=== PATIENT | female | born 1940 | race Caucasian/White ===

== ENCOUNTER → 2021-02-03 10:30 | Outpatient (CLI) | payer MEDICARE, SELFPAY ==
[2021-02-03 12:41] LABS: Bilirubin Urine UA NEGATIVE (NEGATIVE); Color Urine UA YELLOW; Glucose Urine UA NEGATIVE (Negative); Ketones Urine UA NEGATIVE (NEGATIVE); Leukocyte Esterase Urine UA TRACE (NEGATIVE); Nitrite Urine UA POSITIVE (Negative); Occult Blood Urine UA 2+ (Negative); Protein Urine UA NEGATIVE (Negative); Urobilinogen Urine UA 0.2 E.U./dL (0.2)
[2021-02-03 13:00] LABS: Appearance Urine UA Slightly Cloudy
[2021-02-03 13:04] LABS: Bacteria Urine Many (>30); Culture Indicated Urine Specimen Cultured; RBC Urine 1-5/HPF (0-5/HPF); WBC Urine 1-5/HPF (0-5/HPF)
== END ==
PROVIDERS: Referring Provider Student in an Organized Health Care Education/Training Program; Visit Provider Student in an Organized Health Care Education/Training Program
DX: R41.0 Disorientation, unspecified (principal)
CPT/HCPCS: 81001; 87077; 87086; 87186

== ENCOUNTER → 2021-02-25 13:52 | Outpatient (ROUT) | payer MEDICARE, SELFPAY ==
[2021-02-25 13:59] LABS: Appearance Urine UA CLEAR; Bilirubin Urine UA NEGATIVE (NEGATIVE); Color Urine UA YELLOW; Glucose Urine UA NEGATIVE (Negative); Ketones Urine UA TRACE (NEGATIVE); Leukocyte Esterase Urine UA NEGATIVE (NEGATIVE); Nitrite Urine UA NEGATIVE (Negative); Occult Blood Urine UA TRACE-INTACT (Negative); Protein Urine UA TRACE (Negative); Specific Gravity Urine UA 1.025 (1.000-1.035); Urobilinogen Urine UA 0.2 E.U./dL (0.2)
[2021-02-25 14:03] LABS: pH Urine UA 5.5 (4.5-8.0)
[2021-02-25 14:04] LABS: RBC Urine 5-10/HPF (0-5/HPF); WBC Urine 0-1/HPF (0-5/HPF)
[2021-02-25 14:05] LABS: Bacteria Urine None Seen
== END ==
PROVIDERS: Visit Provider Student in an Organized Health Care Education/Training Program
DX: N39.0 Urinary tract infection, site not specified (principal)
CPT/HCPCS: 81001; 87086

== ENCOUNTER → 2021-03-31 15:13 | Outpatient (CLI) | payer MEDICARE, SELFPAY ==
[2021-03-31 16:55] LABS: Appearance Urine UA CLEAR; Bilirubin Urine UA NEGATIVE (NEGATIVE); Color Urine UA YELLOW; Glucose Urine UA NEGATIVE (Negative); Ketones Urine UA TRACE (NEGATIVE); Leukocyte Esterase Urine UA NEGATIVE (NEGATIVE); Nitrite Urine UA NEGATIVE (Negative); Occult Blood Urine UA TRACE-LYSED (Negative); Protein Urine UA TRACE (Negative); Specific Gravity Urine UA 1.025 (1.000-1.035); Urobilinogen Urine UA 0.2 E.U./dL (0.2)
[2021-03-31 17:03] LABS: RBC Urine 1-5/HPF (0-5/HPF)
[2021-03-31 17:04] LABS: Amorphous Sediment Urine 1+; Bacteria Urine Occasional (0-1); Culture Indicated Urine Specimen Cultured; Mucus Urine 1+ (Negative); Squamous Epithelial Cell Urine 1-5 /HPF (0-5/HPF); WBC Urine 1-5/HPF (0-5/HPF)
== END ==
PROVIDERS: PCP Student in an Organized Health Care Education/Training Program; Referring Provider Student in an Organized Health Care Education/Training Program; Visit Provider Student in an Organized Health Care Education/Training Program
DX: Z00.01 Encounter for general adult medical examination with abnormal findings (principal); M81.0 Age-related osteoporosis without current pathological fracture; G20 Parkinson's disease; R26.89 Other abnormalities of gait and mobility; E53.8 Deficiency of other specified B group vitamins; D50.9 Iron deficiency anemia, unspecified
CPT/HCPCS: 81001; 87086

== ENCOUNTER → 2021-04-13 11:27 | Outpatient (ROUT) | payer MEDICARE, SELFPAY ==
[2021-04-13 11:44] LABS: Appearance Urine UA CLEAR; Bilirubin Urine UA NEGATIVE (NEGATIVE); Color Urine UA YELLOW; Glucose Urine UA NEGATIVE (Negative); Ketones Urine UA NEGATIVE (NEGATIVE); Leukocyte Esterase Urine UA NEGATIVE (NEGATIVE); Nitrite Urine UA NEGATIVE (Negative); Occult Blood Urine UA 1+ (Negative); Protein Urine UA NEGATIVE (Negative); Urobilinogen Urine UA 0.2 E.U./dL (0.2)
[2021-04-13 11:45] LABS: pH Urine UA 6.5 (4.5-8.0)
[2021-04-13 11:47] LABS: RBC Urine 1-5/HPF (0-5/HPF)
[2021-04-13 11:48] LABS: Bacteria Urine None Seen; Culture Indicated Urine Cult Not Indicated; WBC Urine None Seen (0-5/HPF)
== END ==
PROVIDERS: PCP Student in an Organized Health Care Education/Training Program; Visit Provider Student in an Organized Health Care Education/Training Program
DX: F05 Delirium due to known physiological condition (principal)
CPT/HCPCS: 81001

== ENCOUNTER → 2021-06-03 09:45 | Outpatient (CLI) | payer MEDICARE, SELFPAY ==
[2021-06-03 10:01] LABS: Appearance Urine UA CLEAR; Bilirubin Urine UA NEGATIVE (NEGATIVE); Color Urine UA YELLOW; Glucose Urine UA TRACE g/dL (Negative); Ketones Urine UA NEGATIVE (NEGATIVE); Leukocyte Esterase Urine UA NEGATIVE (NEGATIVE); Nitrite Urine UA NEGATIVE (Negative); Occult Blood Urine UA 1+ (Negative); Protein Urine UA NEGATIVE (Negative); Urobilinogen Urine UA 0.2 E.U./dL (0.2)
[2021-06-03 10:13] LABS: Bacteria Urine Moderate (10-30); Culture Indicated Urine Cult Not Indicated; RBC Urine 1-5/HPF (0-5/HPF); Squamous Epithelial Cell Urine 1-5 /HPF (0-5/HPF); WBC Urine 1-5/HPF (0-5/HPF)
== END ==
PROVIDERS: PCP Student in an Organized Health Care Education/Training Program; Referring Provider Student in an Organized Health Care Education/Training Program; Visit Provider Student in an Organized Health Care Education/Training Program
DX: F03.90 Unspecified dementia, unspecified severity, without behavioral disturbance, psychotic disturbance, mood disturbance, and anxiety (principal)
CPT/HCPCS: 81001

== ENCOUNTER → 2021-08-13 14:18 | Outpatient (CLI) | payer MEDICARE, SELFPAY ==
[2021-08-13 15:45] LABS: Appearance Urine UA CLEAR; Bilirubin Urine UA NEGATIVE (NEGATIVE); Color Urine UA YELLOW; Glucose Urine UA NEGATIVE (Negative); Ketones Urine UA NEGATIVE (NEGATIVE); Leukocyte Esterase Urine UA NEGATIVE (NEGATIVE); Nitrite Urine UA NEGATIVE (Negative); Occult Blood Urine UA 1+ (Negative); Protein Urine UA NEGATIVE (Negative); Urobilinogen Urine UA 0.2 E.U./dL (0.2)
[2021-08-13 16:06] LABS: pH Urine UA 5.5 (4.5-8.0)
[2021-08-13 16:07] LABS: Bacteria Urine Occasional (0-1); Culture Indicated Urine Cult Not Indicated; RBC Urine 5-10/HPF (0-5/HPF); Squamous Epithelial Cell Urine 0-1 /HPF (0-5/HPF); WBC Urine 0-1/HPF (0-5/HPF)
== END ==
PROVIDERS: PCP Student in an Organized Health Care Education/Training Program; Referring Provider Student in an Organized Health Care Education/Training Program; Visit Provider Student in an Organized Health Care Education/Training Program
DX: R39.15 Urgency of urination (principal)
CPT/HCPCS: 81001

== ENCOUNTER 2021-08-30 11:50 | Emergency (ER) | payer MEDICARE, SELFPAY ==
[2021-08-30 12:02] VITALS: BP 144/78; PULSE 75; RESP 16; TEMP 36.2; O2SAT 99; BMI 21.0
--- NOTE | 2021-08-30 13:18 | PC.NURSE ---
Call from she was sent for UTI symptoms. Call Lanie: [phone]
--- NOTE | 2021-08-30 13:55 | ED.FEMALEGU ---
HPI - Female Genitourinary <Kwabena Dave PA-C - Last Filed: 08/30/21 14:51> General Chief complaint: Urogenital-Female Stated complaint: possible uti Time Seen by Provider: 08/30/21 12:06 Source: EMS Mode of arrival: EMS History of Present Illness HPI Narrative: 80-year-old female with no reported past medical history sent to the ED by [facility] where she resides for dark colored urine and a potential blood clot in the urine. Patient states that she did not note any blurred in her urine, she even suspects that they might have mistaken somebody else's urine for hers. Patient states that over the last week she has had increased urgency, has not noted increased frequency. Denies dysuria. Patient denies fever, chills, nausea, vomiting, chest pain, shortness of breath, lightheadedness, dizziness, syncope. Related Data Previous Rx's Medication Instructions Recorded cefpodoxime 200 mg tablet 400 mg PO Q12H 10 days #40 tabs 08/30/21 Allergies Allergy/AdvReac Type Severity Reaction Status Date / Time Sulfa (Sulfonamide Allergy Hives Verified 08/30/21 12:04 Antibiotics) Review of Systems <Kwabena Dave PA-C - Last Filed: 08/30/21 14:51> Review of Systems ROS Unobtainable: All systems reviewed & are unremarkable except as noted in HPI and below Constitutional Constitutional: Denies chills, Denies fatigue, Denies fever(s), Denies frequent falls, Denies lethargy and Denies weakness Eyes Eyes: Denies change in vision, Denies eye discharge, Denies irritation and Denies loss of vision ENT Ears, Nose, Mouth, and Throat: Denies change in voice, Denies dizziness, Denies neck pain, Denies sore throat and Denies throat swelling Cardiovascular Cardiovascular: Denies chest pain, Denies irregular heart rhythm, Denies lightheadedness, Denies palpitations, Denies dyspnea, Denies dyspnea on exertion and Denies orthopnea Respiratory Respiratory: Denies cough, Denies dyspnea, Denies dyspnea on exertion and Denies wheezing Gastrointestinal Gastrointestinal: Denies abdominal pain, Denies change in bowel habits, Denies diarrhea, Denies nausea and Denies vomiting Genitourinary Genitourinary: Reports hematuria, Denies dysuria, Denies flank pain, Denies urinary incontinence and Reports urinary urgency Comments: No urinary frequency Musculoskeletal Musculoskeletal: Denies back pain, Denies muscle weakness, Denies neck pain, Denies numbness and Denies tingling Integumentary/Breasts Skin/Breast: Denies pruritus, Denies erythema, Denies rash and Denies wounds Neurologic Neurologic: Denies behavioral changes, Denies confusion, Denies dizziness, Denies frequent falls, Denies loss of vision, Denies numbness, Denies tingling and Denies weakness Psychiatric Psychiatric: Denies anxiety, Denies behavioral changes, Denies confusion, Denies depression, Denies homicidal ideation and Denies suicidal ideation Endocrine Endocrine: Denies fatigue, Denies flushing and Denies palpitations Hematologic/Lymphatic Hematologic/Lymphatic: Denies easy bruising Allergic/Immunologic Allergic/Immunologic: Denies urticaria, Denies throat swelling and Denies wheezing Patient History <Kwabena Dave PA-C - Last Filed: 08/30/21 14:51> alcohol intake frequency: a few times a week Alcohol type: wine Substance Use Type: does not use Exam <MOIRA Alexandre Last Filed: 08/30/21 14:51> Initial Vital Signs Initial Vital Signs: Vital Signs Temperature 97.2 F L 08/30/21 12:02 Pulse Rate 75 08/30/21 12:02 Respiratory Rate 16 08/30/21 12:02 Blood Pressure 144/78 H 08/30/21 12:02 Pulse Oximetry 99 08/30/21 12:02 Oxygen Delivery Method 08/30/21 12:02 Const General: cooperative HENPR Head: normocephalic and atraumatic Ears: external ears normal and TM's normal bilaterally Nose: external nose normal and No nasal discharge Face and sinus: sinuses nontender, face symmetric, no sinus tenderness and No dry mucous membranes Mouth: oral mucosae normal and moist mucous membranes Teeth and gingiva: dentition normal Throat: tonsils normal and uvula midline Eyes General: Yes appearance normal, both eyes and all related structures Eyelids: eyelids normal Conjunctivae: conjunctivae normal Sclera: sclerae normal Pupils: PERRL EOM: EOM intact bilaterally Neck Neck: normal visual inspection, trachea midline, No lymphadenopathy, No midline deformity and No JVD Lymphatic: No lymphedema Chest Chest: normal inspection of the chest Resp Effort & Inspection: normal respiratory effort, able to speak in complete sentences, no respiratory distress and no use of accessory muscles Auscultation: clear to auscultation bilaterally, no rales, no rhonchi and no wheezes Cardio Rate: regular rate Rhythm: regular rhythm Heart Sounds: no click, no gallops, no murmurs and no rubs Pulses: normal peripheral pulses GI Inspection: non-distended Palpation: soft, no hepatosplenomegaly, No guarding, No pulsatile mass and No tender Auscultation: normal bowel sounds Other: Abdomen is soft, nondistended, nontender to palpation. General: No CVA tenderness Back/Spine/Pelvis Back: No CVA tenderness Cervical Spine: cervical ROM normal and No pain with cervical ROM Thoracic/Lumbar Spine: thoracic and lumbar spine normal to inspection Skin General: no rashes or lesions noted, No jaundice and No petechiae Neuro General: patient alert, patient oriented x3, gait normal and no focal motor deficits Speech: speech normal Extrem General: full ROM, no clubbing, cyanosis or edema, no pedal edema and no calf tenderness Psych Appearance: well kempt Mental Status: mental status grossly normal Attitude: cooperative Thought Content: normal and suicidality Judgment: judgment good <DO Francisco Huerta Last Filed: 08/31/21 20:41> Initial Vital Signs Initial Vital Signs: Vital Signs Temperature 97.2 F L 08/30/21 12:02 Pulse Rate 75 08/30/21 12:02 Respiratory Rate 16 08/30/21 12:02 Blood Pressure 144/78 H 08/30/21 12:02 Pulse Oximetry 99 08/30/21 12:02 Oxygen Delivery Method 08/30/21 12:02 Course <Kwabena Dave PA-C - Last Filed: 08/30/21 14:51> Orders Ordered: ED Orders 08/30/21 13:37 Urinalysis and Microscopic Stat Urine Culture Stat Vital Signs Vital signs: Vital Signs - 8 hr 08/30/21 12:02 Temperature 97.2 F L Pulse Rate 75 Respiratory Rate 16 Blood Pressure 144/78 H Pulse Oximetry 99 Oxygen Delivery Method Room Air <Nicolle Torres DO - Last Filed: 08/31/21 20:41> Orders Ordered: ED Orders 08/30/21 13:37 Urinalysis and Microscopic Stat Urine Culture Stat Vital Signs Vital signs: Vital Signs - 8 hr 08/30/21 12:02 Temperature 97.2 F L Pulse Rate 75 Respiratory Rate 16 Blood Pressure 144/78 H Pulse Oximetry 99 Oxygen Delivery Method Room Air MDM - Female Genitourinary <Kwabena Dave PA-C - Last Filed: 08/30/21 14:51> Lab Data Lab results narrative: UA positive for UTI. Will send for urine culture. Labs: Lab Results 08/30/21 Range/Units 13:37 Urine Color Yellow Urine Appearance Cloudy Urine pH 8.0 (4.5-8.0) Ur Specific [place] 1.015 (1.000-1.035) Urine Protein 2+ H (Negative) Urine Glucose (UA) Negative (Negative) g/dL Urine Ketones Negative (NEGATIVE) Urine Occult Blood 3+ H (Negative) Urine Nitrate Positive H (Negative) Urine Bilirubin Negative (NEGATIVE) Urine Urobilinogen 0.2 (0.2) E.U./dL Ur Leukocyte Esterase 3+ H (NEGATIVE) Urine RBC 5-10/hpf H (0-5/HPF) Urine WBC >100/hpf H (0-5/HPF) Triple Phos Crystals Few Urine Bacteria Many (>30) H (None) Ur Culture Indicated? Specimen cultured MDM Narrative Medical decision making narrative: 80-year-old female with no reported past medical history sent to the ED by [facility] where she resides for dark colored urine and a potential blood clot in the urine. Concern for UTI. Will check UA, reassess. UA positive for UTI. Will send sample for urine culture. Prescribed cefpodoxime. ED return precautions discussed with patient. Patient verbalized understanding. <Nicolle Torres DO - Last Filed: 08/31/21 20:41> Lab Data Labs: Lab Results 08/30/21 Range/Units 13:37 Urine Color Yellow Urine Appearance Cloudy Urine pH 8.0 (4.5-8.0) Ur Specific [place] 1.015 (1.000-1.035) Urine Protein 2+ H (Negative) Urine Glucose (UA) Negative (Negative) g/dL Urine Ketones Negative (NEGATIVE) Urine Occult Blood 3+ H (Negative) Urine Nitrate Positive H (Negative) Urine Bilirubin Negative (NEGATIVE) Urine Urobilinogen 0.2 (0.2) E.U./dL Ur Leukocyte Esterase 3+ H (NEGATIVE) Urine RBC 5-10/hpf H (0-5/HPF) Urine WBC >100/hpf H (0-5/HPF) Triple Phos Crystals Few Urine Bacteria Many (>30) H (None) Ur Culture Indicated? Specimen cultured Discharge Plan Departure Patient Disposition: Home Clinical Impression: Urinary tract infection Instructions: DI for Urinary Tract Infection (UTI) Activity Restrictions/Additional Instructions: You were evaluated in the ED today for dark urine, urinary urgency. Your urine shows a urinary tract infection, for which you are being started on antibiotics. Please complete the full course of antibiotics. Return to the ED if you have worsening symptoms, nausea, vomiting, fever, chills, painful urination, chest pain, shortness of breath. Prescriptions: New cefpodoxime 200 mg tablet 400 mg PO Q12H 10 Days Qty: 40 0RF Rx Instructions: must administer with a meal/food Referrals: Nadia Casanova MD [Primary Care Provider] - Visit Report Forms: Patient Portal/API <Nicolle Torres DO - Last Filed: 08/31/21 20:41> Cosign ED Attending Cosnavjotature Attestation: I was immediately available in the department for consultation. Documentation has been reviewed. I agree with assessment and plan.
[2021-08-30 14:13] LABS: Appearance Urine UA CLOUDY; Bilirubin Urine UA NEGATIVE (NEGATIVE); Color Urine UA YELLOW; Glucose Urine UA NEGATIVE (Negative); Ketones Urine UA NEGATIVE (NEGATIVE); Leukocyte Esterase Urine UA 3+ (NEGATIVE); Nitrite Urine UA POSITIVE (Negative); Occult Blood Urine UA 3+ (Negative); Protein Urine UA 2+ (Negative); Specific Gravity Urine UA 1.015 (1.000-1.035); Urobilinogen Urine UA 0.2 E.U./dL (0.2)
[2021-08-30 14:36] LABS: Bacteria Urine Many (>30); Culture Indicated Urine Specimen Cultured; RBC Urine 5-10/HPF (0-5/HPF); Triple Phosphate Crystal Urine Few; WBC Urine >100/HPF (0-5/HPF)
[2021-08-30 16:28] VITALS: BP 145/79; PULSE 76; RESP 16; O2SAT 99
== END 2021-08-30 16:15 | disposition home or self-care (01) ==
PROVIDERS: Emergency Provider Student in an Organized Health Care Education/Training Program; PCP Student in an Organized Health Care Education/Training Program
DX: N39.0 Urinary tract infection, site not specified (principal)
CPT/HCPCS: 81001; 87077; 87086; 87186; 99281; 99282

== ENCOUNTER 2021-09-29 12:08 | Emergency (ER) | payer MEDICARE, SELFPAY ==
[2021-09-29 12:12] VITALS: PULSE 77; O2SAT 96
[2021-09-29 12:15] VITALS: BP 135/63; PULSE 71; RESP 18; TEMP 36.6; O2SAT 97; BMI 18.3
[2021-09-29 12:26] VITALS: BP 135/63; PULSE 72; RESP 23; O2SAT 97
[2021-09-29 12:38] LABS: Add Manual Diff / Slide Review NO; Basophils Absolute Auto 100 /uL (0-100); Basophils Percent Auto 0.9 % (0-2); Eosinophils Absolute Auto 100 /uL (0-450); Eosinophils Percent Auto 1.1 % (2-4); Hematocrit 34.2 % (36-46); Hemoglobin 11.8 g/dL (12.0-16.0); Lymphocytes Absolute Auto 1700 /uL (1100-4500); Lymphocytes Percent Auto 26.2 % (25-40); Mean Corpuscular HGB Conc 34.3 % (30-36); Mean Corpuscular Hemoglobin 32.5 PG (26-34); Mean Corpuscular Volume 94.7 fL (80-100); Monocytes Absolute Auto 600 /uL (0-900); Monocytes Percent Auto 9.4 % (3-14); Neutrophils Absolute Auto 4000 /uL (1500-7000); Neutrophils Percent Auto 62.4 % (50-75); Platelet Count 503 X10^3/uL (150-400); Red Blood Cell Count 3.62 X10^6/uL (4.0-5.2); Red Cell Distribution Width 14.6 % (11.6-14.8); White Blood Cell Count 6.5 X10^3/uL (4.5-11.0)
--- NOTE | 2021-09-29 12:43 | ED_ITS ---
HPI - Female Genitourinary General Chief complaint: Urogenital-Female Stated complaint: UTI,hx dementia Time Seen by Provider: 09/29/21 12:17 Source: patient and EMS Mode of arrival: EMS History of Present Illness HPI Narrative: Patient is a 81-year-old female history of dementia lives in a [facility] presenting today with painful frequent urination. She says it started 2 days ago. She also complains of labia swelling which actually decreases with meditation and music. She denies fevers chills. No nausea or vomiting. No flank pain. She is actually able to answer questions and provide significant history. We have no prior records to compare. But she overall appears well. Related Data Previous Rx's Medication Instructions Recorded ciprofloxacin HCl 500 mg tablet 500 mg PO BID #14 tabs 09/29/21 (Cipro) Allergies Allergy/AdvReac Type Severity Reaction Status Date / Time Sulfa (Sulfonamide Allergy Hives Verified 08/30/21 12:04 Antibiotics) Review of Systems Review of Systems Narrative: GENERAL: Denies chills,fever HEENT: Denies throat pain RESPIRATORY: Denies dyspnea, cough, wheezing CARDIOVASCULAR: Denies chest pain, palpitations : See HPI GASTROINTESTINAL: Denies nausea, vomiting MUSCULOSKELETAL: Denies extremity pain, injury SKIN: No rash, no laceration, no pruritus NEUROLOGIC: Denies weakness, dizziness, headache, numbness 8 point review of systems is negative except for those stated above and HPI Patient History alcohol intake frequency: 0-2 drinks per day Alcohol type: wine Substance Use Type: does not use Exam Initial Vital Signs Initial Vital Signs: Vital Signs Pulse Rate 77 09/29/21 12:12 Pulse Oximetry 96 09/29/21 12:12 GENERAL: Alert pleasant 81-year-old female HEENT: Head atraumatic,EOMI, pupils reactive, face symmetric, moist mucous membranes CARDIOVASCULAR: Regular rate and rhythm without murmurs, rubs or gallops. RESPIRATORY: Breath sounds equal bilaterally, no wheezes rales or rhonchi. ABDOMEN: Soft, nontender. Normoactive bowel sounds all 4 quadrants. No guarding or rebound. : No CVA tenderness PELVIC: Vagina is sewn together no significant swelling of either sleepy. Minimal rash erythema blanchable EXTREMITIES: Normal range of motion, no clubbing or edema. Neurovascularly intact NEUROLOGICAL: Alert and oriented x2. SKIN: Warm, dry, no laceration, no petechiae, no rashes or lesions. Course Orders Ordered: ED Orders 09/29/21 12:22 CBC Auto Diff [Complete Blood Count AUTO DIFF] Stat CMP [Comprehensive Metabolic Panel] Stat 09/29/21 12:40 UA Complete [Urinalysis and Microscopic] Stat Urine Culture Stat Vital Signs Vital signs: Vital Signs - 8 hr 09/29/21 12:15 09/29/21 12:12 09/29/21 12:26 Temperature 97.9 F Pulse Rate 71 77 72 Respiratory Rate 18 23 Blood Pressure 135/63 Pulse Oximetry 97 96 97 Oxygen Delivery Method Room Air 09/29/21 12:26 Temperature Pulse Rate Respiratory Rate Blood Pressure 135/63 Pulse Oximetry Oxygen Delivery Method MDM - Female Genitourinary Lab Data Result diagrams: 09/29/21 12:22 09/29/21 12:22 Labs: Lab Results 09/29/21 09/29/21 09/29/21 Range/Units 12:22 12:22 12:40 WBC 6.5 (4.5-11.0) X10^3/uL RBC 3.62 L (4.0-5.2) X10^6/uL Hgb 11.8 L (12.0-16.0) g/dL Hct 34.2 L (36-46) % MCV 94.7 (80-100) fL MCH 32.5 (26-34) PG MCHC 34.3 (30-36) % RDW 14.6 (11.6-14.8) % Plt Count 503 H (150-400) X10^3/uL Neut % (Auto) 62.4 (50-75) % Lymph % (Auto) 26.2 (25-40) % [place] % (Auto) 9.4 (3-14) % Eos % (Auto) 1.1 L (2-4) % Baso % (Auto) 0.9 (0-2) % Neut # (Auto) 4000 (3233-9582) /uL Lymph # (Auto) 1700 (4371-9413) /uL [place] # (Auto) 600 (0-900) /uL Eos # (Auto) 100 (0-450) /uL Baso # (Auto) 100 (0-100) /uL Sodium 136 L (137-145) mmol/L Potassium 4.3 (3.4-5.1) mmol/L Chloride 104 (98-107) mmol/L Carbon Dioxide 22 (22-32) mmol/L BUN 19 H (7-17) mg/dL Creatinine 0.59 (0.52-1.04) mg/dL Estimated GFR > 60 (>60) mL/min BUN/Creatinine Ratio 32.2 H (6-22) Glucose 90 (80-110) mg/dL Calcium 8.7 (8.4-10.2) mg/dL Total Bilirubin 0.3 (0.2-1.3) mg/dL AST 31 (14-36) IU/L ALT 9 (<35) IU/L Alkaline Phosphatase 71 (38-126) U/L Total Protein 7.7 (6.3-8.2) g/dL Albumin 4.2 (3.5-5.0) g/dL Globulin 3.5 (1.7-4.1) g/dL Albumin/Globulin Ratio 1.2 (1.0-2.8) Urine Color Yellow Urine Appearance Sl cloudy Urine pH 5.5 (4.5-8.0) Ur Specific [place] 1.015 (1.000-1.035) Urine Protein Trace H (Negative) Urine Glucose (UA) Negative (Negative) g/dL Urine Ketones Negative (NEGATIVE) Urine Occult Blood 1+ H (Negative) Urine Nitrate Positive H (Negative) Urine Bilirubin Negative (NEGATIVE) Urine Urobilinogen 0.2 (0.2) E.U./dL Ur Leukocyte Esterase 2+ H (NEGATIVE) Urine RBC 1-5/hpf (0-5/HPF) Urine WBC 30-100/hpf H (0-5/HPF) Ur Squamous Epith Cells 0-1 /hpf (0-5/HPF) Urine Bacteria Many (>30) H (None) Ur Culture Indicated? Specimen cultured Urine Dip Bedside Urine Glucose Negative Bedside Urine Bilirubin - Negative Bedside Urine Ketone - Negative Urine Specific [place] 1.015 Bedside Urine Occult Blood +/- Bedside Urine pH 6.0 Bedside Urine Protein +/- 15 Bedside Urine Urobilinogen - Negative Bedside Urine Nitrite + Positive Bedside Urine Leukocytes ++ 125 Esterase MDM Narrative Medical decision making narrative: Patient overall appears well. She is not septic blood work is reassuring she obviously does have UTI. Previous culture showed that she had some resistance to flow cefazolin Macrobid it is sensitive to other medications. He seems to be set sensitive to fluoroquinolones. Will start her on Cipro. Urine Culture Final 09/01/21647 Organism 1 Proteus mirabilis [place] Count >100,000 CFU/ml Action to follow No Further Workup 1. Proteus mirabilis M.I.C. RX --------- --- * Amoxicillin/Clavulanate 8 S * Ampicillin <=2 S * Ampicillin/Sulbactam <=2 S * Cefazolin 8 R * Cefepime <=1 S * Ceftazidime <=1 S * Ceftriaxone <=1 S * Ciprofloxacin <=0.25 S * Ertapenem <=0.5 S * Gentamicin <=1 S * Imipenem 2 I * Levofloxacin <=0.12 S * Nitrofurantoin 128 R * Tobramycin <=1 S * Trimethoprim/Sulfamethoxazole <=20 S * Piperacillin/Tazobactam <=4 S Discharge Plan Departure Patient Disposition: Home Clinical Impression: Urinary tract infection Instructions: DI for Urinary Tract Infection (UTI) Activity Restrictions/Additional Instructions: *You have been diagnosed with UTI *What to do: At this time please follow-up with your new PCP. *Continue to take medications as directed Cipro 500 mg twice a day for 7 days --> SENT TO [facility] *Follow up with your primary care provider in 2-3 days or call [phone] *Return to ER if you should have increasing confusion, fever, persistent vomiting or any new, worsening or concerning symptoms Prescriptions: New ciprofloxacin HCl [Cipro] 500 mg tablet 500 mg PO BID Qty: 14 0RF Referrals: Nadia Casanova MD [Primary Care Provider] - Visit Report Forms: Patient Portal/API
[2021-09-29 12:46] LABS: Alanine Aminotransferase 9 IU/L (<35); Albumin 4.2 g/dL (3.5-5.0); Albumin Globulin Ratio 1.2 (1.0-2.8); Alkaline Phosphatase 71 U/L (38-126); Aspartate Aminotransferase 31 IU/L (14-36); BUN Creatinine Ratio 32.2 (6-22); Bilirubin Total 0.3 mg/dL (0.2-1.3); Blood Urea Nitrogen 19 mg/dL (7-17); Calcium 8.7 mg/dL (8.4-10.2); Carbon Dioxide 22 mmol/L (22-32); Chloride 104 mmol/L (98-107); Estimated Glomerular Filt Rate > 60 mL/min (>60); Globulin 3.5 g/dL (1.7-4.1); Glucose 90 mg/dL (80-110); HEMOLYSIS 25 (0-50); Potassium 4.3 mmol/L (3.4-5.1); Sodium 136 mmol/L (137-145); Total Protein 7.7 g/dL (6.3-8.2)
[2021-09-29 12:56] LABS: Appearance Urine UA SL CLOUDY; Bilirubin Urine UA NEGATIVE (NEGATIVE); Color Urine UA YELLOW; Glucose Urine UA NEGATIVE (Negative); Ketones Urine UA NEGATIVE (NEGATIVE); Leukocyte Esterase Urine UA 2+ (NEGATIVE); Nitrite Urine UA POSITIVE (Negative); Occult Blood Urine UA 1+ (Negative); Protein Urine UA TRACE (Negative); Specific Gravity Urine UA 1.015 (1.000-1.035); Urobilinogen Urine UA 0.2 E.U./dL (0.2); pH Urine UA 5.5 (4.5-8.0)
[2021-09-29 13:04] LABS: Bacteria Urine Many (>30); Culture Indicated Urine Specimen Cultured; RBC Urine 1-5/HPF (0-5/HPF); Squamous Epithelial Cell Urine 0-1 /HPF (0-5/HPF); WBC Urine 30-100/HPF (0-5/HPF)
== END 2021-09-29 14:55 | disposition home or self-care (01) ==
PROVIDERS: Emergency Provider Emergency Medicine; PCP Student in an Organized Health Care Education/Training Program
DX: N39.0 Urinary tract infection, site not specified (principal)
CPT/HCPCS: 36415; 80053; 81001; 81003; 85025; 87077; 87086; 87186; 99283

== ENCOUNTER 2021-11-08 15:22 | Emergency (ER) | payer MEDICARE, SELFPAY ==
[2021-11-08 15:10] VITALS: BP 159/76; PULSE 70; RESP 16; TEMP 37.1; O2SAT 98; BMI 21.0
--- NOTE | 2021-11-08 15:18 | DI.RAD.S_ITS ---
PROCEDURE: XR CHEST 1V INDICATIONS: chest pain TECHNIQUE: One view of the chest was acquired. COMPARISON: [facility], CT, CT CERVICAL SPINE WO CON, 11/08/2021, 15:28. [facility], CT, CT HEAD/BRAIN WO CON, 11/08/2021, 15:28. FINDINGS: Surgical changes and devices: None. Lungs and pleura: On this semiupright portable chest examination, no large pneumothorax or large pleural effusions are seen. No focal infiltrates are seen. Mediastinum: The cardiac contours are within normal limits. The aorta demonstrates calcification and tortuosity. Bones and chest wall: No suspicious bony lesions. Overlying soft tissues appear unremarkable. IMPRESSION: Limited portable chest examination, without a significant cardiopulmonary abnormality identified. Dictated by: Eh Najera M.D. on 11/08/2021 at 14:41 Approved by: Eh Najera M.D. on 11/08/2021 at 14:42
--- NOTE | 2021-11-08 15:20 | DI.CT.S_ITS ---
PROCEDURE: CT HEAD/BRAIN WO CON INDICATIONS: fall, hit head TECHNIQUE: Noncontrast 4.5 mm thick angled axial sections acquired from the foramen magnum to the vertex, with coronal and sagittal reformats. For radiation dose reduction, the following was used: automated exposure control, adjustment of mA and/or kV according to patient size. COMPARISON: [facility], CT, CT CERVICAL SPINE WO CON, 11/08/2021, 15:28. [facility], CR, XR CHEST 1V, 11/08/2021, 15:26. FINDINGS: Image quality: Excellent. CSF spaces: Basal cisterns are patent. No extra-axial fluid collections. The ventricles are symmetric in size and shape. Brain: No intracranial bleeds or masses. There is cerebral volume loss for age, with resultant ventricular and sulcal prominence. There are periventricular and deep white matter chronic small vessel ischemic changes. There is intracranial internal carotid artery atherosclerosis. Skull and face: Calvarium and visualized facial bones appear intact, without suspicious lesions. Sinuses: Visualized sinuses and mastoids are clear. IMPRESSION: No acute intracranial hemorrhage is seen. No acute intracranial process is seen. Dictated by: Eh Najera M.D. on 11/08/2021 at 14:43 Approved by: Eh Najera M.D. on 11/08/2021 at 14:43
--- NOTE | 2021-11-08 15:21 | DI.CT.S_ITS ---
PROCEDURE: CT CERVICAL SPINE WO CON INDICATIONS: fall, LOC TECHNIQUE: Noncontrast 3 mm thick sections acquired from the skull base to the T4 level. Sagittal and coronal reformats were then constructed. For radiation dose reduction, the following was used: automated exposure control, adjustment of mA and/or kV according to patient size. COMPARISON: [facility], CT, CT HEAD/BRAIN WO CON, 11/08/2021, 15:28. [facility], CR, XR CHEST 1V, 11/08/2021, 15:26. FINDINGS: Image quality: Excellent. Bones: No fractures or dislocations. Visualized superior ribs are intact. There is mild disc space narrowing at C5-C6, with moderate disc space narrowing at C6-C7. Endplate irregularity and sclerosis are seen, which are worst at C6-C7. Soft tissues: Prevertebral soft tissues are normal in thickness. No paravertebral hematomas. No apical pneumothoraces. Atherosclerotic calcification is noted. IMPRESSION: Negative for fracture. Cervical spine degenerative changes are seen, which are worst at C6-C7. Dictated by: Eh Najera M.D. on 11/08/2021 at 14:44 Approved by: Eh Najera M.D. on 11/08/2021 at 14:49
[2021-11-08 15:32] LABS: Add Manual Diff / Slide Review NO; Basophils Absolute Auto 100 /uL (0-100); Basophils Percent Auto 0.9 % (0-2); Eosinophils Absolute Auto 100 /uL (0-450); Eosinophils Percent Auto 0.8 % (2-4); Hematocrit 32.2 % (36-46); Lymphocytes Absolute Auto 1700 /uL (1100-4500); Lymphocytes Percent Auto 26.6 % (25-40); Mean Corpuscular HGB Conc 34.1 % (30-36); Mean Corpuscular Volume 96.7 fL (80-100); Monocytes Absolute Auto 600 /uL (0-900); Monocytes Percent Auto 9.7 % (3-14); Neutrophils Absolute Auto 4000 /uL (1500-7000); Platelet Count 475 X10^3/uL (150-400); Red Blood Cell Count 3.33 X10^6/uL (4.0-5.2); Red Cell Distribution Width 14.5 % (11.6-14.8); White Blood Cell Count 6.5 X10^3/uL (4.5-11.0)
[2021-11-08 15:43] LABS: Alanine Aminotransferase 19 IU/L (<35); Albumin Globulin Ratio 1.3 (1.0-2.8); Alkaline Phosphatase 63 U/L (38-126); Aspartate Aminotransferase 26 IU/L (14-36); BUN Creatinine Ratio 31.7 (6-22); Bilirubin Total 0.3 mg/dL (0.2-1.3); Blood Urea Nitrogen 19 mg/dL (7-17); Calcium 8.4 mg/dL (8.4-10.2); Carbon Dioxide 25 mmol/L (22-32); Chloride 104 mmol/L (98-107); Creatine Kinase 54 U/L (30-135); Estimated Glomerular Filt Rate > 60 mL/min (>60); Globulin 3.1 g/dL (1.7-4.1); Glucose 107 mg/dL (80-110); HEMOLYSIS < 15 (0-50); Lipase 144 U/L (23-300); Magnesium 2.1 mg/dL (1.6-2.3); Potassium 4.2 mmol/L (3.4-5.1); Sodium 137 mmol/L (137-145); Total Protein 7.1 g/dL (6.3-8.2)
[2021-11-08 15:54] LABS: Troponin I < 0.012 ng/mL (0.01-0.034)
--- NOTE | 2021-11-08 16:33 | PC.NURSE ---
Patient lives at [facility] home, was found on the floor. Unwitnessed fall. Patient has no recollection of events leading up to fall. Patient reports just waking up on the floor. Patient presents with a laceration above the left eyebrow. Patient denies pain to palpation of C-spine, denies chest pain or SOB. Reports headache and slight dizziness. Alert and oriented x3
--- NOTE | 2021-11-08 16:39 | PC.NURSE ---
per patient request Johnny Hackett called, no answer and left voicemail.
[2021-11-08 16:57] VITALS: BP 180/78; PULSE 75; RESP 12; O2SAT 96
--- NOTE | 2021-11-08 17:03 | ED.FALL ---
HPI - Fall General Chief Complaint: Fall Stated Complaint: Unwitnessed fall, laceration Time Seen by Provider: 11/08/21 15:28 Source: EMS Mode of arrival: EMS History of Present Illness HPI Narrative: 81-year-old woman who lives at [facility], a [facility] facility was found on the ground today with loss of consciousness a laceration above her left eye complaining of a headache and unaware how she ended up on the ground. She has a history of dementia. Related Data Previous Rx's Medication Instructions Recorded ciprofloxacin HCl 500 mg tablet 500 mg PO BID #14 tabs 09/29/21 (Cipro) Allergies Allergy/AdvReac Type Severity Reaction Status Date / Time Sulfa (Sulfonamide Allergy Hives Verified 08/30/21 12:04 Antibiotics) Review of Systems Review of Systems ROS Unobtainable: Unobtainable due to medical condition Patient History Medical History Dementia Social History Smoking Status: Never smoker Smoking Status: Never smoker alcohol intake frequency: 0-2 drinks per day Alcohol type: wine Substance Use Type: does not use Exam Initial Vital Signs Initial Vital Signs: Vital Signs Temperature 98.8 F 11/08/21 15:10 Pulse Rate 70 11/08/21 15:10 Respiratory Rate 16 11/08/21 15:10 Blood Pressure 159/76 H 11/08/21 15:10 Pulse Oximetry 98 11/08/21 15:10 Oxygen Delivery Method 11/08/21 15:10 General: Frail appearing woman in no acute distress. Not oriented to events but pleasant to chat with. HEENT: Moist mucous membranes, normal sclera with reactive pupils, 1.5 cm laceration above the left eyebrow. Bleeding has been controlled. Neck: No JVD, supple, no midline cervical spine tenderness Respiratory: Lungs are clear to auscultation, no wheezing no rales no rhonchi. Full and symmetrical air movement Chest: No tenderness with palpation of ribs or thoracic spine Cardiac: Regular rate and rhythm no murmurs no bruits Abdomen: Soft, nontender, good bowel tones, no flank pain, no tenderness with lumbar sacral spine. No pain with pelvic ring manipulation. Skin: Warm and dry, no rashes Neurologic: Grossly neurologically intact with no obvious asymmetries or abnormalities Extremities: No trauma, well perfused, no pain with hip manipulation. Psych: Cooperative, fluent speech but pleasantly demented Procedures Laceration Repair Left brow laceration: Time of procedure: 17:25 Site: face Side (If applicable): left Size (cm): 1.5 Description: linear Depth: simple, single layer Pre-repair: wound explored and deep structures intact Skin layer closed with: dermabond (and Steri-Strips) Course Orders Ordered: ED Orders 11/08/21 15:18 XR chest 1V Stat EKG-12 Lead Stat 11/08/21 15:20 CT head/brain wo con Stat 11/08/21 15:21 CT cervical spine wo con Stat 11/08/21 15:24 Complete Blood Count AUTO DIFF Stat Comprehensive Metabolic Panel Stat Lipase Stat Magnesium Stat Troponin & CK Cardiac Panel Stat Vital Signs Vital signs: Vital Signs - 8 hr 11/08/21 15:10 11/08/21 16:57 Temperature 98.8 F Pulse Rate 70 75 Respiratory Rate 16 12 Blood Pressure 159/76 H 180/78 H Pulse Oximetry 98 96 Oxygen Delivery Method Room Air Room Air MDM - Fall Lab Data Result diagrams: 11/08/21 15:24 11/08/21 15:24 Labs: Lab Results 11/08/21 11/08/21 Range/Units 15:24 15:24 WBC 6.5 (4.5-11.0) X10^3/uL RBC 3.33 L (4.0-5.2) X10^6/uL Hgb 11.0 L (12.0-16.0) g/dL Hct 32.2 L (36-46) % MCV 96.7 (80-100) fL MCH 33.0 (26-34) PG MCHC 34.1 (30-36) % RDW 14.5 (11.6-14.8) % Plt Count 475 H (150-400) X10^3/uL Neut % (Auto) 62.0 (50-75) % Lymph % (Auto) 26.6 (25-40) % [place] % (Auto) 9.7 (3-14) % Eos % (Auto) 0.8 L (2-4) % Baso % (Auto) 0.9 (0-2) % Neut # (Auto) 4000 (4601-7932) /uL Lymph # (Auto) 1700 (4093-2499) /uL [place] # (Auto) 600 (0-900) /uL Eos # (Auto) 100 (0-450) /uL Baso # (Auto) 100 (0-100) /uL Sodium 137 (137-145) mmol/L Potassium 4.2 (3.4-5.1) mmol/L Chloride 104 (98-107) mmol/L Carbon Dioxide 25 (22-32) mmol/L BUN 19 H (7-17) mg/dL Creatinine 0.60 (0.52-1.04) mg/dL Estimated GFR > 60 (>60) mL/min BUN/Creatinine Ratio 31.7 H (6-22) Glucose 107 (80-110) mg/dL Calcium 8.4 (8.4-10.2) mg/dL Magnesium 2.1 (1.6-2.3) mg/dL Total Bilirubin 0.3 (0.2-1.3) mg/dL AST 26 (14-36) IU/L ALT 19 (<35) IU/L Alkaline Phosphatase 63 (38-126) U/L Total Creatine Kinase 54 (30-135) U/L CK-MB (CK-2) TNP CK-MB (CK-2) Rel Index TNP Troponin I < 0.012 (0.01-0.034) ng/mL Total Protein 7.1 (6.3-8.2) g/dL Albumin 4.0 (3.5-5.0) g/dL Globulin 3.1 (1.7-4.1) g/dL Albumin/Globulin Ratio 1.3 (1.0-2.8) Lipase 144 (23-300) U/L Imaging Data Chest x-ray: Radiologist's Impression: FINDINGS:? ? Surgical changes and devices:? None.? ? Lungs and pleura:? On this semiupright portable chest examination, no large pneumothorax or large pleural effusions are seen.? No focal infiltrates are seen.? ? Mediastinum:? The cardiac contours are within normal limits. The aorta demonstrates calcification and tortuosity. ? Bones and chest wall:? No suspicious bony lesions.? Overlying soft tissues appear unremarkable.? ? IMPRESSION:? ? Limited portable chest examination, without a significant cardiopulmonary abnormality identified.? ? ? Dictated by: Eh Najera M.D. on 11/08/2021 at 14:41 ? ? CT scan - head: Radiologist's Impression: FINDINGS:? Image quality:? Excellent.? ? CSF spaces:? Basal cisterns are patent.? No extra-axial fluid collections.? The ventricles are symmetric in size and shape.? ? Brain:? No intracranial bleeds or masses.? There is cerebral volume loss for age, with resultant ventricular and sulcal prominence.? There are periventricular and deep white matter chronic small vessel ischemic changes.? There is intracranial internal carotid artery atherosclerosis.? ? Skull and face:? Calvarium and visualized facial bones appear intact, without suspicious lesions.? ? Sinuses:? Visualized sinuses and mastoids are clear.? ? ? IMPRESSION:? No acute intracranial hemorrhage is seen.? ? No acute intracranial process is seen.? ? ? Dictated by: Eh Najera M.D. on 11/08/2021 at 14:43 ? ? CT - cervical spine: Radiologist's Impression: FINDINGS:? Image quality:? Excellent.? ? Bones:? No fractures or dislocations.? Visualized superior ribs are intact.? ? There is mild disc space narrowing at C5-C6, with moderate disc space narrowing at C6-C7. ?Endplate irregularity and sclerosis are seen, which are worst at C6-C7. ? Soft tissues:? Prevertebral soft tissues are normal in thickness.? No paravertebral hematomas.? No apical pneumothoraces.? Atherosclerotic calcification is noted.? ? ? IMPRESSION:? Negative for fracture. ? Cervical spine degenerative changes are seen, which are worst at C6-C7. ? ? ? Dictated by: Eh Najera M.D. on 11/08/2021 at 14:44 ? ? MDM Narrative Medical decision making narrative: 81-year-old woman who was found on the floor with a small laceration number of her brow. She does not remember how she fell or how she ended up on the floor. She currently has absolutely no complaints and continues to repeat that she is fine. She is not lightheaded when she sits up. Lab work does not suggest acute abnormalities, renal failure, infection, lack to light abnormalities. CT scan of the head and cervical spine reassuring. The 1.5 cm laceration above her brow was closed with skin glue and Steri-Strips. Her group facility will be contacted and she will be safe for discharge home. Discharge Plan Departure Patient Disposition: Home Clinical Impression: Laceration of brow without complication Qualifiers: Encounter type: initial encounter Qualified Code(s): S01.81XA - Laceration without foreign body of other part of head, initial encounter Fall Qualifiers: Encounter type: initial encounter Qualified Code(s): W19.XXXA - Unspecified fall, initial encounter Instructions: DI for Laceration Repair-Skin Glue Activity Restrictions/Additional Instructions: Thank you for coming in today There is no bleeding inside her brain, you did not break your neck, there are no other bony injuries and I am not finding any evidence of infection or other blood work abnormalities. The laceration number of your left eyebrow was repaired with skin glue and Steri-Strips. Please try to leave the Steri-Strips on for at least a week if you are able to. You can wash her face tomorrow simply use water and pat the wound dry without rubbing off the Steri-Strips for the skin glue. If you find that you are getting worse or develop any new symptoms, please feel free to return to the emergency department for further evaluation. Prescriptions: No Action ciprofloxacin HCl [Cipro] 500 mg tablet 500 mg PO BID Qty: 14 0RF Referrals: Nadia Casanova MD [Primary Care Provider] -
[2021-11-08 17:12] VITALS: PULSE 82; RESP 24
[2021-11-08 17:15] VITALS: BP 158/68; PULSE 81; RESP 25
[2021-11-08 17:30] VITALS: BP 162/73; PULSE 75; RESP 15
--- NOTE | 2021-11-08 17:43 | PC.NURSE ---
[facility] requesting for patient to come home via taxi. They will meet patient at home and pay for taxi.
== END 2021-11-08 17:53 | disposition home or self-care (01) ==
PROVIDERS: Emergency Provider Emergency Medicine; PCP Student in an Organized Health Care Education/Training Program
DX: S01.112A Laceration without foreign body of left eyelid and periocular area, initial encounter (principal); R55 Syncope and collapse; W18.30XA Fall on same level, unspecified, initial encounter; F03.90 Unspecified dementia, unspecified severity, without behavioral disturbance, psychotic disturbance, mood disturbance, and anxiety
CPT/HCPCS: 12011; 36415; 70450; 71045; 72125; 80053; 82550; 83690; 83735; 84484; 85025; 99284

== ENCOUNTER 2021-11-11 11:13 | Emergency (ER) | payer MEDICARE, SELFPAY ==
[2021-11-11 11:16] VITALS: BP 187/77; PULSE 73; RESP 16; TEMP 36.6; O2SAT 99; BMI 18.1
[2021-11-11 11:21] VITALS: PULSE 70; O2SAT 99
[2021-11-11 11:30] VITALS: BP 160/71; PULSE 72; O2SAT 99
[2021-11-11 12:00] VITALS: BP 168/98; PULSE 71; O2SAT 99
--- NOTE | 2021-11-11 12:02 | ED_ITS ---
HPI - Fall <John Perez PA-C - Last Filed: 11/11/21 12:31> General Chief Complaint: Fall Stated Complaint: Fall, reopened LAC on eyebrow Time Seen by Provider: 11/11/21 11:55 History of Present Illness HPI Narrative: This is an 81-year-old female presenting to the emergency department due to a left eyebrow laceration opening back up after having irrigated at her living facility. Patient was here 3 days ago due to a fall where she received a CT scan of her head and neck which showed no acute abnormalities as well as the laceration which was closed using Steri-Strips and Dermabond. Patient does not describe having any symptoms including nausea, vomiting, lightheadedness, fevers, or any other concerning signs or symptoms. Sole complaint is the reopening of the left eyebrow laceration. Related Data Previous Rx's Medication Instructions Recorded ciprofloxacin HCl 500 mg tablet 500 mg PO BID #14 tabs 09/29/21 (Cipro) Allergies Allergy/AdvReac Type Severity Reaction Status Date / Time Sulfa (Sulfonamide Allergy Hives Verified 08/30/21 12:04 Antibiotics) Review of Systems <John Perez PA-C - Last Filed: 11/11/21 12:31> Review of Systems Narrative: GENERAL: Denies chills, fatigue, malaise, fever, sweats. HEENT: Denies sinus pain, ear pain, sore throat, difficulty swallowing, dizziness. RESPIRATORY: Denies dyspnea, cough, wheezing, hemoptysis, sputum. CARDIOVASCULAR: Denies chest pain, palpitations, orthopnea, edema, GASTROINTESTINAL: Denies nausea, vomiting, abdominal pain, diarrhea, constipation, melena. : Denies dysuria, frequency, incontinence, hematuria, urinary retention. MUSCULOSKELETAL: denies weakness, joint pain, or bony pain SKIN: Left eyebrow laceration NEUROLOGIC: Denies weakness, headache, numbness, change in speech, confusion, seizures, incoordination. PSYCHIATRIC: No concerning psychosocial issues. 12 point review of systems is negative except for those stated above Patient History <John Perez PA-C - Last Filed: 11/11/21 12:31> Medical History Dementia Social History Smoking Status: Never smoker Smoking Status: Never smoker alcohol intake frequency: 0-2 drinks per day Alcohol type: wine Substance Use Type: does not use Exam <John Perez PA-C - Last Filed: 11/11/21 12:31> Narrative Exam Narrative: GENERAL: Well-developed patient, in mild distress. HEAD: Atraumatic. Normocephalic. EYES: Pupils equal round and reactive. Extraocular motions intact. No scleral icterus. No injection or drainage. ENT: Nose without bleeding, purulent drainage. Throat without erythema, tonsillar hypertrophy or exudate. Airway patent. NECK: Trachea midline. Non tender CARDIOVASCULAR: Regular rate and rhythm without murmurs, gallops, or rubs. RESPIRATORY: Clear to auscultation. Breath sounds equal bilaterally. No wheezes, rales, or rhonchi. GASTROINTESTINAL: Abdomen soft, non-tender, nondistended. EXTREMITIES: No edema or joint tenderness. BACK: Nontender without deformity or crepitance. No flank tenderness. NEURO: AOx3. SKIN: Approximately 3.5 cm laceration to the left eyebrow with minimal oozing blood. No surrounding erythema or purulent discharge. Initial Vital Signs Initial Vital Signs: Vital Signs Temperature 97.8 F 11/11/21 11:16 Pulse Rate 73 11/11/21 11:16 Respiratory Rate 16 11/11/21 11:16 Blood Pressure 187/77 H 11/11/21 11:16 Pulse Oximetry 99 11/11/21 11:16 Oxygen Delivery Method 11/11/21 11:16 <Michael Posada MD - Last Filed: 11/24/21 22:22> Initial Vital Signs Initial Vital Signs: Vital Signs Temperature 97.8 F 11/11/21 11:16 Pulse Rate 73 11/11/21 11:16 Respiratory Rate 16 11/11/21 11:16 Blood Pressure 187/77 H 11/11/21 11:16 Pulse Oximetry 99 11/11/21 11:16 Oxygen Delivery Method 11/11/21 11:16 Procedures <John Perez PA-C - Last Filed: 11/11/21 12:31> Laceration Repair Laceration 1: Time of procedure: 12:12 Site: face Side (If applicable): left Size (cm): 3.5 Description: linear Depth: simple, single layer Local Anesthetic: lidocaine 2% Amount of anesthesia used (mL): 3 Pre-repair: irrigated extensively Skin layer closed with: nylon Skin layer suture size: 5-0 Number of sutures: 6 Technique: simple, interrupted Course <John Perez PA-C - Last Filed: 11/11/21 12:31> Vital Signs Vital signs: Vital Signs - 8 hr 11/11/21 11:16 11/11/21 11:21 11/11/21 11:30 Temperature 97.8 F Pulse Rate 73 70 Respiratory Rate 16 Blood Pressure 187/77 H 160/71 H Pulse Oximetry 99 99 Oxygen Delivery Method Room Air 11/11/21 11:30 11/11/21 12:00 11/11/21 12:00 Temperature Pulse Rate 72 71 Respiratory Rate Blood Pressure 168/98 H Pulse Oximetry 99 99 Oxygen Delivery Method Room Air Room Air <Michael Posada MD - Last Filed: 11/24/21 22:22> Vital Signs Vital signs: Vital Signs - 8 hr 11/11/21 11:16 11/11/21 11:21 11/11/21 11:30 Temperature 97.8 F Pulse Rate 73 70 Respiratory Rate 16 Blood Pressure 187/77 H 160/71 H Pulse Oximetry 99 99 Oxygen Delivery Method Room Air 11/11/21 11:30 11/11/21 12:00 11/11/21 12:00 Temperature Pulse Rate 72 71 Respiratory Rate Blood Pressure 168/98 H Pulse Oximetry 99 99 Oxygen Delivery Method Room Air Room Air MDM - Fall <John Perez PA-C - Last Filed: 11/11/21 12:31> MDM Narrative Medical decision making narrative: This is an 81-year-old female presents to the emergency department due to a opening of a laceration. She was originally seen 3 days ago where the laceration was closed using Dermabond and Steri-Strips but the wound has reportedly been repeatedly been opening up while being clean. Laceration was closed using 6 5-0 nylon without any complications. Patient did not describe any other symptoms such as lightheadedness, fevers, and states that she is not had any recent falls either that would necessitate any further imaging or lab work. Patient discharged with instructions to follow-up with her primary care provider for suture removal. Discharge Plan Departure Patient Disposition: Home Clinical Impression: Laceration of brow without complication Activity Restrictions/Additional Instructions: Thank you for coming to the [facility] Emergency Department today. I am glad that we are able to close the wound today. Please follow-up with your primary care provider in 7-10 days for suture removal. Please monitor for any signs of spreading redness, purulent discharge or drainage, or fevers. Please return to the emergency department where speak with your primary care provider for further evaluation of these symptoms develop. I hope you feel better soon. Prescriptions: No Action ciprofloxacin HCl [Cipro] 500 mg tablet 500 mg PO BID Qty: 14 0RF Referrals: Nadia Casanova MD [Primary Care Provider] - Visit Report Forms: Patient Portal/API <Michael Posada MD - Last Filed: 11/24/21 22:22> Cosign ED Attending Cosnavjotature Attestation: I was immediately available in the department for consultation. ?This documentation has been reviewed and I agree with assessment and plan. Supervised by Michael Posada MD
[2021-11-11] MEDS: LIDOCAINE 2% INJ SDV 5 ML (12:08)
--- NOTE | 2021-11-11 12:26 | PC.NURSE ---
Pt repeatedly asking where her son is, states he was following the ambulance. Called her son Lew, he states she gets confused about this often and he is not in route to the hospital, updated him on plan of care.
[2021-11-11 12:30] VITALS: BP 160/78; PULSE 75; O2SAT 98
--- NOTE | 2021-11-11 13:03 | PC.NURSE ---
Per son Lew, [facility] facilitates pt transfer home in the past. Spoke to [facility] and they state pt took taxi home last time and they wait outside to assist pt inside as pt does not have her walker present. Earliest [facility] could pick her up with their own transport is 1500, [facility] encouraged taxi and they are updated on pt ETA.
== END 2021-11-11 13:34 | disposition home or self-care (01) ==
PROVIDERS: Emergency Provider Physician Assistant Medical; PCP Student in an Organized Health Care Education/Training Program
DX: S01.112D Laceration without foreign body of left eyelid and periocular area, subsequent encounter (principal)
CPT/HCPCS: 12013; 99281; 99283

== ENCOUNTER 2021-12-11 00:06 | Emergency (ER) | payer MEDICARE, SELFPAY ==
[2021-12-11 00:09] VITALS: BP 173/69; PULSE 60; RESP 16; TEMP 36.1; O2SAT 99; BMI 15.5
[2021-12-11 01:00] VITALS: BP 123/60; PULSE 62; RESP 16; O2SAT 96
[2021-12-11 02:00] VITALS: BP 145/64; PULSE 59; RESP 16; O2SAT 95
--- NOTE | 2021-12-11 03:03 | DI.CT.S_ITS ---
PROCEDURE: CT CERVICAL SPINE WO CON INDICATIONS: fall TECHNIQUE: Noncontrast 3 mm thick sections acquired from the skull base to the T4 level. Sagittal and coronal reformats were then constructed. For radiation dose reduction, the following was used: automated exposure control, adjustment of mA and/or kV according to patient size. COMPARISON: [facility], CT, CT CERVICAL SPINE WO CON, 11/08/2021, 15:28. FINDINGS: Image quality: Excellent. Bones: No fractures or dislocations. Visualized superior ribs are intact. Disc space narrowing and facet hypertrophy noted in the mid cervical spine. Mild central stenosis. Soft tissues: Prevertebral soft tissues are normal in thickness. No paravertebral hematomas. No apical pneumothoraces. IMPRESSION: Mild degenerative disc disease and arthropathy without fracture or traumatic malalignment Approved by: Stephen Healy M.D. on 12/11/2021 at 7:50
--- NOTE | 2021-12-11 03:03 | DI.CT.S_ITS ---
PROCEDURE: CT HEAD/BRAIN WO CON INDICATIONS: fall TECHNIQUE: Noncontrast 4.5 mm thick angled axial sections acquired from the foramen magnum to the vertex, with coronal and sagittal reformats. For radiation dose reduction, the following was used: automated exposure control, adjustment of mA and/or kV according to patient size. COMPARISON: [facility], CT, CT HEAD/BRAIN WO CON, 11/08/2021, 15:28. FINDINGS: Image quality: Excellent. CSF spaces: Basal cisterns are patent. No extra-axial fluid collections. Ventricles are normal in size and shape. Brain: No midline shift. No intracranial masses or hemorrhage. Mijares-white matter interface is normal. Moderate cerebral and cerebellar volume loss with multifocal white matter chronic ischemic change noted. Atherosclerotic calcification noted associated with cavernous segments of both internal carotid arteries. Skull and face: Calvarium and visualized facial bones are intact, without suspicious lesions. Bilateral intraocular lens replacements noted. Sinuses: Mucosal thickening noted in the sphenoid sinus increased from the prior IMPRESSION: Atrophy and chronic ischemic change without acute hemorrhage or mass effect. Sphenoid mucosal sinus disease. Note: Final report is concordant with preliminary interpretation by [facility] Approved by: Stephen Healy M.D. on 12/11/2021 at 7:54
--- NOTE | 2021-12-11 03:33 | ED.FALL ---
HPI - Fall General Chief Complaint: Fall Stated Complaint: GLF, Unwitnessed No thinners. Lac Time Seen by Provider: 12/11/21 03:03 Source: EMS Mode of arrival: EMS Limitations: no limitations History of Present Illness HPI Narrative: This is a 81-year-old female with history of dementia with unwitnessed ground level fall, no blood thinners. Patient states she felt sort of dizzy. She does not recall exactly what happened. She is a small laceration in the back of her head. Patient has had frequent falls. She is alert, she can tell me her name. She does not have any other complaints she denies any pain elsewhere, no neck or back pain, no chest pain or shortness of breath, she is able to move all her extremities for me without issue and denies any numbness, tingling or weakness. Related Data Previous Rx's Medication Instructions Recorded ciprofloxacin HCl 500 mg tablet 500 mg PO BID #14 tabs 09/29/21 (Cipro) Allergies Allergy/AdvReac Type Severity Reaction Status Date / Time Sulfa (Sulfonamide Allergy Hives Verified 08/30/21 12:04 Antibiotics) Review of Systems Review of Systems ROS Unobtainable: All systems reviewed & are unremarkable except as noted in HPI and below Patient History Medical History Dementia Social History Smoking Status: Never smoker Smoking Status: Never smoker alcohol intake frequency: 0-2 drinks per day Alcohol type: wine Substance Use Type: does not use Exam Narrative Exam Narrative: GEN: Patient appears in [id number] distress. HEAD: Patient has a 1.5 cm laceration on the left parietal scalp gape slightly no active bleeding, no raccoon/Santillan sign. NECK: Nontender, painless range of motion, trachea midline Positive for Nexus criteria, midline line tenderness, distracting injury, altered mental status although at baseline per report, neuro deficit, recent EtOH. EYES: PERRLA, EOMI ENT: External inspection normal, trachea is midline, TM's are normal no hemotypanum, Nares are clear, no septal hematoma, no dental or oral injury, airway is normal and with normal occlusion, No bony tenderness RESP: Chest is nontender and has symmetric movement, no ecchymosis, breath sounds are normal no crackles, wheezes or rales CVS: Heart sounds are normal, no murmur noted, No JVD. ABG/GI: Nontender, soft, normal bowel sounds, no distention, no organomegaly, pelvic rock is negative NEURO: Oriented AOx3, neuro is grossly intact, sensation and motor is normal all 4 extremities moving, cranial nerves II through XII are intact, GCS is 14 PSYCH: Normal mood and affect SKIN: Intact, warm and dry, no crepitus and without decubitus BACK: No CVA tenderness, no vertebral tenderness, no step-off's, no crepitus EXT: Atraumatic, hips are nontender, no pedal edema, normal color and temperature, normal range of motion of extremities with normal tendon exam, 2+ pulses in all four extremities Initial Vital Signs Initial Vital Signs: Vital Signs Temperature 96.9 F L 12/11/21 00:09 Pulse Rate 60 12/11/21 00:09 Respiratory Rate 16 12/11/21 00:09 Blood Pressure 173/69 H 12/11/21 00:09 Pulse Oximetry 99 12/11/21 00:09 Oxygen Delivery Method 12/11/21 00:09 Procedures Laceration Repair Laceration 1: Site: scalp Side (If applicable): left (Parietal) Size (cm): 2 Description: linear Depth: simple, single layer Local Anesthetic: other anesthetic (Prilocaine) Pre-repair: wound explored, irrigated extensively and deep structures intact Skin layer closed with: jenifer Number of sutures: 4 Course Orders Ordered: ED Orders 12/11/21 03:03 CT cervical spine wo con Stat CT head/brain wo con Stat Discontinued Medications Lidocaine/Prilocaine (Lidocaine/Prilocaine 5 Gm) 5 gm TOP NOW ONE Stop: 12/11/21 03:47 Last Admin: 12/11/21 03:49 Dose: 5 gm Documented By: RAD Vital Signs Vital signs: Vital Signs - 8 hr 12/11/21 00:09 12/11/21 01:00 12/11/21 02:00 Temperature 96.9 F L Pulse Rate 60 62 59 L Respiratory Rate 16 16 16 Blood Pressure 173/69 H 123/60 145/64 H Pulse Oximetry 99 96 95 Oxygen Delivery Method Room Air 12/11/21 04:00 12/11/21 05:30 Temperature Pulse Rate 64 71 Respiratory Rate 16 16 Blood Pressure 129/65 145/62 H Pulse Oximetry 97 97 Oxygen Delivery Method MDM - Fall Imaging Data CT scan - head: Radiologist's Impression: no acute process CT - cervical spine: Radiologist's Impression: no acute process MDM Narrative Medical decision making narrative: This is an 81-year-old female with unwitnessed ground level fall. She is a small laceration on her posterior scalp requiring repair. Head CT and C-spine were obtained as patient is not anticoagulated but based on age and her baseline dementia felt appropriate for imaging. Head CT and C-spine showed no acute changes. Laceration was closed. Patient's mentation been at baseline with no other obvious injuries on examination. Discharge Plan Departure Patient Disposition: Home Clinical Impression: Laceration of scalp, Fall from ground level Instructions: DI for Laceration Repair -- [place] Activity Restrictions/Additional Instructions: Please follow-up with your physician. Crowheart should removed in 7-10 days. There are 4 jenifer total. Wound Care: Keep wound(s) clean and dry. Wash daily with soap and water only. Do not use over the counter products (alcohol or peroxide)on the wounds unless instructed by a physician. If wound condition worsens (increased/expanding redness, developing fluid blisters, or worsening pain), either contact your doctor for an urgent re-assessment , or return to the Emergency Department. Return to the Emergency Department for any new or worsening symptoms. Return if fever greater than 100.4 Fahrenheit, increased swelling, increasing pain or worsening symptoms such as increased discharge or spreading redness. Sudden changes to mentation, severe headaches, new neck or back pain, persistent vomiting, inability to move extremities appropriately or other new or concerning changes. Prescriptions: No Action ciprofloxacin HCl [Cipro] 500 mg tablet 500 mg PO BID Qty: 14 0RF Referrals: Nadia Casanova MD [Primary Care Provider] - Visit Report Forms: Patient Portal/API
[2021-12-11] MEDS: LIDOCAINE/PRILOCAINE 5 GM TOP (03:49)
[2021-12-11 04:00] VITALS: BP 129/65; PULSE 64; RESP 16; O2SAT 97
[2021-12-11 05:30] VITALS: BP 145/62; PULSE 71; RESP 16; O2SAT 97
== END 2021-12-11 06:12 | disposition home or self-care (01) ==
PROVIDERS: Emergency Provider Emergency Medicine; PCP Student in an Organized Health Care Education/Training Program
DX: S01.01XA Laceration without foreign body of scalp, initial encounter (principal); W18.30XA Fall on same level, unspecified, initial encounter; F03.90 Unspecified dementia, unspecified severity, without behavioral disturbance, psychotic disturbance, mood disturbance, and anxiety
CPT/HCPCS: 12002; 70450; 72125; 99282; 99284

== ENCOUNTER 2021-12-22 17:14 | Emergency (ER) | payer MEDICARE, SELFPAY ==
[2021-12-22 17:24] VITALS: BP 184/80; PULSE 74; RESP 18; TEMP 36.6; O2SAT 97
--- NOTE | 2021-12-22 17:24 | ED.FALL ---
HPI - Fall <ARELY Escudero - Last Filed: 12/22/21 18:47> General Chief Complaint: Fall Stated Complaint: GLF Time Seen by Provider: 12/22/21 17:17 History of Present Illness HPI Narrative: This is an 81-year-old female who presents from an assisted living facility with a mechanical fall onto her left side for unknown reason, she states that she tripped. Patient has a history of dementia, she is not on anticoagulants, she was brought in by EMS and her son is on the way to pick her up and take her home. She denies pain to any other part of her body, did not hit her head, did not have nausea vomiting or neck pain. She endorses having some elbow pain when it is touched but has full flexion and extension intact without deficit. She has a skin tear verses laceration approximately 2 cm, this was bandage up with gauze and Coban from the EMS department. Patient states that she would like some Tylenol for her pain, states that her tetanus she thinks is within the last 10 years. She denies urinary symptoms although we will check her urine prior to her discharge home as she has a history of UTIs. She states that she is allergic to sulfa. Most recent urine culture was from 09/29/2021 which grew out E coli and E coli 2. With lopes sensitivity to all antibiotics except levofloxacin. Patient denies nausea, vomiting or recent illness. Related Data Previous Rx's Medication Instructions Recorded ciprofloxacin HCl 500 mg tablet 500 mg PO BID #14 tabs 09/29/21 (Cipro) Allergies Allergy/AdvReac Type Severity Reaction Status Date / Time Sulfa (Sulfonamide Allergy Hives Verified 08/30/21 12:04 Antibiotics) Review of Systems <ARELY Escudero - Last Filed: 12/22/21 18:47> Review of Systems Narrative: Review of systems is negative for acute abnormalities unless otherwise noted in HPI Patient History <ARELY Escudero - Last Filed: 12/22/21 18:47> Medical History Dementia Social History Smoking Status: Never smoker Smoking Status: Never smoker alcohol intake frequency: 0-2 drinks per day Alcohol type: wine Substance Use Type: does not use Exam <ARELY Escudero - Last Filed: 12/22/21 18:47> Narrative Exam Narrative: Reviewed vitals signs and nursing notes. General: cooperative, comfortable, in no acute distress, well groomed HEENT: symmetrical facial expressions, moist mucous membranes Cardiovascular: regular rate and rhythm, no peripheral edema, warm extremities Respiratory: normal effort, able to speak in complete sentences, without wheezing, stridor, or abnormal breath sounds. No retractions or tachypnea. MSK: moves all extremities, neurovascularly intact, no weakness, normal tone, patient able to fully extend and flex her left elbow without deficit, complains of pain with palpation, no crepitus, without shoulder or wrist pain. Laceration has gauze and a pressure dressing on and no current bleeding. Skin: brisk capillary refill, without pallor or erythema, laceration versus skin tear to the left elbow, fully through dermal layer, will irrigate and complete wound closure with sutures. Neuro: normal speech and cognition, A&O x3, ambulatory, clear speech Psych: mental status is grossly normal, congruent mood, normal affect, pleasant and cooperative Initial Vital Signs Initial Vital Signs: Vital Signs Temperature 97.9 F 12/22/21 17:24 Pulse Rate 74 12/22/21 17:24 Respiratory Rate 18 12/22/21 17:24 Blood Pressure 184/80 H 12/22/21 17:24 Pulse Oximetry 97 12/22/21 17:24 Oxygen Delivery Method 12/22/21 17:24 <Masoud Christianson DO - Last Filed: 12/26/21 07:20> Initial Vital Signs Initial Vital Signs: Vital Signs Temperature 97.9 F 12/22/21 17:24 Pulse Rate 74 12/22/21 17:24 Respiratory Rate 18 12/22/21 17:24 Blood Pressure 184/80 H 12/22/21 17:24 Pulse Oximetry 97 12/22/21 17:24 Oxygen Delivery Method 12/22/21 17:24 Procedures <ARELY Escudero - Last Filed: 12/22/21 18:47> Laceration Repair Laceration 1: Site: upper extremity (left elbow) Side (If applicable): left Size (cm): 2 Description: linear and flap Depth: simple, single layer Local Anesthetic: lidocaine 1% Pre-repair: wound explored and irrigated extensively Skin layer closed with: nylon Skin layer suture size: 5-0 Number of sutures: 6 Technique: simple, interrupted and horizontal mattress Course <ARELY Escudero - Last Filed: 12/22/21 18:47> Orders Ordered: Discontinued Medications Acetaminophen (Acetaminophen 325 Mg Tablet) 650 mg PO NOW ONE Stop: 12/22/21 17:22 Last Admin: 12/22/21 17:57 Dose: 650 mg Documented By: NR Bacitracin (Bacitracin Oint 0.9 Gm Pckt) 1 applic TOP NOW ONE Stop: 12/22/21 17:24 Last Admin: 12/22/21 17:57 Dose: 1 applic Documented By: NR Lidocaine HCl (Lidocaine 2% Inj Mdv 20ml) 20 ml INJ INTRA-OP ONE Stop: 12/22/21 17:22 Lidocaine/Prilocaine (Lidocaine/Prilocaine 30 Gm) 1 applic TOP NOW ONE Stop: 12/22/21 17:22 Last Admin: 12/22/21 17:57 Dose: 1 applic Documented By: NR Vital Signs Vital signs: Vital Signs - 8 hr 12/22/21 17:24 Temperature 97.9 F Pulse Rate 74 Respiratory Rate 18 Blood Pressure 184/80 H Pulse Oximetry 97 Oxygen Delivery Method Room Air <Masoud Christianson DO - Last Filed: 12/26/21 07:20> Orders Ordered: Discontinued Medications Acetaminophen (Acetaminophen 325 Mg Tablet) 650 mg PO NOW ONE Stop: 12/22/21 17:22 Last Admin: 12/22/21 17:57 Dose: 650 mg Documented By: NR Bacitracin (Bacitracin Oint 0.9 Gm Pckt) 1 applic TOP NOW ONE Stop: 12/22/21 17:24 Last Admin: 12/22/21 17:57 Dose: 1 applic Documented By: NR Lidocaine HCl (Lidocaine 2% Inj Mdv 20ml) 20 ml INJ INTRA-OP ONE Stop: 12/22/21 17:22 Lidocaine/Prilocaine (Lidocaine/Prilocaine 30 Gm) 1 applic TOP NOW ONE Stop: 12/22/21 17:22 Last Admin: 12/22/21 17:57 Dose: 1 applic Documented By: NR Vital Signs Vital signs: Vital Signs - 8 hr 12/22/21 17:24 Temperature 97.9 F Pulse Rate 74 Respiratory Rate 18 Blood Pressure 184/80 H Pulse Oximetry 97 Oxygen Delivery Method Room Air MDM - Fall <Lashawn IglesiasARELY - Last Filed: 12/22/21 18:47> Lab Data Labs: Lab Results 12/22/21 12/22/21 Range/Units 17:45 17:45 Ur Bilirubin Confirm Negative (Negative) Urine RBC 1-5/hpf (0-5/HPF) Urine WBC 1-5/hpf (0-5/HPF) Ur Squamous Epith Cells 1-5 /hpf (0-5/HPF) Urine Bacteria None seen (None) Urine Mucus 1+ H (Negative) Ur Culture Indicated? Cult not indicated Urine Dip Bedside Urine Glucose Negative Bedside Urine Bilirubin + 1 Bedside Urine Ketone - Negative Urine Specific [place] 1.030 Bedside Urine Occult Blood +/- Bedside Urine pH 6.0 Bedside Urine Protein + 30 Bedside Urine Urobilinogen - Negative Bedside Urine Nitrite - Negative Bedside Urine Leukocytes - Negative Esterase Imaging Data Extremity x-ray #1: Radiologist's Impression: PROCEDURE:? XR ELBOW LT 2V ? INDICATIONS:? fall to left elbow ? TECHNIQUE:? 2 views of the elbow were acquired.? ? COMPARISON:? None. ? FINDINGS:? ? Bones:? No definite fracture.? Alignment appears anatomic.? Degenerative changes of the elbow joint noted. ? Soft tissues:? No definite elbow joint effusion.? Moderate soft tissue swelling surrounding the left elbow but most pronounced posteriorly.? No radiopaque soft tissue foreign bodies.? No suspicious soft tissue calcifications.? ? ? IMPRESSION:? Left elbow without definite acute fracture or dislocation. Moderate soft tissue swelling of the left elbow.? Study slightly limited due to patient positioning.? Consider immobilization and repeat imaging in 10-14 days.? ? Dictated by: Alex Bermudez M.D. on 12/22/2021 at 18:41 ? ? Approved by: Alex Bermudez M.D. on 12/22/2021 at 18:43 ? [facility] Narrative Medical decision making narrative: This is an 79-year-old female presents to the emergency department after mechanical fall secondary to balance issues at her assisted-living home. She states that she did not hit her head, complains only of left elbow pain, she has a avulsion/laceration to the posterior of her left elbow, this was bandaged by EMS. She is able to fully extend and fully flex her left arm without deficit, she has a history of dementia but is quite intact and interactive and is a good historian. Her urine was checked for infection, it was negative for WBCs, bacteria, RBCs and leukocyte esterase. Suture repair was completed to her left elbow, she received 6 sutures, wound was thoroughly irrigated with normal saline without evidence of deep injury, tendon injury, or other complication. Patient's son was called to come and pick her up in the emergency department, x-rays negative for acute fracture and dislocation. <Masoud Christianson, DO - Last Filed: 12/26/21 07:20> Lab Data Labs: Lab Results 12/22/21 12/22/21 Range/Units 17:45 17:45 Ur Bilirubin Confirm Negative (Negative) Urine RBC 1-5/hpf (0-5/HPF) Urine WBC 1-5/hpf (0-5/HPF) Ur Squamous Epith Cells 1-5 /hpf (0-5/HPF) Urine Bacteria None seen (None) Urine Mucus 1+ H (Negative) Ur Culture Indicated? Cult not indicated Urine Dip Bedside Urine Glucose Negative Bedside Urine Bilirubin + 1 Bedside Urine Ketone - Negative Urine Specific [place] 1.030 Bedside Urine Occult Blood +/- Bedside Urine pH 6.0 Bedside Urine Protein + 30 Bedside Urine Urobilinogen - Negative Bedside Urine Nitrite - Negative Bedside Urine Leukocytes - Negative Esterase Discharge Plan Departure Patient Disposition: Home Clinical Impression: Fall Qualifiers: Encounter type: initial encounter Qualified Code(s): W19.XXXA - Unspecified fall, initial encounter Laceration of elbow Qualifiers: Encounter type: initial encounter Laterality: left Qualified Code(s): S51.012A - Laceration without foreign body of left elbow, initial encounter Contusion Qualifiers: Encounter type: initial encounter Contusion area: forearm Laterality: left Qualified Code(s): S50.12XA - Contusion of left forearm, initial encounter Instructions: Contusion, Laceration Repair, How to Prevent Falls Activity Restrictions/Additional Instructions: *You have been diagnosed with a fall, left elbow injury without fracture and a laceration approximately 2 cm with [address] Please have these removed in 7 days, at your care facility, please have your wound dressing changed 2 times per day, gently cleanse with water or normal feeling, and covered with bacitracin with a bandage. Please ask them to please help you with your bandage since you can not see this area. If you are unable to have wound care there, please have the wound care staff call and we will place a referral. You can have your sutures removed in 7 days, please ice this for 20 minutes on 3 times a day for as long as it is sore. You can take Tylenol 650 mg every 6 hours as needed for pain. I hope you feel better soon, thank you for coming in, it was a pleasure to meet you today. *What to do: *Please continue to take your regular medications as directed. [ ] New medication prescriptions sent to your pharmacy: [ ] [ ] New medication written as a paper prescription [ x] No new medications given *Please follow up with your primary care provider in 2-3 days, call for an appointment. Let them know you were seen in the Emergency Department and that we asked that you be seen for follow-up. We will electronically transmit a record of today's note if your PCP is in our system *If you do not have a primary care provider please contact [phone] to establish care with one of [facility] primary care providers. *Return to Emergency Department if you should have any new, worsening, or concerning symptoms, such as [fever greater than 101F, chills, worsening pain, persistent vomiting or other bothersome symptoms]. Prescriptions: No Action ciprofloxacin HCl [Cipro] 500 mg tablet 500 mg PO BID Qty: 14 0RF Referrals: Nadia Casanova MD [Primary Care Provider] - Visit Report Forms: Patient Portal/API <Masoud Christianson DO - Last Filed: 12/26/21 07:20> [facility] ED Attending Lexisature Attestation: I was immediately available in the department for consultation. This documentation has been reviewed and I agree with assessment and plan. Supervised by Masoud Christianson DO
--- NOTE | 2021-12-22 17:27 | DI.RAD.S_ITS ---
PROCEDURE: XR ELBOW LT 2V INDICATIONS: fall to left elbow TECHNIQUE: 2 views of the elbow were acquired. COMPARISON: None. FINDINGS: Bones: No definite fracture. Alignment appears anatomic. Degenerative changes of the elbow joint noted. Soft tissues: No definite elbow joint effusion. Moderate soft tissue swelling surrounding the left elbow but most pronounced posteriorly. No radiopaque soft tissue foreign bodies. No suspicious soft tissue calcifications. IMPRESSION: Left elbow without definite acute fracture or dislocation. Moderate soft tissue swelling of the left elbow. Study slightly limited due to patient positioning. Consider immobilization and repeat imaging in 10-14 days. Dictated by: Alex Bermudez M.D. on 12/22/2021 at 18:41 Approved by: Alex Bermudez M.D. on 12/22/2021 at 18:43
[2021-12-22] MEDS: LIDOCAINE/PRILOCAINE 30 GM 1 APPLIC TOP (17:57)
[2021-12-22] MEDS: ACETAMINOPHEN 325 MG TABLET 650 MG PO (17:57)
[2021-12-22] MEDS: BACITRACIN OINT 0.9 GM PCKT 1 APPLIC TOP (17:57)
[2021-12-22 18:04] VITALS: PULSE 69; O2SAT 98
[2021-12-22 18:12] LABS: Ictotest Urine Negative (Negative)
[2021-12-22 18:19] LABS: Bacteria Urine None Seen; Culture Indicated Urine Cult Not Indicated; Mucus Urine 1+ (Negative); RBC Urine 1-5/HPF (0-5/HPF); Squamous Epithelial Cell Urine 1-5 /HPF (0-5/HPF); WBC Urine 1-5/HPF (0-5/HPF)
[2021-12-22 18:30] VITALS: PULSE 70; O2SAT 97
[2021-12-22 19:00] VITALS: PULSE 80; O2SAT 96
[2021-12-22 19:05] VITALS: BP 178/75; PULSE 77; O2SAT 96
== END 2021-12-22 19:15 | disposition home or self-care (01) ==
PROVIDERS: Emergency Provider Nurse Practitioner Critical Care Medicine; PCP Student in an Organized Health Care Education/Training Program
DX: S51.012A Laceration without foreign body of left elbow, initial encounter (principal); S50.12XA Contusion of left forearm, initial encounter; W19.XXXA Unspecified fall, initial encounter
CPT/HCPCS: 12001; 73070; 81003; 81015; 99283

== ENCOUNTER 2022-03-26 09:34 | Emergency (ER) | payer MEDICARE, SELFPAY ==
[2022-03-26 09:37] VITALS: BP 169/70; PULSE 71; O2SAT 97
[2022-03-26 09:38] VITALS: BP 169/79; PULSE 67; RESP 15; TEMP 36.5; O2SAT 99
--- NOTE | 2022-03-26 09:42 | ED.SKABFB ---
HPI - Skin/Abscess/Foreign Bdy General Chief complaint: Skin/Abscess/Foreign Body Stated complaint: Fall, Face LAC Time Seen by Provider: 03/26/22 09:37 Source: patient and EMS Mode of arrival: EMS Limitations: no limitations History of Present Illness HPI narrative: Patient 81-year-old female lives carrying an adult long term facility, history of dementia and supranuclear palsy, presents today after a fall. She was sitting on the toilet when she fell to the left side when she tried to stand up. She did not lose consciousness staff heard her and came in immediately. No nausea vomiting or weakness. She says she was feeling fine prior to her fall. She does have a history of dementia. According to chart review she was seen here in November for fall to the left side again in December for the same twice. She is not on any antiplatelet or anticoagulation medication. She does have a laceration left eyebrow. Related Data Home Medications Medication Instructions Recorded Confirmed acetaminophen 500 mg tablet 500 mg PO Q6HR PRN pain/ fever 03/26/22 03/26/22 alendronate 70 mg tablet 70 mg PO WEEKLY 03/26/22 03/26/22 ascorbic acid (vitamin C) 250 mg 250 mg PO QAM 03/26/22 03/26/22 tablet aspirin 81 mg tablet,delayed 81 mg PO QAM 03/26/22 03/26/22 release calcium carbonate 600 mg-vitamin 1 tab PO QAM 03/26/22 03/26/22 D3 10 mcg (400 unit) tablet carbidopa 25 mg-levodopa 100 mg 2 tab PO TID 03/26/22 03/26/22 tablet cyanocobalamin (vitamin B-12) 1,000 mcg PO QAM 03/26/22 03/26/22 1,000 mcg tablet ferrous gluconate 324 mg (38 mg 324 mg PO DAILY 03/26/22 03/26/22 iron) tablet metoprolol succinate 25 mg 25 mg PO QAM 03/26/22 03/26/22 tablet,extended release 24 hr multivitamin 1 tab PO QAM 03/26/22 03/26/22 sertraline 50 mg tablet 100 mg PO QAM 03/26/22 03/26/22 trazodone 100 mg tablet 100 mg PO BEDTIME 03/26/22 03/26/22 zolpidem 6.25 mg tablet,extended 6.25 mg PO BEDTIME PRN Insomnia 03/26/22 03/26/22 release,multiphase Allergies Allergy/AdvReac Type Severity Reaction Status Date / Time Sulfa (Sulfonamide Allergy Hives Verified 03/26/22 09:40 Antibiotics) Review of Systems Review of Systems ROS Unobtainable: All systems reviewed & are unremarkable except as noted in HPI and below Patient History Medical History Dementia Hypertension Iron deficiency Osteoporosis Parkinsons Progressive supranuclear palsy Social History Smoking Status: Never smoker Smoking Status: Never smoker alcohol intake frequency: 0-2 drinks per day Alcohol type: wine Substance Use Type: does not use Exam Initial Vital Signs Initial Vital Signs: Vital Signs Pulse Rate 71 03/26/22 09:37 Blood Pressure 169/70 H 03/26/22 09:37 Pulse Oximetry 97 03/26/22 09:37 GENERAL: Alert pleasantly confused 81-year-old female HEENT: Head atraumatic, laceration 2 cm left eyebrow good skin approximation, EMERY CARDIOVASCULAR: Regular rate and rhythm without murmurs, rubs or gallops. RESPIRATORY: Breath sounds equal bilaterally, no wheezes rales or rhonchi. ABDOMEN: Soft, nontender. Normoactive bowel sounds all 4 quadrants. No guarding or rebound. RECTAL: Hemoccult-positive, no hemorrhoids, nontender : No CVA tenderness EXTREMITIES: Normal range of motion, no clubbing or edema. 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 Procedures Laceration Repair Laceration 1: Site: face (eyebrow) Side (If applicable): left Size (cm): 2 Description: linear Depth: simple, single layer Local Anesthetic: lidocaine 1% Amount of anesthesia used (mL): 2 Pre-repair: wound explored Skin layer closed with: nylon Skin layer suture size: 5-0 Number of sutures: 2 Technique: simple, interrupted Course Orders Ordered: ED Orders 03/26/22 09:47 CT head/brain wo con Stat 03/26/22 10:39 CT cervical spine wo con Stat Vital Signs Vital signs: Vital Signs - 8 hr 03/26/22 09:38 03/26/22 09:37 03/26/22 09:37 Temperature 97.7 F Pulse Rate 67 71 Respiratory Rate 15 Blood Pressure 169/79 H 169/70 H Pulse Oximetry 99 97 Oxygen Delivery Method Room Air 03/26/22 10:00 03/26/22 11:15 Temperature Pulse Rate 66 66 Respiratory Rate 18 Blood Pressure 150/72 H Pulse Oximetry 99 97 Oxygen Delivery Method Room Air MDM - Skin/Abscess/Foreign Bdy Lab Data Labs: Urine Dip Bedside Urine Glucose Negative Bedside Urine Bilirubin - Negative Bedside Urine Ketone - Negative Urine Specific [place] 1.015 Bedside Urine Occult Blood - Negative Bedside Urine pH 6.5 Bedside Urine Protein - Negative Bedside Urine Urobilinogen - Negative Bedside Urine Nitrite - Negative Bedside Urine Leukocytes - Negative Esterase Imaging Data CT scan - head: Radiologist's Impression: [place] [id number] CT Scan Report Signed Patient: Philomena Stone MR#: [id number] : 1940 Acct:[id number] Age/Sex: 81 / F Date of Service: 03/26/22 Loc: ED Accession Number: [id number] ?? Procedure: CT head/brain wo con Ordering Provider: Nicolle Torres D.O. PROCEDURE:? CT HEAD/BRAIN WO CON ? INDICATIONS:? fall ? TECHNIQUE:? Noncontrast 4.5 mm thick angled axial sections acquired from the foramen magnum to the vertex, with coronal and sagittal reformats.? For radiation dose reduction, the following was used:? automated exposure control, adjustment of mA and/or kV according to patient size.? ? COMPARISON:? [facility], CT, CT CERVICAL SPINE WO CON, 03/26/2022, 10:18.? [facility], CT, CT HEAD/BRAIN WO CON, 11/08/2021, 15:28.? [facility], CT, CT HEAD/BRAIN WO CON, 12/11/2021, 3:08. ? FINDINGS:? Image quality:? Excellent.? ? CSF spaces:? Basal cisterns are patent.? No extra-axial fluid collections.? The ventricles are symmetric in size and shape.? ? Brain:? No intracranial bleeds or masses.? There is cerebral volume loss for age, with resultant ventricular and sulcal prominence.? There are periventricular and deep white matter chronic small vessel ischemic changes.? There is intracranial internal carotid artery atherosclerosis.? ? Skull and face:? Left lateral forehead/temporal region laceration can be seen, with hematoma and soft tissue gas.? No underlying calvarial fracture is seen.? Calvarium and visualized facial bones appear intact, without suspicious lesions.? ? Sinuses:? Visualized sinuses and mastoids are clear.? ? IMPRESSION:? Left lateral forehead/temporal region scalp hematoma and laceration, without an associated fracture. ? No acute intracranial hemorrhage is seen.? ? No acute intracranial process is seen.? ? ? Dictated by: Eh Najrea M.D. on 03/26/2022 at 9:55 ? ? Approved by: Eh Najera M.D. on 03/26/2022 at 9:57 ? [facility] Narrative Medical decision making narrative: Patient 81-year-old female history of dementia progressive supranuclear palsy frequent falls presents today after fall. She is a hard time with depth perception and visual changes. It sounds that was mechanical whenever she stood up and felt so left side. She frequently falls to the left side and cuts either her face or scalp. She is previously had a UTI today her urinalysis is negative. Head CT and CT cervical spine show any abnormality. Patient's laceration eyebrow was easily sutured. Previous ED records have been reviewed Discharge Plan Departure Patient Disposition: Home Clinical Impression: Fall, Laceration Activity Restrictions/Additional Instructions: *You have been diagnosed with fall with laceration *What to do: Have sutures removed in about 5-7 days. Put antibiotic ointment on it 1-2 times daily. May shower and bathe has scheduled. Urinalysis is negative today *Continue to take medications as directed Tylenol 650 mg every 4-6 hours if needed for pain *Follow up with your primary care provider in 2-3 days or call [phone] *Return to ER if you should have increasing confusion recurrent fall, redness swelling drainage or any new, worsening or concerning symptoms Prescriptions: No Action metoprolol succinate 25 mg tablet extended release 24 hr 25 mg PO QAM multivitamin Tablet 1 tab PO QAM alendronate 70 mg tablet 70 mg PO WEEKLY cyanocobalamin (vitamin B-12) 1,000 mcg tablet 1,000 mcg PO QAM aspirin 81 mg tablet,delayed release (DR/EC) 81 mg PO QAM acetaminophen 500 mg tablet 500 mg PO Q6HR PRN (Reason: pain/ fever) trazodone 100 mg tablet 100 mg PO BEDTIME ascorbic acid (vitamin C) 250 mg tablet 250 mg PO QAM carbidopa-levodopa 25-100 mg tablet 2 tab PO TID sertraline 50 mg tablet 100 mg PO QAM zolpidem 6.25 mg tablet,ext release multiphase 6.25 mg PO BEDTIME PRN (Reason: Insomnia) ferrous gluconate 324 mg (38 mg iron) tablet 324 mg PO DAILY calcium carbonate-vitamin D3 600 mg-10 mcg (400 unit) tablet 1 tab PO QAM Referrals: Nadia Casanova MD [Primary Care Provider] - Stand Alone Forms: Patient Portal/API
--- NOTE | 2022-03-26 09:47 | DI.CT.S_ITS ---
PROCEDURE: CT HEAD/BRAIN WO CON INDICATIONS: fall TECHNIQUE: Noncontrast 4.5 mm thick angled axial sections acquired from the foramen magnum to the vertex, with coronal and sagittal reformats. For radiation dose reduction, the following was used: automated exposure control, adjustment of mA and/or kV according to patient size. COMPARISON: [facility], CT, CT CERVICAL SPINE WO CON, 03/26/2022, 10:18. [facility], CT, CT HEAD/BRAIN WO CON, 11/08/2021, 15:28. [facility], CT, CT HEAD/BRAIN WO CON, 12/11/2021, 3:08. FINDINGS: Image quality: Excellent. CSF spaces: Basal cisterns are patent. No extra-axial fluid collections. The ventricles are symmetric in size and shape. Brain: No intracranial bleeds or masses. There is cerebral volume loss for age, with resultant ventricular and sulcal prominence. There are periventricular and deep white matter chronic small vessel ischemic changes. There is intracranial internal carotid artery atherosclerosis. Skull and face: Left lateral forehead/temporal region laceration can be seen, with hematoma and soft tissue gas. No underlying calvarial fracture is seen. Calvarium and visualized facial bones appear intact, without suspicious lesions. Sinuses: Visualized sinuses and mastoids are clear. IMPRESSION: Left lateral forehead/temporal region scalp hematoma and laceration, without an associated fracture. No acute intracranial hemorrhage is seen. No acute intracranial process is seen. Dictated by: Eh Najera M.D. on 03/26/2022 at 9:55 Approved by: Eh Najera M.D. on 03/26/2022 at 9:57
[2022-03-26 10:00] VITALS: PULSE 66; O2SAT 99
--- NOTE | 2022-03-26 10:39 | DI.CT.S_ITS ---
PROCEDURE: CT CERVICAL SPINE WO CON INDICATIONS: fall TECHNIQUE: Noncontrast 3 mm thick sections acquired from the skull base to the T4 level. Sagittal and coronal reformats were then constructed. For radiation dose reduction, the following was used: automated exposure control, adjustment of mA and/or kV according to patient size. COMPARISON: [facility], CT, CT HEAD/BRAIN WO CON, 11/08/2021, 15:28. [facility], CT, CT HEAD/BRAIN WO CON, 03/26/2022, 10:18. [facility], CT, CT CERVICAL SPINE WO CON, 11/08/2021, 15:28. [facility], CT, CT CERVICAL SPINE WO CON, 12/11/2021, 3:08. FINDINGS: Image quality: Excellent. Bones: No fractures or dislocations. Visualized superior ribs are intact. Mild disc space narrowing can be seen at C5-C6. At C6-C7, there is moderate to severe disc space narrowing, with associated endplate irregularity and sclerosis. Posteriorly projected endplate osteophytes are seen. Milder degenerative changes are seen elsewhere. Soft tissues: Prevertebral soft tissues are normal in thickness. No paravertebral hematomas. No apical pneumothoraces. Atherosclerotic calcification is noted. Dense soft tissue calcification can be seen posterior to the inferior spinous processes, as before. IMPRESSION: Negative for acute fracture. Cervical spine degenerative changes are seen, which are worst at C6-C7. Dictated by: Eh Najera M.D. on 03/26/2022 at 9:57 Approved by: Eh Najera M.D. on 03/26/2022 at 9:59
[2022-03-26 11:15] VITALS: BP 150/72; PULSE 66; RESP 18; O2SAT 97
== END 2022-03-26 11:49 | disposition home or self-care (01) ==
PROVIDERS: Emergency Provider Emergency Medicine; PCP Student in an Organized Health Care Education/Training Program
DX: S01.112A Laceration without foreign body of left eyelid and periocular area, initial encounter (principal); W18.12XA Fall from or off toilet with subsequent striking against object, initial encounter
CPT/HCPCS: 12011; 70450; 72125; 81003; 99283; 99284

== ENCOUNTER 2022-04-09 14:38 | Observation (INO) | payer MEDICARE, SELFPAY ==
[2022-04-09] VITALS (14 sets, daily range): BP systolic 151–179; BP diastolic 58–83; PULSE 72–81; RESP 16–18; TEMP 37.1–37.7; O2SAT 96–98; BMI 15.9
--- NOTE | 2022-04-09 14:43 | DI.RAD.S_ITS ---
PROCEDURE: XR HAND LT MIN 3V INDICATIONS: dislocation TECHNIQUE: 3 views of the hand(s) acquired. COMPARISON: None. FINDINGS: Bones: There is significant medial dislocation at the 5th PIP joint. Although osseous fracture overlap is present, there is suspected to be a distal metacarpal fracture. Nondisplaced irregularity is noted at the distal 4th metacarpal head seen only on one view. Severe 1st CMC arthritic narrowing is present. Soft tissues: No suspicious soft tissue calcifications. IMPRESSION: Medial dislocation at the 5th PIP joint with suspected distal 5th metacarpal fracture. Suspected nondisplaced 4th distal metacarpal fracture. Dictated by: Jenn Hinton M.D. on 04/09/2022 at 15:21 Approved by: Jenn Hinton M.D. on 04/09/2022 at 15:23
--- NOTE | 2022-04-09 14:43 | DI.CT.S_ITS ---
PROCEDURE: CT HEAD/BRAIN WO CON INDICATIONS: fall TECHNIQUE: Noncontrast 4.5 mm thick angled axial sections acquired from the foramen magnum to the vertex, with coronal and sagittal reformats. For radiation dose reduction, the following was used: automated exposure control, adjustment of mA and/or kV according to patient size. COMPARISON: [facility], CT, CT HEAD/BRAIN WO CON, 03/26/2022, 10:18. FINDINGS: Image quality: Excellent. CSF spaces: Basal cisterns are patent. No extra-axial fluid collections. Ventricles are normal in size and shape. Brain: No midline shift. No intracranial masses or hemorrhage. [place]-white matter interface is normal. Subcortical and periventricular white matter hypodensities are consistent with microvascular ischemic disease. Cerebral volume loss with resultant ventricular and sulcal prominence . Skull and face: Calvarium and visualized facial bones are intact, without suspicious lesions. Sinuses: Visualized sinuses and mastoids are clear. IMPRESSION: 1. No acute intracranial abnormality. 2. Cerebral volume loss and small vessel ischemic changes. Dictated by: Terence Howard M.D. on 04/09/2022 at 14:03 Approved by: Terence Howard M.D. on 04/09/2022 at 14:08
--- NOTE | 2022-04-09 14:43 | DI.RAD.S_ITS ---
PROCEDURE: XR CHEST 1V INDICATIONS: fall TECHNIQUE: One view of the chest was acquired. COMPARISON: [facility], CR, XR CHEST 1V, 11/08/2021, 15:26. FINDINGS: Surgical changes and devices: None. Lungs and pleura: Lungs are clear. No pleural effusions or pneumothorax. Mediastinum: Mediastinal contours appear normal. Heart size is normal. Bones and chest wall: Minimally displaced left lateral 4th and 5th rib fractures. IMPRESSION: Minimally displaced left lateral 4th and 5th rib fractures. Dictated by: Jenn Hinton M.D. on 04/09/2022 at 15:15 Approved by: Jenn Hinton M.D. on 04/09/2022 at 15:16
[2022-04-09 15:00] LABS: Add Manual Diff / Slide Review NO; Basophils Absolute Auto 200 /uL (0-100); Basophils Percent Auto 2.4 % (0-2); Eosinophils Absolute Auto 0 /uL (0-450); Eosinophils Percent Auto 0.6 % (2-4); Hematocrit 33.5 % (36-46); Hemoglobin 11.6 g/dL (12.0-16.0); Lymphocytes Absolute Auto 1200 /uL (1100-4500); Lymphocytes Percent Auto 15.4 % (25-40); Mean Corpuscular HGB Conc 34.5 % (30-36); Mean Corpuscular Volume 95.6 fL (80-100); Monocytes Absolute Auto 400 /uL (0-900); Monocytes Percent Auto 5.3 % (3-14); Neutrophils Absolute Auto 5800 /uL (1500-7000); Neutrophils Percent Auto 76.3 % (50-75); Platelet Count 438 X10^3/uL (150-400); Red Blood Cell Count 3.51 X10^6/uL (4.0-5.2); Red Cell Distribution Width 14.6 % (11.6-14.8); White Blood Cell Count 7.6 X10^3/uL (4.5-11.0)
[2022-04-09 15:09] LABS: Alanine Aminotransferase 13 IU/L (<35); Albumin Globulin Ratio 1.3 (1.0-2.8); Alkaline Phosphatase 77 U/L (38-126); Aspartate Aminotransferase 30 IU/L (14-36); BUN Creatinine Ratio 35.8 (6-22); Bilirubin Total 0.4 mg/dL (0.2-1.3); Blood Urea Nitrogen 19 mg/dL (7-17); Calcium 8.4 mg/dL (8.4-10.2); Carbon Dioxide 26 mmol/L (22-32); Chloride 105 mmol/L (98-107); Creatine Kinase 155 U/L (30-135); Estimated Glomerular Filt Rate > 60 mL/min (>60); Globulin 3.2 g/dL (1.7-4.1); Glucose 105 mg/dL (80-110); HEMOLYSIS < 15 (0-50); Potassium 3.9 mmol/L (3.4-5.1); Sodium 141 mmol/L (137-145); Total Protein 7.2 g/dL (6.3-8.2)
[2022-04-09 15:21] LABS: Troponin I < 0.012 ng/mL (0.01-0.034)
[2022-04-09 15:25] LABS: Creatine Kinase MB 3.09 ng/mL (<2.37)
[2022-04-09 15:26] LABS: Procalcitonin 0.05 ng/mL (<0.5)
--- NOTE | 2022-04-09 15:27 | ED_ITS ---
HPI - Fall General Chief Complaint: Fall Stated Complaint: fall? finger fx/dislocation? Time Seen by Provider: 04/09/22 14:43 Source: patient and EMS Mode of arrival: EMS History of Present Illness HPI Narrative: Patient is a 81-year-old female who has history of dementia resides at adult home facility history of dementia and supranuclear palsy with frequent falls presenting today after a fall. She somehow fell on a dresser she has an obvious left 5th pinky deformity and laceration. She does not complain of pain elsewhere. She has frequent falls. Not on anticoagulation. I last saw her for fall on March 26. She is actually been seeing a handful of times for falls always to the left probably secondary to her supranuclear palsy. Related Data Home Medications Medication Instructions Recorded Confirmed acetaminophen 500 mg tablet 500 mg PO Q6HR PRN pain/ fever 03/26/22 04/10/22 alendronate 70 mg tablet 70 mg PO WEEKLY 03/26/22 04/10/22 ascorbic acid (vitamin C) 250 mg 250 mg PO QAM 03/26/22 04/10/22 tablet aspirin 81 mg tablet,delayed 81 mg PO QAM 03/26/22 04/10/22 release calcium carbonate 600 mg-vitamin 1 tab PO QAM 03/26/22 04/10/22 D3 10 mcg (400 unit) tablet carbidopa 25 mg-levodopa 100 mg 2 tab PO TID 03/26/22 04/10/22 tablet cyanocobalamin (vitamin B-12) 1,000 mcg PO QAM 03/26/22 04/10/22 1,000 mcg tablet ferrous gluconate 324 mg (38 mg 324 mg PO DAILY 03/26/22 04/10/22 iron) tablet metoprolol succinate 25 mg 25 mg PO QAM 03/26/22 04/10/22 tablet,extended release 24 hr multivitamin 1 tab PO QAM 03/26/22 04/10/22 sertraline 50 mg tablet 100 mg PO QAM 03/26/22 04/10/22 trazodone 100 mg tablet 100 mg PO BEDTIME 03/26/22 04/10/22 zolpidem 6.25 mg tablet,extended 6.25 mg PO BEDTIME PRN Insomnia 03/26/22 04/10/22 release,multiphase Allergies Allergy/AdvReac Type Severity Reaction Status Date / Time Sulfa (Sulfonamide Allergy Hives Verified 03/26/22 09:40 Antibiotics) Review of Systems Review of Systems ROS Unobtainable: All systems reviewed & are unremarkable except as noted in HPI and below Patient History Medical History (Updated 04/10/22 @ 00:00 by ) Dementia Hypertension Iron deficiency Mild protein-calorie malnutrition (weight for age 75-89% of standard) Osteoporosis Parkinsons Progressive supranuclear palsy Social History household members: caregiver Smoking Status: Never smoker Smoking Status: Never smoker alcohol intake frequency: 0-2 drinks per day Alcohol type: wine Substance Use Type: does not use Exam Initial Vital Signs Initial Vital Signs: Vital Signs Blood Pressure 179/83 H 04/09/22 14:42 GENERAL: Alert week 81-year-old female HEENT: Head atraumatic,EOMI, pupils reactive, face symmetric, [moist] mucous membranes CARDIOVASCULAR: Regular rate and rhythm without murmurs, rubs or gallops. RESPIRATORY: Breath sounds equal bilaterally, no wheezes rales or rhonchi. No rib contusion no paradoxical movement ABDOMEN: Soft, nontender. Normoactive bowel sounds all 4 quadrants. No guarding or rebound. EXTREMITIES: Normal range of motion, no clubbing or edema. Neurovascularly int act Dislocated left 5th finger at MCP NEUROLOGICAL: Alert and oriented x2.Normal gait and speech. Moving all extremities SKIN: Laceration 2 cm before between 4th and 5th finger no bony exposure Procedures Laceration Repair Laceration 1: Size (cm): 2 Description: linear Depth: simple, single layer Local Anesthetic: lidocaine 1% Amount of anesthesia used (mL): 2 Pre-repair: wound explored, irrigated extensively and deep structures intact Skin layer closed with: nylon Skin layer suture size: 4-0 Number of sutures: 2 Technique: simple, interrupted Orthopedic Joint Reduction Joint #1: Side: left Joint Reduction Location: finger Analgesia: nerve block Local Anesthesia: lidocaine 1% Amount of anesthesic used (mL): 2 Technique used: traction/counter-traction and direct manipulation Post-reduction neuro exam: intact and no change Orthopedic Splinting/Casting Injury #1: Side: left Upper Extremity Injury Location: hand and finger Upper Extremity Immobilizer: ulnar gutter Course Orders Ordered: Acetaminophen (Acetaminophen 325 Mg Tablet) 650 mg PO Q6H PRN PRN Reason: Fever/Mild Pain (1-3) Last Admin: 04/10/22 03:26 Dose: 650 mg Documented By: BRIDGET Aspirin (Aspirin Ec 81 Mg Tablet) 81 mg PO DAILY [facility] Last Admin: 04/10/22 09:24 Dose: 81 mg Documented By: Admin: 04/10/22 02:57 Dose: Not Given Documented By: BRIDGET Carbidopa/Levodopa (Carbidopa-Levodopa 25/100 Tablet) 2 each PO TID [facility] Last Admin: 04/10/22 14:31 Dose: 2 each Documented By: Admin: 04/10/22 09:24 Dose: 2 each Documented By: SARAI Docusate Sodium (Docusate 100 Mg Capsule) 100 mg PO BID [facility] Last Admin: 04/10/22 09:24 Dose: 100 mg Documented By: Admin: 04/09/22 20:43 Dose: 100 mg Documented By: BRIDGET Enoxaparin Sodium (Enoxaparin 30 Mg/0.3 Ml Syringe) 30 mg SUBCUT DAILY [facility] Last Admin: 04/10/22 09:25 Dose: 30 mg Documented By: SARAI Ferrous Sulfate (Ferrous Sulfate 325 Mg Tablet) 325 mg PO DAILY [facility] Metoprolol Succinate (Metoprolol Er 25 Mg Tablet) 25 mg PO DAILY [facility] Last Admin: 04/10/22 09:24 Dose: 25 mg Documented By: Admin: 04/10/22 02:57 Dose: Not Given Documented By: BRIDGET Naloxone HCl (Naloxone 0.4 Mg/Ml Vial) 0.2 mg IV Q2MIN PRN PRN Reason: Opiate Reversal Sertraline HCl (Sertraline 50 Mg Tablet) 100 mg PO DAILY [facility] Last Admin: 04/10/22 09:24 Dose: 100 mg Documented By: Admin: 04/10/22 02:57 Dose: Not Given Documented By: BRIDGET Sodium Chloride (Sodium Chloride 0.9% Flush) 10 ml IV PRN PRN PRN Reason: Flush Sodium Chloride (Sodium Chloride 0.9% Flush) 10 ml IV BID [facility] Tramadol HCl (Tramadol 50 Mg Tablet) 50 mg PO QID PRN PRN Reason: Pain, Moderate (4-6) Last Admin: 04/10/22 03:27 Dose: 50 mg Documented By: Admin: 04/09/22 22:13 Dose: 50 mg Documented By: BRIDGET Discontinued Medications Hydrocodone Bitart/Acetaminophen (Hydrocodone/Acet 5/325 Tablet) 1 tab PO NOW ONE Stop: 04/09/22 20:30 Last Admin: 04/09/22 20:43 Dose: 1 tab Documented By: BRIDGET Enoxaparin Sodium (Enoxaparin 40 Mg/0.4 Ml Syringe) 40 mg SUBCUT DAILY [facility] Ceftriaxone Sodium 1,000 mg/ (Sodium Chloride) 100 mls @ 200 mls/hr IV NOW ONE Stop: 04/09/22 16:48 Last Infusion: 04/09/22 17:28 Dose: 0 mls/hr Documented By: Admin: 04/09/22 16:58 Dose: 200 mls/hr Documented By: GEE Sodium Chloride (Normal Saline 0.9%) 1,000 mls @ 100 mls/hr IV CONT [facility] Last Admin: 04/10/22 10:08 Dose: 100 mls/hr Documented By: Infusion: 04/10/22 10:08 Dose: 0 mls/hr Documented By: Infusion: 04/10/22 05:12 Dose: 0 mls/hr Documented By: Admin: 04/09/22 20:42 Dose: 100 mls/hr Documented By: BRIDGET Ceftriaxone Sodium 1,000 mg/ (Sodium Chloride) 100 mls @ 200 mls/hr IV Q24H [facility] Magnesium Chloride (Magnesium Chloride 64 Mg Tablet) 128 mg PO NOW ONE Stop: 04/10/22 14:21 Last Admin: 04/10/22 14:31 Dose: 128 mg Documented By: SARAI (Ferrous Gluconate 324 Mg (38 Mg Iron) Tablet) 324 mg PO DAILY [facility] Last Admin: 04/10/22 09:25 Dose: Not Given Documented By: SARAI Vital Signs Vital signs: Vital Signs - 8 hr 04/09/22 14:45 04/09/22 14:42 04/09/22 14:43 Temperature 100 F H Pulse Rate 79 Respiratory Rate 18 Blood Pressure 179/83 H 179/83 H 174/73 H Pulse Oximetry 98 Oxygen Delivery Method Room Air 04/09/22 14:43 04/09/22 15:13 04/09/22 15:14 Temperature Pulse Rate 75 72 73 Respiratory Rate Blood Pressure Pulse Oximetry 98 97 97 Oxygen Delivery Method 04/09/22 15:14 04/09/22 15:20 04/09/22 15:20 Temperature Pulse Rate 76 Respiratory Rate Blood Pressure 162/73 H 165/79 H Pulse Oximetry 96 Oxygen Delivery Method 04/09/22 16:16 Temperature Pulse Rate Respiratory Rate Blood Pressure Pulse Oximetry 97 Oxygen Delivery Method MDM - Fall Lab Data 04/10/22 05:30 04/10/22 05:30 Labs: Lab Results 04/09/22 04/09/22 04/09/22 Range/Units 14:52 14:52 14:52 WBC 7.6 (4.5-11.0) X10^3/uL RBC 3.51 L (4.0-5.2) X10^6/uL Hgb 11.6 L (12.0-16.0) g/dL Hct 33.5 L (36-46) % MCV 95.6 (80-100) fL MCH 33.0 (26-34) PG MCHC 34.5 (30-36) % RDW 14.6 (11.6-14.8) % Plt Count 438 H (150-400) X10^3/uL Neut % (Auto) 76.3 H (50-75) % Lymph % (Auto) 15.4 L (25-40) % [place] % (Auto) 5.3 (3-14) % Eos % (Auto) 0.6 L (2-4) % Baso % (Auto) 2.4 H (0-2) % Neut # (Auto) 5800 (9000-8350) /uL Lymph # (Auto) 1200 (7336-7768) /uL [place] # (Auto) 400 (0-900) /uL Eos # (Auto) 0 (0-450) /uL Baso # (Auto) 200 H (0-100) /uL Sodium 141 (137-145) mmol/L Potassium 3.9 (3.4-5.1) mmol/L Chloride 105 (98-107) mmol/L Carbon Dioxide 26 (22-32) mmol/L BUN 19 H (7-17) mg/dL Creatinine 0.53 (0.52-1.04) mg/dL Estimated GFR > 60 (>60) mL/min BUN/Creatinine Ratio 35.8 H (6-22) Glucose 105 (80-110) mg/dL Lactate 1.0 (0.7-2.1) mmol/L Calcium 8.4 (8.4-10.2) mg/dL Total Bilirubin 0.4 (0.2-1.3) mg/dL AST 30 (14-36) IU/L ALT 13 (<35) IU/L Alkaline Phosphatase 77 (38-126) U/L Total Creatine Kinase 155 H (30-135) U/L CK-MB (CK-2) 3.09 H (<2.37) ng/mL CK-MB (CK-2) Rel Index 2.0 (1.5-5.0) % Troponin I < 0.012 (0.01-0.034) ng/mL Total Protein 7.2 (6.3-8.2) g/dL Albumin 4.0 (3.5-5.0) g/dL Globulin 3.2 (1.7-4.1) g/dL Albumin/Globulin Ratio 1.3 (1.0-2.8) Procalcitonin (<0.5) ng/mL Urine Color Urine Appearance Urine pH (4.5-8.0) Ur Specific [place] (1.000-1.035) Urine Protein (Negative) Urine Glucose (UA) (Negative) g/dL Urine Ketones (NEGATIVE) Urine Occult Blood (Negative) Urine Nitrate (Negative) Urine Bilirubin (NEGATIVE) Urine Urobilinogen (0.2) E.U./dL Ur Leukocyte Esterase (NEGATIVE) Urine RBC (0-5/HPF) Urine WBC (0-5/HPF) Urine Bacteria (None) Urine Mucus (Negative) Ur Culture Indicated? SARS-CoV-2 (PCR) (Negative) 04/09/22 04/09/22 04/09/22 Range/Units 14:52 15:37 16:40 WBC (4.5-11.0) X10^3/uL RBC (4.0-5.2) X10^6/uL Hgb (12.0-16.0) g/dL Hct (36-46) % MCV (80-100) fL MCH (26-34) PG MCHC (30-36) % RDW (11.6-14.8) % Plt Count (150-400) X10^3/uL Neut % (Auto) (50-75) % Lymph % (Auto) (25-40) % [place] % (Auto) (3-14) % Eos % (Auto) (2-4) % Baso % (Auto) (0-2) % Neut # (Auto) (1650-4103) /uL Lymph # (Auto) (0091-1545) /uL [place] # (Auto) (0-900) /uL Eos # (Auto) (0-450) /uL Baso # (Auto) (0-100) /uL Sodium (137-145) mmol/L Potassium (3.4-5.1) mmol/L Chloride (98-107) mmol/L Carbon Dioxide (22-32) mmol/L BUN (7-17) mg/dL Creatinine (0.52-1.04) mg/dL Estimated GFR (>60) mL/min BUN/Creatinine Ratio (6-22) Glucose (80-110) mg/dL Lactate (0.7-2.1) mmol/L Calcium (8.4-10.2) mg/dL Total Bilirubin (0.2-1.3) mg/dL AST (14-36) IU/L ALT (<35) IU/L Alkaline Phosphatase (38-126) U/L Total Creatine Kinase (30-135) U/L CK-MB (CK-2) (<2.37) ng/mL CK-MB (CK-2) Rel Index (1.5-5.0) % Troponin I (0.01-0.034) ng/mL Total Protein (6.3-8.2) g/dL Albumin (3.5-5.0) g/dL Globulin (1.7-4.1) g/dL Albumin/Globulin Ratio (1.0-2.8) Procalcitonin 0.05 (<0.5) ng/mL Urine Color Yellow Urine Appearance Clear Urine pH 7.0 (4.5-8.0) Ur Specific [place] 1.020 (1.000-1.035) Urine Protein Negative (Negative) Urine Glucose (UA) Negative (Negative) g/dL Urine Ketones Trace H (NEGATIVE) Urine Occult Blood Negative (Negative) Urine Nitrate Negative (Negative) Urine Bilirubin Negative (NEGATIVE) Urine Urobilinogen 1.0 (0.2) E.U./dL Ur Leukocyte Esterase Trace H (NEGATIVE) Urine RBC 0-1/hpf (0-5/HPF) Urine WBC 5-10/hpf H (0-5/HPF) Urine Bacteria Occasional (0-1) (None) Urine Mucus 1+ H (Negative) Ur Culture Indicated? Specimen cultured SARS-CoV-2 (PCR) Negative (Negative) Urine Dip Bedside Urine Glucose Negative Bedside Urine Bilirubin - Negative Bedside Urine Ketone - Negative Urine Specific [place] 1.015 Bedside Urine Occult Blood - Negative Bedside Urine pH 7.0 Bedside Urine Protein +/- 15 Bedside Urine Urobilinogen - Negative Bedside Urine Nitrite - Negative Bedside Urine Leukocytes +/- 15 Esterase Imaging Data Chest x-ray: Radiologist's Impression: PROCEDURE:? XR CHEST 1V ? INDICATIONS:? fall ? TECHNIQUE:? One view of the chest was acquired.? ? COMPARISON:? [facility], , XR CHEST 1V, 11/08/2021, 15:26. ? FINDINGS:? ? Surgical changes and devices:? None.? ? Lungs and pleura:? Lungs are clear.? No pleural effusions or pneumothorax.? ? Mediastinum:? Mediastinal contours appear normal.? Heart size is normal.? ? Bones and chest wall:? Minimally displaced left lateral 4th and 5th rib fractures. ? IMPRESSION:? Minimally displaced left lateral 4th and 5th rib fractures. ? ? Dictated by: Jenn Hinton M.D. on 04/09/2022 at 15:15 ?? Extremity x-ray #1: Radiologist's Impression: PROCEDURE:? XR HAND LT MIN 3V ? INDICATIONS:? dislocation ? TECHNIQUE:? 3 views of the hand(s) acquired.? ? COMPARISON:? None. ? FINDINGS:? ? Bones:? There is significant medial dislocation at the 5th PIP joint.? Although osseous fracture overlap is present, there is suspected to be a distal metacarpal fracture.? Nondisplaced irregularity is noted at the distal 4th metacarpal head seen only on one view.? Severe 1st CMC arthritic narrowing is present. ? Soft tissues:? No suspicious soft tissue calcifications.? ? ? IMPRESSION:? ? Medial dislocation at the 5th PIP joint with suspected distal 5th metacarpal fracture. ? Suspected nondisplaced 4th distal metacarpal fracture. ? ? Dictated by: Jenn Hinton M.D. on 04/09/2022 at 15:21 ? ? Extremity x-ray #2: Radiologist's Impression: PROCEDURE:? XR HAND LT 2V ? INDICATIONS:? 5th finger post reduction ? TECHNIQUE:? 3 views of the hand(s) acquired.? ? COMPARISON:? [facility], CR, XR HAND LT MIN 3V, 04/09/2022, 14:53. ? FINDINGS:? ? Bones:? There is a fracture of the 4th and 5th metacarpal with unchanged positioning compared to earlier study.? Severe 1st carpometacarpal degenerative changes.? The interphalangeal joints have degenerative changes. ? Soft tissues:? No suspicious soft tissue calcifications.? ? ? IMPRESSION:? 1. Displaced and angulated fracture of the neck of the 5th metacarpal. 2. Mildly displaced fracture of the distal 4th metacarpal. ? Dictated by: Terence Howard M.D. on 04/09/2022 at 15:30 ? ? CT scan - head: Radiologist's Impression: PROCEDURE:? CT HEAD/BRAIN WO CON ? INDICATIONS:? fall ? TECHNIQUE:? Noncontrast 4.5 mm thick angled axial sections acquired from the foramen magnum to the vertex, with coronal and sagittal reformats.? For radiation dose reduction, the following was used:? automated exposure control, adjustment of mA and/or kV according to patient size.? ? COMPARISON:? [facility], CT, CT HEAD/BRAIN WO CON, 03/26/2022, 10:18. ? FINDINGS:? Image quality:? Excellent.? ? CSF spaces:? Basal cisterns are patent.? No extra-axial fluid collections.? Ventricles are normal in size and shape.? ? Brain:? No midline shift.? No intracranial masses or hemorrhage.? Mijares-white matter interface is normal. ? Subcortical and periventricular white matter hypodensit ies are consistent with microvascular ischemic disease.? Cerebral volume loss with resultant ventricular and sulcal prominence . Skull and face:? Calvarium and visualized facial bones are intact, without suspicious lesions.? ? Sinuses:? Visualized sinuses and mastoids are clear.? ? IMPRESSION:? 1. No acute intracranial abnormality. 2. Cerebral volume loss and small vessel ischemic changes.? Dictated by: Terence Howard M.D. on 04/09/2022 at 14:03 ? ? Approved by: Terence Howard M.D. on 04/09/2022 at 14:08 ? MDM Narrative Medical decision making narrative: Patient 81-year-old female who has some dementia supranuclear palsy presenting today after fall. She frequently falls. Today she has dislocated left little finger with laceration she is also found to have rib fractures 4th and 5th on the left. She is no leukocytosis no anemia no electrolyte abnormality no evidence of KALYANI troponin is negative. Laceration in left hand is easily sutured. Dislocation slightly more difficult she is fractured. No evidence of severe sepsis she is afebrile. I spoke with her son and a who does say that she falls however with UTIs she falls more frequently and is much more confused. In the emergency department she is be needed to be redirected frequently. She is given 1 dose of Rocephin in the ED. Pulled on left finger multiple times it is finally splinted with an ulnar gutter. She reports that it is feeling better. Dr. Knight accepts patient Discharge Plan Departure Patient Disposition: Admitted as Observation Clinical Impression: Acute UTI, Fracture of phalanx of little finger Admit Date/Time: 04/09/22 17:04 Admit Provider: Marian Vivas
--- NOTE | 2022-04-09 15:43 | DI.RAD.S_ITS ---
PROCEDURE: XR HAND LT 2V INDICATIONS: 5th finger post reduction TECHNIQUE: 3 views of the hand(s) acquired. COMPARISON: [facility], CR, XR HAND LT MIN 3V, 04/09/2022, 14:53. FINDINGS: Bones: There is a fracture of the 4th and 5th metacarpal with unchanged positioning compared to earlier study. Severe 1st carpometacarpal degenerative changes. The interphalangeal joints have degenerative changes. Soft tissues: No suspicious soft tissue calcifications. IMPRESSION: 1. Displaced and angulated fracture of the neck of the 5th metacarpal. 2. Mildly displaced fracture of the distal 4th metacarpal. Dictated by: Terence Howard M.D. on 04/09/2022 at 15:30 Approved by: Terence Howard M.D. on 04/09/2022 at 15:34
[2022-04-09 15:47] LABS: Appearance Urine UA CLEAR; Bilirubin Urine UA NEGATIVE (NEGATIVE); Color Urine UA YELLOW; Glucose Urine UA NEGATIVE (Negative); Ketones Urine UA TRACE (NEGATIVE); Leukocyte Esterase Urine UA TRACE (NEGATIVE); Nitrite Urine UA NEGATIVE (Negative); Occult Blood Urine UA NEGATIVE (Negative); Protein Urine UA NEGATIVE (Negative)
[2022-04-09 16:01] LABS: Bacteria Urine Occasional (0-1); RBC Urine 0-1/HPF (0-5/HPF); WBC Urine 5-10/HPF (0-5/HPF)
[2022-04-09 16:02] LABS: Culture Indicated Urine Specimen Cultured; Mucus Urine 1+ (Negative)
[2022-04-09] MEDS: cefTRIAXone 1,000 MG in SODIUM CHLORIDE 0.9% 100 ML 200 MG IV (16:58)
--- NOTE | 2022-04-09 17:09 | PC.NURSE ---
COWLMAN note: Spoke to son, Lew, because patient wanted him at BS. Lew has covid and can't come. Lew explained patient caregiver, Lanie Smith, lives at [facility]- which is a adult family home [place]. [facility] number: [phone]
[2022-04-09 17:17] LABS: COVID19 -Nasal RAPID Negative (Negative)
--- NOTE | 2022-04-09 18:24 | PC.NURSE ---
Spoke with son briefly to provide update and let him know she will be admitted to hospital for observation, Rm [id number]. Advised him to call in am for update.
--- NOTE | 2022-04-09 18:35 | PC.NURSE ---
Day shift: Pt in room from ED at approx 1835. Alert to self and c/o ribs hurting. VS WNL. RA 96%. Left hand and that left pinky finger are wrapped with IRWIN and brace in place. Bed alarm is on and call light in reach. She fell today and has Hx of falls. Brief in place and brief has urine in it. Pt up to [facility] with PCT Fawad at this time. She is also in view room. She was restless in ED and had a sitter for a couple hours per ED RN report. traffic signal mechanic Dianna [place]. High fall risk protocol in place.
--- NOTE | 2022-04-09 18:43 | PC.NURSE ---
Day shift: OOB to BSC and per PCT 2ppl assist with a gait belt.
[2022-04-09] MEDS: SODIUM CHLORIDE 0.9% 1,000 ML 100 ML IV (20:42)
[2022-04-09] MEDS: HYDROCODONE/ACET 5/325 TABLET 1 TAB PO (20:43)
[2022-04-09] MEDS: DOCUSATE 100 MG CAPSULE PO (20:43)
--- NOTE | 2022-04-09 21:26 | PM.HP.1 ---
History of Present Illness History of Present Illness Date Patient Seen: 04/09/22 Time Patient Seen: 21:15 Chief complaint: fall? finger fx/dislocation? Narrative: Philomena Laureanois a 81-year-old female resident of an adult family home with a history of dementia, hypertension and supranuclear palsy with frequent falls presented to the ED today after a fall.? She somehow fell on a dresser she has an obvious left 5th pinky deformity and laceration.? She does complain of upper left sided abdominal pain, nausea and vomiting.? She has frequent falls.? Not on anticoagulation.?She stated that staff where she lives do not respond to her requests for help to the bathroom, so she tries to ambulate unsupervised or unassisted. Chest xray done in the ED indicated minimally displaced left lateral 4th and 5th rib fractures. Xray of the left hand indicated medial dislocation at the 5th PIP joint with suspected distal 5th metacarpal fracture. Re-read of the left hand xray also identified a mildly displaced fracture of the distal 4th metacarpal. Today she was also found to have a urinary tract infection, prior microbiology grew out E.coli sensitive to ceftriaxone. She presented w/a fever of 100 and currently is 99.7. Blood pressure is 156/59 heart rate 80 respiratory rate 16 oxygen saturation 96% on room air she weighs 39.5 kg with a BMI of 15.9. She is mildly anemic with a hemoglobin and hematocrit of 11.6 and 33.5 she has a high platelet count of 438 chemistries unremarkable she does have elevated total CK of 155 and a CK-MB of 3.09 troponin is negative procalcitonin is negative she does have trace ketones in her urine presence of urine WBC and meets criteria for urine culture. COVID-19 PCR is negative Patient History Medical History Dementia Hypertension Iron deficiency Osteoporosis Parkinsons Progressive supranuclear palsy Family & Social History Social History: household members caregiver Prior Living Arrangements Skilled Nurse Facility Safety & Behavioral: Feels Safe in Current Yes Environment Been Physically Hurt or No Threatened By a Person Tobacco & Substance use: Smoking Status Never smoker alcohol intake frequency holiday/special occasion Substance Use Type does not use Meds Home Medications and Allergies Home Medications Medication Instructions Recorded Confirmed Type acetaminophen 500 mg tablet 500 mg PO Q6HR PRN pain/ fever 03/26/22 03/26/22 History alendronate 70 mg tablet 70 mg PO WEEKLY 03/26/22 03/26/22 History ascorbic acid (vitamin C) 250 mg 250 mg PO QAM 03/26/22 03/26/22 History tablet aspirin 81 mg tablet,delayed 81 mg PO QAM 03/26/22 03/26/22 History release calcium carbonate 600 mg-vitamin 1 tab PO QAM 03/26/22 03/26/22 History D3 10 mcg (400 unit) tablet carbidopa 25 mg-levodopa 100 mg 2 tab PO TID 03/26/22 03/26/22 History tablet cyanocobalamin (vitamin B-12) 1,000 mcg PO QAM 03/26/22 03/26/22 History 1,000 mcg tablet ferrous gluconate 324 mg (38 mg 324 mg PO DAILY 03/26/22 03/26/22 History iron) tablet metoprolol succinate 25 mg 25 mg PO QAM 03/26/22 03/26/22 History tablet,extended release 24 hr multivitamin 1 tab PO QAM 03/26/22 03/26/22 History sertraline 50 mg tablet 100 mg PO QAM 03/26/22 03/26/22 History trazodone 100 mg tablet 100 mg PO BEDTIME 03/26/22 03/26/22 History zolpidem 6.25 mg tablet,extended 6.25 mg PO BEDTIME PRN Insomnia 03/26/22 03/26/22 History release,multiphase Allergies Allergy/AdvReac Type Severity Reaction Status Date / Time Sulfa (Sulfonamide Allergy Hives Verified 03/26/22 09:40 Antibiotics) Review of Systems Review of Systems ROS: Yes All systems reviewed with the patient and are negative except as otherwise documented Exam Vital Signs (past 8 hours): - 04/09/22 14:45 04/09/22 14:42 04/09/22 14:43 Temperature 100 F H Pulse Rate 79 Respiratory Rate 18 Blood Pressure 179/83 H 179/83 H 174/73 H Pulse Oximetry 98 Oxygen Delivery Method Room Air 04/09/22 14:43 04/09/22 15:13 04/09/22 15:14 Temperature Pulse Rate 75 72 73 Respiratory Rate Blood Pressure Pulse Oximetry 98 97 97 Oxygen Delivery Method 04/09/22 15:14 04/09/22 15:20 04/09/22 15:20 Temperature Pulse Rate 76 Respiratory Rate Blood Pressure 162/73 H 165/79 H Pulse Oximetry 96 Oxygen Delivery Method 04/09/22 16:16 04/09/22 17:13 04/09/22 17:22 Temperature Pulse Rate 76 72 Respiratory Rate Blood Pressure Pulse Oximetry 97 98 96 Oxygen Delivery Method 04/09/22 17:22 04/09/22 17:30 04/09/22 18:00 Temperature Pulse Rate 79 81 Respiratory Rate 18 Blood Pressure 156/69 H Pulse Oximetry 97 97 Oxygen Delivery Method 04/09/22 18:23 04/09/22 19:38 Temperature 99.7 F H Pulse Rate 80 Respiratory Rate 16 Blood Pressure 156/59 H Pulse Oximetry 96 Oxygen Delivery Method Room Air Oxygen Delivery Method Room Air Narrative Exam Narrative: Gen: Alert, oriented, thin and frail-appearing 81 y.o. female, NAD HEENT: normocephalic, atraumatic, conjunctiva clear, sclera non-icteric, oral mucosa pink and moist Neck: supple, full ROM, no JVD, trachea is midline Resp: Lungs CTA, non-labored breathing CV: RRR, no murmur or rubs Abd: soft, non-tender, normoactive BTs Skin: no lesions or rashes, dry and intact Neuro: Pleasantly confused w/some word salad. Speech clear and coherent. Extremities: left hand in hard cast, no swelling in her fingers, moves all 4 extremities, is ambulatory, negative Rajeev?s sign Psyche: normal mood and affect. Objective Labs 04/09/22 14:52 04/09/22 14:52 Labs: Laboratory Results - last 24 hr 04/09/22 04/09/22 04/09/22 14:52 14:52 14:52 WBC 7.6 RBC 3.51 L Hgb 11.6 L Hct 33.5 L MCV 95.6 MCH 33.0 MCHC 34.5 RDW 14.6 Plt Count 438 H Neut % (Auto) 76.3 H Lymph % (Auto) 15.4 L [place] % (Auto) 5.3 Eos % (Auto) 0.6 L Baso % (Auto) 2.4 H Neut # (Auto) 5800 Lymph # (Auto) 1200 [place] # (Auto) 400 Eos # (Auto) 0 Baso # (Auto) 200 H Sodium 141 Potassium 3.9 Chloride 105 Carbon Dioxide 26 BUN 19 H Creatinine 0.53 Estimated GFR > 60 BUN/Creatinine Ratio 35.8 H Glucose 105 Lactate 1.0 Calcium 8.4 Total Bilirubin 0.4 AST 30 ALT 13 Alkaline Phosphatase 77 Total Creatine Kinase 155 H CK-MB (CK-2) 3.09 H CK-MB (CK-2) Rel Index 2.0 Troponin I < 0.012 Total Protein 7.2 Albumin 4.0 Globulin 3.2 Albumin/Globulin Ratio 1.3 Procalcitonin Urine Color Urine Appearance Urine pH Ur Specific [place] Urine Protein Urine Glucose (UA) Urine Ketones Urine Occult Blood Urine Nitrate Urine Bilirubin Urine Urobilinogen Ur Leukocyte Esterase Urine RBC Urine WBC Urine Bacteria Urine Mucus Ur Culture Indicated? SARS-CoV-2 (PCR) 04/09/22 04/09/22 04/09/22 14:52 15:37 16:40 WBC RBC Hgb Hct MCV MCH MCHC RDW Plt Count Neut % (Auto) Lymph % (Auto) [place] % (Auto) Eos % (Auto) Baso % (Auto) Neut # (Auto) Lymph # (Auto) [place] # (Auto) Eos # (Auto) Baso # (Auto) Sodium Potassium Chloride Carbon Dioxide BUN Creatinine Estimated GFR BUN/Creatinine Ratio Glucose Lactate Calcium Total Bilirubin AST ALT Alkaline Phosphatase Total Creatine Kinase CK-MB (CK-2) CK-MB (CK-2) Rel Index Troponin I Total Protein Albumin Globulin Albumin/Globulin Ratio Procalcitonin 0.05 Urine Color Yellow Urine Appearance Clear Urine pH 7.0 Ur Specific [place] 1.020 Urine Protein Negative Urine Glucose (UA) Negative Urine Ketones Trace H Urine Occult Blood Negative Urine Nitrate Negative Urine Bilirubin Negative Urine Urobilinogen 1.0 Ur Leukocyte Esterase Trace H Urine RBC 0-1/hpf Urine WBC 5-10/hpf H Urine Bacteria Occasional (0-1) Urine Mucus 1+ H Ur Culture Indicated? Specimen cultured SARS-CoV-2 (PCR) Negative Assessment & Plan Assessment & Plan narrative: Philomena Stone will be admitted to the inpatient service for further management and treatment of a urinary tract infection. UTI, acute and present on admission -She is ordered for IV ceftriaxone -Urine cx pending Frequent falls, acute and present on admission -She has fractures of the left 4th and 5fth ribs and distal 4th and 5th metacarpal fractures of the left hand -Pain control with tylenol and tramadol Protein calorie malnutrition, likely chronic -She has a BMI of just under 16 -Requested dietary consult to add protein drinks to her diet Supernuclear palsy, chronic -Likely contributing factor to patient's falls -continue home dose of carbadopa-levadopa 25/100, 2 tabs tid Dementia, chronic -She has been placed in a high visibility room for closer monitoring Other independent historians: None Discussion of results, plan of care with independent HCP/other: Day team hospitalist Reviewed outside records: ED notes, imaging studies VTE Prophylaxis: Wells risk score 0 Enoxaparin 40 mg subQ once daily Bilateral SCDs Patient is admitted to the inpatient service due to the severity of disease, risks of further disease progression and this stay is expected to exceed 2 midnights. FEN: IV fluids: NS at 100 ml/hour, diet: Heart healthy, labs: CBC, C/BMP, liver enzymes, Mag, PT/INR Consultants Dietary consult, care and involvement in the patient?s care is appreciated. Social determinants of health: Dementia, senior care Dispo: probable d/c to adult family home Code status: DNR as discussed with the patient who identifies her son as her surrogate and POA. She has an advanced directive on file that states she does not want DNR, but when asked she was very clear that she does not want rescusitation. Advanced care planning 10 minutes. [X] I have utilized all available immediate resources to obtain, update, or review of the patient's current medications VTE Deep Vein Thrombosis/Pulmonary Embolism Present on Admission: No MIPS - Admit I confirm the patient?s Advance Care Plan is present, Code status is documented, Surrogate decision maker is in patient?s record: Yes MIPS - DC The patient has current or prior documentation of left ventricular ejection fraction (LVEF) less than 40%, or moderate or severely depressed left ventricular systolic function.: No COVID-19 COVID-19 status: Negative Result date/Date tested (Pos, Neg/Pending): 04/09/22
[2022-04-09] MEDS: TRAMADOL 50 MG TABLET PO (22:13)
[2022-04-10] VITALS (10 sets, daily range): BP systolic 147–196; BP diastolic 62–96; PULSE 67–88; RESP 14–18; TEMP 36.9–37.2; O2SAT 94–97
[2022-04-10] MEDS: ACETAMINOPHEN 325 MG TABLET 650 MG PO ×2 (03:26→16:09)
[2022-04-10] MEDS: TRAMADOL 50 MG TABLET PO ×3 (03:27→20:50)
[2022-04-10 04:33] LABS: Add Manual Diff / Slide Review NO; Basophils Absolute Auto 0 /uL (0-100); Basophils Percent Auto 0.6 % (0-2); Eosinophils Absolute Auto 0 /uL (0-450); Eosinophils Percent Auto 0.7 % (2-4); Hematocrit 26.5 % (36-46); Lymphocytes Absolute Auto 1500 /uL (1100-4500); Lymphocytes Percent Auto 21.8 % (25-40); Mean Corpuscular HGB Conc 33.8 % (30-36); Mean Corpuscular Hemoglobin 32.2 PG (26-34); Mean Corpuscular Volume 95.4 fL (80-100); Monocytes Absolute Auto 600 /uL (0-900); Monocytes Percent Auto 8.7 % (3-14); Neutrophils Absolute Auto 4700 /uL (1500-7000); Neutrophils Percent Auto 68.2 % (50-75); Platelet Count 351 X10^3/uL (150-400); Red Blood Cell Count 2.78 X10^6/uL (4.0-5.2); Red Cell Distribution Width 14.4 % (11.6-14.8); White Blood Cell Count 6.9 X10^3/uL (4.5-11.0)
[2022-04-10 04:41] LABS: Alanine Aminotransferase 21 IU/L (<35); Albumin 2.7 g/dL (3.5-5.0); Albumin Globulin Ratio 1.1 (1.0-2.8); Alkaline Phosphatase 61 U/L (38-126); Aspartate Aminotransferase 24 IU/L (14-36); BUN Creatinine Ratio 35.3 (6-22); Bilirubin Total 0.1 mg/dL (0.2-1.3); Blood Urea Nitrogen 12 mg/dL (7-17); Carbon Dioxide 20 mmol/L (22-32); Chloride 114 mmol/L (98-107); Estimated Glomerular Filt Rate > 60 mL/min (>60); Globulin 2.5 g/dL (1.7-4.1); Glucose 70 mg/dL (80-110); HEMOLYSIS < 15 (0-50); Magnesium 1.4 mg/dL (1.6-2.3); Potassium 2.8 mmol/L (3.4-5.1); Sodium 139 mmol/L (137-145); Total Protein 5.2 g/dL (6.3-8.2)
[2022-04-10 05:04] LABS: Calcium 5.7 mg/dL (8.4-10.2)
[2022-04-10 07:17] LABS: Add Manual Diff / Slide Review NO; Basophils Absolute Auto 100 /uL (0-100); Basophils Percent Auto 0.8 % (0-2); Eosinophils Absolute Auto 0 /uL (0-450); Eosinophils Percent Auto 0.6 % (2-4); Hematocrit 31.1 % (36-46); Hemoglobin 10.5 g/dL (12.0-16.0); Lymphocytes Absolute Auto 1900 /uL (1100-4500); Lymphocytes Percent Auto 24.1 % (25-40); Mean Corpuscular HGB Conc 33.7 % (30-36); Mean Corpuscular Hemoglobin 32.5 PG (26-34); Mean Corpuscular Volume 96.3 fL (80-100); Monocytes Absolute Auto 700 /uL (0-900); Monocytes Percent Auto 8.7 % (3-14); Neutrophils Absolute Auto 5300 /uL (1500-7000); Neutrophils Percent Auto 65.8 % (50-75); Platelet Count 411 X10^3/uL (150-400); Red Blood Cell Count 3.23 X10^6/uL (4.0-5.2); Red Cell Distribution Width 14.4 % (11.6-14.8); White Blood Cell Count 8.1 X10^3/uL (4.5-11.0)
[2022-04-10 07:18] LABS: Alanine Aminotransferase 26 IU/L (<35); Albumin 3.7 g/dL (3.5-5.0); Albumin Globulin Ratio 1.2 (1.0-2.8); Alkaline Phosphatase 81 U/L (38-126); Aspartate Aminotransferase 31 IU/L (14-36); BUN Creatinine Ratio 32.6 (6-22); Bilirubin Total 0.2 mg/dL (0.2-1.3); Blood Urea Nitrogen 15 mg/dL (7-17); Calcium 7.6 mg/dL (8.4-10.2); Carbon Dioxide 24 mmol/L (22-32); Chloride 104 mmol/L (98-107); Estimated Glomerular Filt Rate > 60 mL/min (>60); Globulin 3.2 g/dL (1.7-4.1); Glucose 84 mg/dL (80-110); HEMOLYSIS < 15 (0-50); Potassium 3.4 mmol/L (3.4-5.1); Sodium 136 mmol/L (137-145); Total Protein 6.9 g/dL (6.3-8.2)
[2022-04-10] MEDS: CARBIDOPA-LEVODOPA 25/100 TABLET 2 EACH PO ×3 (09:24→20:50)
[2022-04-10] MEDS: ASPIRIN EC 81 MG TABLET PO (09:24)
[2022-04-10] MEDS: DOCUSATE 100 MG CAPSULE PO ×2 (09:24→20:51)
[2022-04-10] MEDS: METOPROLOL ER 25 MG TABLET PO (09:24)
[2022-04-10] MEDS: SERTRALINE 50 MG TABLET 100 MG PO (09:24)
[2022-04-10] MEDS: ENOXAPARIN 30 MG/0.3 ML SYRINGE SUBCUT (09:25)
[2022-04-10] MEDS: SODIUM CHLORIDE 0.9% 1,000 ML 100 ML IV (10:08)
--- NOTE | 2022-04-10 12:39 | CM.DANOTE ---
Addendum entered by Gege Draper R.N. 04/10/22 15:40: Spoke with Lew to give update. Please keep him updated. SERAFIN Original Note: Initial Discharge Assessment Note: Case reviewed, patient very demented, spoke with supportive son TARAS Hackett. Lew is known to me locally. He will not be visiting as he has come down with Covid. Payer: [employer] Medicare ([facility]) PCP: Nadia Casanova 81 year old female with advanced dementia admitted s/p fall at [facility] yesterday. Admitted with rib fractures and metacarpal fractures. Hx of supranuclear palsy with frequent falls. Patient resides at [facility] in [place]. Johnny Hackett lives locally and is involved in overseeing patient's care. Spoke with Lew and discussed most likely a SNF rehab would be her discharge plan, which he is amenable to. His first choice is [facility] and he is hoping for this because it is local and he can visit. If this is not possible he will make other choices at that time, tomorrow. Spoke with Rachel healthcare market consultant for [facility], she states they may have a bed available on Monday. Faxed Referral. Plan: Follow for needs. Follow up with [facility] tomorrow morning. SERAFIN Discharge Planning/Care Management CM Discharge Assessment Start: 04/10/22 12:35 Freq: Status: Active Protocol: Document 04/10/22 12:35 (Rec: 04/10/22 12:38 [id number]) Discharge Planning Assessment Assigned Nursing Care Partner Isabelle Draper RN, DCP Advance Directives? Yes: TARAS Hackett [place] Advance Directives on File No History Provided By Patient,Medical Record Prior Living Arrangements Adult Family Home Comment [facility] Household Members caregiver Comment AF staff Type of transporation used prior to Relies on Others admit Facility Name Admitted From: [facility] Willing to Return to Facility? Probably needs SNF Independent with ADL's No Is patient alert and oriented? No: Dementia Needs Assistance With Bathing,Eating,Grooming,Meal Prep,Toileting,Managing Medications,Home Chores / Shopping Caregiver for Another No Comment As appropriate at [facility] Comment Most likely need SNF Discharge Plan Inpatient Rehab Unit Referrals Initiated Half-Way Review Status In Process Next Review Type Continued Stay Review
[2022-04-10] MEDS: MAGNESIUM CHLORIDE 64 MG TABLET 128 MG PO (14:31)
--- NOTE | 2022-04-10 14:57 | PT.IIE ---
Current Diagnoses Mild protein-calorie malnutrition (04/09/22) Medical History (Last Updated 04/09/22 @ 21:54 by ARELY Hernandez) Dementia Hypertension Iron deficiency Mild protein-calorie malnutrition (weight for age 75-89% of standard) Osteoporosis Parkinsons Progressive supranuclear palsy Physical Therapy Inpatient Evaluation/Re-Eval M1 PT/OT-IP Prior Functional Status Start: 04/10/22 14:39 Freq: Status: Active Protocol: Document 04/10/22 14:40 BC (Rec: 04/10/22 14:57 BC [id number]) Medical Review Prior Functional Status Medical History Reviewed Yes Communication hypophonia Mobility and Gait Movement disorder: Supranuclear Palsy resulting in falls and zehra/hypokinesia . Uses walker at baseline. Prior Functional Level (Other details) Resides in [facility]. Assist for ADLs. Ambulates with a walker Social History Household Members caregiver Living Arrangements Adult Family Home Number of Stairs To Enter/Railing? level Additional Social History Comment Pt is not a reliable historian at this time. 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 M2 PT-IP Current Condition Start: 04/10/22 14:39 Freq: Status: Active Protocol: Document 04/10/22 14:40 BC (Rec: 04/10/22 14:57 [id number]) Physical Therapy Current Condition Current Condition Evaluation Date 04/10/22 Treatment Diagnosis Fall; finger fracture; difficulty with ambulation Onset Date 04/09/22 M3 PT-IP Subjective Start: 04/10/22 14:39 Freq: Status: Active Protocol: Document 04/10/22 14:40 BC (Rec: 04/10/22 14:57 [id number]) Subjective Physical Therapy Visit Type Type Initial Evaluation Visit Start Time 14:10 Visit Stop Time 14:40 Total Visit Minutes 29 Physical Therapy Visit Comments Patient Comments I am waiting automation machine operator from [facility]aya Mauro; Shen Longo. Patient Goals None stated but she is agreeable to getting OOB when asked. Therapy Pain Assessment Pain When Pain Assessed During Mobility Pain Present Pain Present Denied Pain Location Back Intensity [address]-Dave (Faces) Left hand Intensity 0 [address]FranciscoDave (Faces) M4 PT-IP Mobility and Gait Start: 04/10/22 14:39 Freq: Status: Active Protocol: Document 04/10/22 14:40 BC (Rec: 04/10/22 14:57 BC [id number]) PT-Bed Mobility Assessment Supine to Sit Supine to Sit Minimal Assistance Sit to Supine Sit to Supine Moderate Assistance Scooting Scooting to Edge of Bed Minimal Assistance PT-Transfer Assessment Sit to and From Stand Sit to and from Stand Contact Guard Assistance, Minimal Assistance Equipment Transfer Assistive Device Gait Belt Transfers Transfer Destination Bed Transfer Technique Stand Pivot Transfer Ability Level of Assist Minimal Assistance Comments Mobility Comments RUE hand held support throughout transfers and ambulation. Pt's PLOF is with a walker. Based on her cognition and LUE in splint, I elected to assist with hand held support vs a platform walker. Gait Assessment Gait Gait Assistance Required: Contact Guard Assist,Minimum Assistance Distance (Feet) 100 Able to Maintain Weight Bearing Status Yes During Gait Assistive Devices Assistive Device Gait Belt Gait Deviations General Gait Pattern Decreased Stride Length, Decreased Feet Clearance, Festinating,Flexed Trunk, Narrow Based Gait Factors Limiting Gait Function Factors Limiting Gait Function Abnormal Tonal Influences, Decreased Activity Tolerance, Poor Balance,Poor Safety Awareness Comments Gait Comments 100' x2 with rest break. Freezing during turns needing min A to prevent posterior LOB . Festination of steps but responding well to cues for bigger steps during straight path. Using RUE support hand held vs platform walker due to cognition/safety concern. Pt has LUE in splint due to 4th and 5th finger fx. Therapist elects to keep LUE NWB though no specific WB from physicians . Stair Climbing Assessment Comments Stair Climbing Comments NA PT-Balance Assessment Sitting Balance and Reactions Static Sitting Balance Ability Good Dynamic Sitting Balance Ability Fair Standing Balance and Reactions Static Standing Balance Ability Fair Dynamic Standing Balance Ability Poor Device Used hand held Comments Other Balance Tests/Deviations/Treatment Absent postural control : responses. Frequent posterior LOB in sitting and standing. LOB occuring most frequently during freezing episodes which happened with turns and smaller spaces to mobilize within. M5 PT-IP Objective Assessments Start: 04/10/22 14:39 Freq: Status: Active Protocol: Document 04/10/22 14:40 BC (Rec: 04/10/22 14:57 [id number]) Orientation Orientation/Cognition Level of Alertness Confusional State Orientation Name Comments Pt thought she was at work. Thought she had a call coming from [place]. She was re-oriented to place and situation. Gross Range of Motion Upper Extremity ROM Assessment Bilaterally Impaired Impairments LUE in splint due to 4th/5th digit fractures that goes up to forearm. Lower Extremity ROM Assessment Bilaterally Impaired Impairments Rigidity of musculature resuling in reduced AROM of hip/knee/ankles bilaterally Strength Upper Extremity Strength Assessment Left Impaired Shoulder 3/5 Elbow 3/5 Wrist not assessed on LUE Hand not assessed on LUE Lower Extremity Strength Assessment Bilaterally Impaired Hip 4/5 Knee 4/5 Ankle 4/5 Comments Strength Comments Movement is better described as hypokinetic and bradykinetic vs MMT. Due to this movement disorder she has reduced motor function for larger amplitude movements like sit to stand transfers and sit to supine; resulting in increased caregiver assist. 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 M6 PT-IP Treatment Start: 04/10/22 14:39 Freq: Status: Active Protocol: Document 04/10/22 14:40 BC (Rec: 04/10/22 14:57 [id number]) Physical Therapy Treatment Education Education Provided Precautions,Safety Other Treatments Other Treatment Performed Pt was educated on current status/fracture and need for assist with mobility. Due to cognition she will need ongoing support/education. Bed alarm on at end of session. M7 PT-IP Assessment and Plan Start: 04/10/22 14:39 Freq: Status: Active Protocol: Document 04/10/22 14:40 BC (Rec: 04/10/22 14:57 [id number]) PT Summary Assessment and Plan Potential Rehabilitation Potential Good Status of Condition at Evaluation Stable Summary Impairments ROM,Strength,Balance, Coordination,Tone,Cognition, Bed Mobility,Transfers,Gait, Activity Tolerance Progress Towards Goals Progressing Toward Goals Assessment Summary Pt admitted due to fall at [facility] resulting in rib fractures and 4th and 5th digit fractures of LUE. Son is POA. Pt has diagnosis of Supranuclear Palsy and is on carbidopa- levadopa. Her PLOF is obtained from available chart reviewing. Appears that she uses a walker at [facility]. Her CLOF is requiring min to mod A for bed mobility and stand pivot and sit to stand transfers. Her ambulation requires min to CGA with assist most needed during direction changes or crowded environments due to freezing and subsequent LOB. IPPT to see if platform walker would be beneficial or more of a fall risk due to her movement disorder. Concerned with platform walker and turns with freezing. Further assessment of a cane may be needed but that is likely not enough support for balance. Recommend SNF for daily therapy to progress to PLOF of modif Ind ambulation. Goals Bed Mobility Goal Independent Transfer Goal Standby Assistance Gait Goal Standby Assistance,Contact Guard Assistance Gait Distance 150 Other Goals Determine DME best suited for Pt safety: SPC, RECRUITMENT MANAGER, vs platform walker Days to Meet Goals 5 Frequency of Treatment Frequency Of Treatment Once a Day Treatment Plan Physical Therapy Treatment Plan Bed Mobility Training,Transfer Training,Gait Training, Therapeutic Exercise,Balance Retraining,Discharge Planning, Neuromuscular Re-ed Precautions Other Precautions LUE in splint Weight Bearing Status Allowed Weight Bearing Amount (enter % WB not reported in chart or #) (%) however, PT keeping Pt NWB on LUE due to splint and finger fx. Recommendations To Nursing Amount of Assist Needed 1 Person Assist Discharge Recommendations PT Discharge Recommendations SNF Rehab Transportation Needs at Discharge Wheelchair/Cabulance
--- NOTE | 2022-04-10 14:59 | P.PN_ITS ---
Subjective Subjective Interval history: Philomena Laureanois a 81-year-old female resident of an adult family home with a history of dementia, hypertension and supranuclear palsy with frequent falls presented to the ED today after a fall.? She somehow fell on a dresser she had an obvious left 5th pinky deformity and laceration.? She does complain of upper left sided abdominal pain, nausea and vomiting.? She has frequent falls.? Not on anticoagulation.?She stated that staff where she lives do not respond to her r equests for help to the bathroom, so she tries to ambulate unsupervised or unassisted. Chest xray done in the ED indicated minimally displaced left lateral 4th and 5th rib fractures. Xray of the left hand indicated medial dislocation at the 5th PIP joint with suspected distal 5th metacarpal fracture. Re-read of the left hand xray also identified a mildly displaced fracture of the distal 4th metacarpal. Today she was also found to have a urinary tract infection, prior microbiology grew out E.coli sensitive to ceftriaxone. She presented w/a fever of 100 and currently is 99.7.? Patient is feeling much better since her admission. Her pain is reasonably controlled at this time. She is been able to mobilize in the room. Eager to think about going home tomorrow. Exam Vital Signs (past 8 hours): - 04/10/22 09:43 04/10/22 10:16 04/10/22 10:00 Temperature 99.0 F Pulse Rate 74 88 Respiratory Rate 18 Blood Pressure 178/70 H Pulse Oximetry 94 96 Oxygen Delivery Method Room Air Oxygen Flow Rate 0 04/10/22 11:40 Temperature 98.6 F Pulse Rate 67 Respiratory Rate 14 Blood Pressure 147/96 H Pulse Oximetry 97 Oxygen Delivery Method Oxygen Flow Rate 0 Oxygen Delivery Method Room Air Oxygen Flow Rate 0 Narrative Exam Narrative: Gen: Alert, oriented, thin and frail-appearing 81 y.o. female, NAD HEENT: normocephalic, atraumatic, conjunctiva clear, sclera non-icteric, oral mucosa pink and moist Neck: supple, full ROM, no JVD, trachea is midline Resp: Lungs CTA, non-labored breathing CV: RRR, no murmur or rubs Abd: soft, non-tender, normoactive BTs Skin: no lesions or rashes, dry and intact Neuro: Pleasantly confused w/some word salad. Speech clear and coherent. Extremities: left hand in hard cast, no swelling in her fingers, moves all 4 extremities, is ambulatory, negative Rajeev?s sign Psyche: normal mood and affect. Objective Labs 04/10/22 05:30 04/10/22 05:30 Labs: Laboratory Results - last 24 hr 04/09/22 04/09/22 04/09/22 14:52 14:52 14:52 WBC 7.6 RBC 3.51 L Hgb 11.6 L Hct 33.5 L MCV 95.6 MCH 33.0 MCHC 34.5 RDW 14.6 Plt Count 438 H Neut % (Auto) 76.3 H Lymph % (Auto) 15.4 L Bowman % (Auto) 5.3 Eos % (Auto) 0.6 L Baso % (Auto) 2.4 H Neut # (Auto) 5800 Lymph # (Auto) 1200 Bowman # (Auto) 400 Eos # (Auto) 0 Baso # (Auto) 200 H Sodium 141 Potassium 3.9 Chloride 105 Carbon Dioxide 26 BUN 19 H Creatinine 0.53 Estimated GFR > 60 BUN/Creatinine Ratio 35.8 H Glucose 105 Lactate 1.0 Calcium 8.4 Magnesium Total Bilirubin 0.4 AST 30 ALT 13 Alkaline Phosphatase 77 Total Creatine Kinase 155 H CK-MB (CK-2) 3.09 H CK-MB (CK-2) Rel Index 2.0 Troponin I < 0.012 Total Protein 7.2 Albumin 4.0 Globulin 3.2 Albumin/Globulin Ratio 1.3 Procalcitonin Urine Color Urine Appearance Urine pH Ur Specific Macon Urine Protein Urine Glucose (UA) Urine Ketones Urine Occult Blood Urine Nitrate Urine Bilirubin Urine Urobilinogen Ur Leukocyte Esterase Urine RBC Urine WBC Urine Bacteria Urine Mucus Ur Culture Indicated? SARS-CoV-2 (PCR) 04/09/22 04/09/22 04/09/22 14:52 15:37 16:40 WBC RBC Hgb Hct MCV MCH MCHC RDW Plt Count Neut % (Auto) Lymph % (Auto) Bowman % (Auto) Eos % (Auto) Baso % (Auto) Neut # (Auto) Lymph # (Auto) Bowman # (Auto) Eos # (Auto) Baso # (Auto) Sodium Potassium Chloride Carbon Dioxide BUN Creatinine Estimated GFR BUN/Creatinine Ratio Glucose Lactate Calcium Magnesium Total Bilirubin AST ALT Alkaline Phosphatase Total Creatine Kinase CK-MB (CK-2) CK-MB (CK-2) Rel Index Troponin I Total Protein Albumin Globulin Albumin/Globulin Ratio Procalcitonin 0.05 Urine Color Yellow Urine Appearance Clear Urine pH 7.0 Ur Specific Macon 1.020 Urine Protein Negative Urine Glucose (UA) Negative Urine Ketones Trace H Urine Occult Blood Negative Urine Nitrate Negative Urine Bilirubin Negative Urine Urobilinogen 1.0 Ur Leukocyte Esterase Trace H Urine RBC 0-1/hpf Urine WBC 5-10/hpf H Urine Bacteria Occasional (0-1) Urine Mucus 1+ H Ur Culture Indicated? Specimen cultured SARS-CoV-2 (PCR) Negative 04/10/22 04/10/22 04/10/22 04:08 04:08 05:30 WBC 6.9 8.1 RBC 2.78 L 3.23 L Hgb 9.0 L 10.5 L Hct 26.5 L 31.1 L MCV 95.4 96.3 MCH 32.2 32.5 MCHC 33.8 33.7 RDW 14.4 14.4 Plt Count 351 411 H Neut % (Auto) 68.2 65.8 Lymph % (Auto) 21.8 L 24.1 L Bowman % (Auto) 8.7 8.7 Eos % (Auto) 0.7 L 0.6 L Baso % (Auto) 0.6 0.8 Neut # (Auto) 4700 5300 Lymph # (Auto) 1500 1900 Bowman # (Auto) 600 700 Eos # (Auto) 0 0 Baso # (Auto) 0 100 Sodium 139 Potassium 2.8 L Chloride 114 H Carbon Dioxide 20 L BUN 12 Creatinine 0.34 L Estimated GFR > 60 BUN/Creatinine Ratio 35.3 H Glucose 70 L Lactate Calcium 5.7 L* Magnesium 1.4 L Total Bilirubin 0.1 L AST 24 ALT 21 Alkaline Phosphatase 61 Total Creatine Kinase CK-MB (CK-2) CK-MB (CK-2) Rel Index Troponin I Total Protein 5.2 L Albumin 2.7 L Globulin 2.5 Albumin/Globulin Ratio 1.1 Procalcitonin Urine Color Urine Appearance Urine pH Ur Specific [place] Urine Protein Urine Glucose (UA) Urine Ketones Urine Occult Blood Urine Nitrate Urine Bilirubin Urine Urobilinogen Ur Leukocyte Esterase Urine RBC Urine WBC Urine Bacteria Urine Mucus Ur Culture Indicated? SARS-CoV-2 (PCR) 04/10/22 05:30 WBC RBC Hgb Hct MCV MCH MCHC RDW Plt Count Neut % (Auto) Lymph % (Auto) Bowman % (Auto) Eos % (Auto) Baso % (Auto) Neut # (Auto) Lymph # (Auto) Bowman # (Auto) Eos # (Auto) Baso # (Auto) Sodium 136 L Potassium 3.4 Chloride 104 Carbon Dioxide 24 BUN 15 Creatinine 0.46 L Estimated GFR > 60 BUN/Creatinine Ratio 32.6 H Glucose 84 Lactate Calcium 7.6 L Magnesium Total Bilirubin 0.2 AST 31 ALT 26 Alkaline Phosphatase 81 Total Creatine Kinase CK-MB (CK-2) CK-MB (CK-2) Rel Index Troponin I Total Protein 6.9 Albumin 3.7 Globulin 3.2 Albumin/Globulin Ratio 1.2 Procalcitonin Urine Color Urine Appearance Urine pH Ur Specific Mac[place] Urine Protein Urine Glucose (UA) Urine Ketones Urine Occult Blood Urine Nitrate Urine Bilirubin Urine Urobilinogen Ur Leukocyte Esterase Urine RBC Urine WBC Urine Bacteria Urine Mucus Ur Culture Indicated? SARS-CoV-2 (PCR) [facility] Medical History (Updated 04/10/22 @ 00:00 by ) Dementia Hypertension Iron deficiency Mild protein-calorie malnutrition (weight for age 75-89% of standard) Osteoporosis Parkinsons Progressive supranuclear palsy Social History household members: caregiver Smoking Status: Never smoker Assessment & Plan Assessment & Plan narrative: UTI, acute and present on admission -She is ordered for IV ceftriaxone -Urine cx -shows only mixed juan jose, can discontinue IV antibiotic Frequent falls, acute and present on admission -She has fractures of the left 4th and 5fth ribs and distal 4th and 5th metacarpal fractures of the left hand -Pain control with tylenol and tramadol-pain reasonably controlled at this time Protein calorie malnutrition, likely chronic -She has a BMI of just under 16 -Requested dietary consult to add protein drinks to her diet -this would be of benefit to continue with advice per dietary consult upon discharge Supernuclear palsy, chronic -Likely contributing factor to patient's falls -continue home dose of carbadopa-levadopa 25/100, 2 tabs tid Dementia, chronic -She has been placed in a high visibility room for closer monitoring VTE Prophylaxis: Wells risk score 0 Enoxaparin 40 mg subQ once daily? Bilateral SCDs Social determinants of health: Dementia, fdc Dispo: probable d/c to adult family home, expect discharge tomorrow. Code status: DNR as discussed with the patient by admitting nurse practitioner who identifies her son as her surrogate and POA. She has an advanced directive on file that states she does not want DNR, but when asked she was very clear that she does not want resuscitation. Time Spent With Patient Critical Care time: I spent a total of [] minutes of critical care time on this patient's care today; this time is exclusive of procedural time.
[2022-04-10 20:04] LABS: Magnesium 1.9 mg/dL (1.6-2.3)
[2022-04-10] MEDS: MELATONIN 3 MG TABLET 6 MG PO (20:51)
[2022-04-10] MEDS: SODIUM CHLORIDE 0.9% FLUSH 10 ML IV (20:51)
[2022-04-11] MEDS: TRAMADOL 50 MG TABLET PO ×3 (02:48→15:29)
[2022-04-11 04:46] LABS: Add Manual Diff / Slide Review NO; Basophils Absolute Auto 0 /uL (0-100); Basophils Percent Auto 0.4 % (0-2); Eosinophils Absolute Auto 100 /uL (0-450); Eosinophils Percent Auto 0.7 % (2-4); Hematocrit 31.4 % (36-46); Hemoglobin 10.7 g/dL (12.0-16.0); Lymphocytes Absolute Auto 1500 /uL (1100-4500); Lymphocytes Percent Auto 21.1 % (25-40); Mean Corpuscular HGB Conc 33.9 % (30-36); Mean Corpuscular Hemoglobin 32.3 PG (26-34); Mean Corpuscular Volume 95.2 fL (80-100); Monocytes Absolute Auto 800 /uL (0-900); Monocytes Percent Auto 10.4 % (3-14); Neutrophils Absolute Auto 5000 /uL (1500-7000); Neutrophils Percent Auto 67.4 % (50-75); Platelet Count 426 X10^3/uL (150-400); Red Cell Distribution Width 14.4 % (11.6-14.8); White Blood Cell Count 7.4 X10^3/uL (4.5-11.0)
[2022-04-11 04:47] VITALS: BP 156/64; PULSE 79; RESP 17; TEMP 36.7; O2SAT 96
[2022-04-11 05:00] LABS: Alanine Aminotransferase 10 IU/L (<35); Albumin 3.8 g/dL (3.5-5.0); Albumin Globulin Ratio 1.2 (1.0-2.8); Alkaline Phosphatase 83 U/L (38-126); Aspartate Aminotransferase 28 IU/L (14-36); Bilirubin Total 0.4 mg/dL (0.2-1.3); Blood Urea Nitrogen 13 mg/dL (7-17); Calcium 7.9 mg/dL (8.4-10.2); Carbon Dioxide 26 mmol/L (22-32); Chloride 101 mmol/L (98-107); Estimated Glomerular Filt Rate > 60 mL/min (>60); Globulin 3.2 g/dL (1.7-4.1); Glucose 95 mg/dL (80-110); HEMOLYSIS < 15 (0-50); Potassium 3.2 mmol/L (3.4-5.1); Sodium 133 mmol/L (137-145)
[2022-04-11 07:40] VITALS: BP 146/63; PULSE 74; RESP 15; TEMP 37.5; O2SAT 95
[2022-04-11] MEDS: ASPIRIN EC 81 MG TABLET PO (09:15)
[2022-04-11 09:16] VITALS: BP 156/64; PULSE 79
[2022-04-11] MEDS: ENOXAPARIN 30 MG/0.3 ML SYRINGE SUBCUT (09:16)
[2022-04-11] MEDS: SODIUM CHLORIDE 0.9% FLUSH 10 ML IV (09:16)
[2022-04-11] MEDS: METOPROLOL ER 25 MG TABLET PO (09:16)
[2022-04-11] MEDS: FERROUS SULFATE 325 MG TABLET PO (09:16)
[2022-04-11] MEDS: CARBIDOPA-LEVODOPA 25/100 TABLET 2 EACH PO ×2 (09:17→15:26)
[2022-04-11] MEDS: DOCUSATE 100 MG CAPSULE PO (09:17)
[2022-04-11] MEDS: SERTRALINE 50 MG TABLET 100 MG PO (09:17)
[2022-04-11 10:00] VITALS: O2SAT 96
--- NOTE | 2022-04-11 10:29 | DIET.CONS ---
Dietary Consultation Note Admission Date: 04/09/2022 17:04 Assessment: 81y F admitted after fractures sustained from GLF referred to nutrition for low BMI. Pt with dementia and palsy residing at [facility]. Pt with Chronic Malnutrition found to have severe unintentional reduction in weight over past 1mo (-14%, severe). Pt unable to recollect circumstances leading weight loss secondary to dementia. Ht: 157.48 cm Wt: 38.5 kg (-14% in 1mo, severe) BMI: 15.9 (severe) UBW: 45-52kg Last BM: 04/08/22 (04/09/22 18:41) MNA: 10 Vidal Score: 19 Diet: 04/09/22 Breakfast Heart Healthy Diet Diet Modifications: Sodium Level: 2 gm Sodium Nutrition Percent Meal Consumed 0% 04/11/22 09:33 Percent Meal Consumed 20 04/10/22 13:00 Percent Meal Consumed 75% 04/10/22 12:15 Labs: RBC 3.30 X10^6/uL (4.0-5.2) L 04/11/22 04:18 Hgb 10.7 g/dL (12.0-16.0) L 04/11/22 04:18 Hct 31.4 % (36-46) L 04/11/22 04:18 Creatinine 0.50 mg/dL (0.52-1.04) L 04/11/22 04:18 Lactate 1.0 mmol/L (0.7-2.1) 04/09/22 14:52 Nutrition Diagnosis: Severe Acute Protein Calorie Malnutrition r/t psychological causes (dementia) aeb 14% unintentional weight loss in 1mo (severe), BMI 15.5 (severe), MNA 10, pt with frequent falls resulting in fractures, pt POs while hospitalized 0-75% despite adequate cues and delivery of meals to bedside. Interventions: 1. To support pts nutrition status, recc oral nutrition supplement to replace any meal with POs <75% while hospitalized and in [facility] setting. Electronically Signed by: Huong Elizabeth 04/11/22 10:29 Clinical Dietitian [address] [address]
--- NOTE | 2022-04-11 11:22 | PT.IPTN ---
Current Diagnoses Mild protein-calorie malnutrition (04/09/22) Physical Therapy Treatment Note M2 PT-IP Current Condition Start: 04/10/22 14:39 Freq: Status: Active Protocol: Document 04/10/22 14:40 BC (Rec: 04/10/22 14:57 BC [id number]) Physical Therapy Current Condition Current Condition Evaluation Date 04/10/22 Treatment Diagnosis Fall; finger fracture; difficulty with ambulation Onset Date 04/09/22 M3 PT-IP Subjective Start: 04/10/22 14:39 Freq: Status: Active Protocol: Document 04/11/22 11:06 BC (Rec: 04/11/22 11:22 [id number]) Subjective Physical Therapy Visit Type Type Treatment Note Visit Start Time 10:25 Visit Stop Time 11:00 Total Visit Minutes 30 Physical Therapy Visit Comments Patient Comments Pt agreeable to OOB again. States she feels much better each day. Patient Goals To return to the adult family home. Therapy Pain Assessment Pain When Pain Assessed At Rest Pain Present Pain Present Denied Pain M4 PT-IP Mobility and Gait Start: 04/10/22 14:39 Freq: Status: Active Protocol: Document 04/11/22 11:06 BC (Rec: 04/11/22 11:22 [id number]) PT-Bed Mobility Assessment Supine to Sit Supine to Sit Minimal Assistance Scooting Scooting to Edge of Bed Minimal Assistance PT-Transfer Assessment Sit to and From Stand Sit to and from Stand Minimal Assistance Equipment Transfer Assistive Device Gait Belt Transfers Transfer Destination Bed,Chair Transfer Technique Stand Pivot Transfer Ability Level of Assist Minimal Assistance Comments Mobility Comments Supine to sit - Pt able to transfer into long sitting I' ly. From here there was some freezing and needed min A to initiate movement of LE to edge of bed. Once seated EOB sit to stand x3 reps with min A. Sit to stand remains the more assisted transfer with Pt needing assist to prevent posterior LOB and weight shift anteriorly. Gait Assessment Gait Gait Assistance Required: Contact Guard Assist,Minimum Assistance Distance (Feet) 150 Assistive Devices Assistive Device Gait Belt Gait Deviations General Gait Pattern Decreased Stride Length, Decreased Feet Clearance, Festinating,Flexed Trunk, Narrow Based Gait Factors Limiting Gait Function Factors Limiting Gait Function Abnormal Tonal Influences, Decreased Activity Tolerance, Poor Balance,Poor Safety Awareness Comments Gait Comments We trialed walker with bend sorter on digits 1-3 on walker and we tried a SPC in RUE. Both of these assistive devices were not appropriate and adequate in supporting Philomena. Her balance and mobility did best with hand held assist. With the assistive devices she experienced increased freezing , festination and retropulsion due to Supranuclear Palsy. With hand held assist and min to CGA support she was able to safely ambulate 150' without rest and without LOB. Stair Climbing Assessment Comments Stair Climbing Comments NA PT-Balance Assessment Sitting Balance and Reactions Static Sitting Balance Ability Good Dynamic Sitting Balance Ability Fair Standing Balance and Reactions Static Standing Balance Ability Fair Dynamic Standing Balance Ability Poor Device Used hand held Comments Other Balance Tests/Deviations/Treatment Pt's balance will remain : impaired due to supranuclear palsy affecting postural control pathways. This is unlikely to improve given progressive nature of SNP. M5 PT-IP Objective Assessments Start: 04/10/22 14:39 Freq: Status: Active Protocol: Document 04/10/22 14:40 BC (Rec: 04/10/22 14:57 BC [id number]) Orientation Orientation/Cognition Level of Alertness Confusional State Orientation Name Comments Pt thought she was at work. Thought she had a call coming from [place]. She was re-oriented to place and situation. Gross Range of Motion Upper Extremity ROM Assessment Bilaterally Impaired Impairments LUE in splint due to 4th/5th digit fractures that goes up to forearm. Lower Extremity ROM Assessment Bilaterally Impaired Impairments Rigidity of musculature resuling in reduced AROM of hip/knee/ankles bilaterally Strength Upper Extremity Strength Assessment Left Impaired Shoulder 3/5 Elbow 3/5 Wrist not assessed on LUE Hand not assessed on LUE Lower Extremity Strength Assessment Bilaterally Impaired Hip 4/5 Knee 4/5 Ankle 4/5 Comments Strength Comments Movement is better described as hypokinetic and bradykinetic vs MMT. Due to this movement disorder she has reduced motor function for larger amplitude movements like sit to stand transfers and sit to supine; resulting in increased caregiver assist. 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 M6 PT-IP Treatment Start: 04/10/22 14:39 Freq: Status: Active Protocol: Document 04/11/22 11:06 BC (Rec: 04/11/22 11:22 BC [id number]) Physical Therapy Treatment Education Education Provided Safety Other Treatments Other Treatment Performed Focus today was on determining appropriate DME for ambulation at discharge. Due to Pt's LUE finger injuries and postural control deficits from supranuclear palsy I recommend hand hold assist. This was reviewed with the patient. M7 PT-IP Assessment and Plan Start: 04/10/22 14:39 Freq: Status: Active Protocol: Document 04/11/22 11:06 (Rec: 04/11/22 11:22 [id number]) PT Summary Assessment and Plan Potential Rehabilitation Potential Good Status of Condition at Evaluation Stable Summary Impairments ROM,Strength,Balance, Coordination,Tone,Cognition, Bed Mobility,Transfers,Gait, Activity Tolerance Progress Towards Goals Progressing Toward Goals Assessment Summary Pt agreeable to PT. She continued to demonstrate similar mobility level as seen yesterday. This is good that she consistently is mobilizing at a min A level. I suspect that given her progressive neurologic diagnosis of supranuclear palsy she will likely remain at a level needing min A. Her impaired balance is pre-existing to this admission and it is reported that she is having several falls. I recommend d/c back to 24/7 level of assist at adult family home. She should mobilize/transfer with caregiver hand held support. HHPT to assess home safety and further progression with DME. I would anticipate that if falls continue to happen consideration for increased w/ c support should be made. Goals Bed Mobility Goal Independent Transfer Goal Standby Assistance Gait Goal Standby Assistance,Contact Guard Assistance Gait Distance 150 Other Goals Determine DME best suited for Pt safety: SPC, ORE DRYER, vs platform walker Days to Meet Goals 5 Frequency of Treatment Frequency Of Treatment Once a Day Treatment Plan Physical Therapy Treatment Plan Bed Mobility Training,Transfer Training,Gait Training, Therapeutic Exercise,Balance Retraining,Discharge Planning, Neuromuscular Re-ed Precautions Other Precautions LUE in splint Weight Bearing Status Allowed Weight Bearing Amount (enter % WB not reported in chart or #) (%) however, PT keeping Pt NWB on LUE due to splint and finger fx. Recommendations To Nursing Amount of Assist Needed 2 Person Assist Discharge Recommendations PT Discharge Recommendations Home with 24/7 Assist Available Other Discharge Recommendations Return to Adult family home with assist for transfers/ ambulation. Transportation Needs at Discharge Private Vehicle
[2022-04-11 11:45] VITALS: BP 131/55; PULSE 60; RESP 20; TEMP 36.7; O2SAT 96
[2022-04-11 11:55] VITALS: BP 131/55; PULSE 60; RESP 20; TEMP 36.8; O2SAT 96
[2022-04-11] MEDS: POTASSIUM CHLORIDE 20 MEQ TAB 40 MEQ PO (11:59)
--- NOTE | 2022-04-11 13:14 | CM.DPC ---
Addendum entered by GALINA Griffin 04/11/22 15:22: SHEILA confirmed with [facility] and other SNFs now that pt Inpt Status and they confirm that pt does not really have a Skillable need for SNF and due to her impulsivity and high fall risk they do not feel they can meet her needs due to staffing. SHEILA called Lanie at [facility] and updated on above and the barriers for SNF and inability to do SNF at this time as more of a LTC need/outpt f/u on pt's cognition. They have concerns with pt's fall risk and discussed likely need to talk with family about how to increase her care if needed. [facility] agreeable with pt returning today and request meds be sent to [facility]. SHEILA updated MD who will send meds to [facility]. SHEILA called son Lew and updated on above and the barriers to SNF and he is reluctantly agreeable to pt not getting into SNF and will work to call family to provide transport today back to [facility]. SHEILA updated RN and sleeve fixer. BF Original Note: DCP Cont: Per MD, pt is medically stable and per [facility] RN due to neuropsychiatrist documentation pt able to be changed to Inpt Status due to acute protein calorie malnutrition. Per PT, worked with pt today and she did very well and only needed assist from sit to stand as unable to do independently and with her broken fingers walker was difficult but pt only needed hand hold assist and ambulated around the unit and recommend return to [facility]. SHEILA called pt's son/DPRAMAKRISHNA Hackett and updated and he would be agreeable with return to [facility] with HH if they can accept her back and he confirms family could provide transport at d/c. SHEILA called Lanie at [facility] [phone] and spoke to her and one of the caregivers via speaker phone and updated on above and they state they were hopeful for SNF before return as pt has been impulsive and fall risk and wanted SNF to do a good workup on the reason for her impulsivity. SHEILA explained that SNF would work on strengthening and continuing her meds but cannot do further indepth assessments/workups but would likely be outpt Neurology etc.. They confirm pt has been seen multiple times by Neurologist without much success or help. SHEILA explained that pt would need to meet criteria for SNF rehab for Medicare to cover and for SNF to accept. SHEILA agreed to reach out to [facility] again now that pt Inpt Status to review to determine if pt is skillable for SNF but if pt does not meet SNF criteria will likely be return to their facility with HH and outpt f/u. SHEILA called [facility] to update and left msg requesting review to determine if pt meets criteria. GALINA Griffin
--- NOTE | 2022-04-11 14:59 | PM.DS.1 ---
History of Present Illness History of Present Illness Chief complaint: fall? finger fx/dislocation? Discharge Providers Provider Date of admission: 04/09/22 17:04 Discharge Date: 04/11/22 Primary care physician: Nadia Casanova MD Consults: 04/09/22 20:30 Consult to Physical Therapy Evaluate & Treat Comment: Physician Instructions: Evaluate and Treat 04/09/22 21:53 Consult to Dietitian, Adult Routine Comment: Low bmi, Reason For Exam: Low bmi, does she need supplemental protein drinks Discharge provider: Marian Vivas MD Summary Hospital Course Discharge Diagnosis: Concern for UTI, acute Confirmation of negative urine culture Frequent falls, acute and present on admission Left 4th and 5fth ribs Distal 4th and 5th metacarpal fractures of the left hand Protein calorie malnutrition, likely chronic Supernuclear palsy, chronic Dementia, chronic Hypertension Iron deficiency Osteoporosis Parkinsons Hospital Course: Philomena Stone?is a 81-year-old female resident of an adult family home with a history of dementia, hypertension and supranuclear palsy with frequent falls presented to the ED after a fall.? She somehow fell on a dresser and she had an obvious left 5th pinky deformity and laceration.? She did complain of upper left sided abdominal pain, nausea and vomiting.? She has frequent falls.? Not on anticoagulation.?She stated that staff where she lives do not respond to her requests for help to the bathroom, so she tried to ambulate unsupervised or unassisted. Chest xray done in the ED indicated minimally displaced left lateral 4th and 5th rib fractures. Xray of the left hand indicated medial dislocation at the 5th PIP joint with suspected distal 5th metacarpal fracture. Re-read of the left hand xray also identified a mildly displaced fracture of the distal 4th metacarpal. Today she was also found to have a urinary tract infection, prior microbiology grew out E.coli sensitive to ceftriaxone. She presented w/a fever of 100.? Blood pressure is 156/59 heart rate 80 respiratory rate 16 oxygen saturation 96% on room air she weighs 39.5 kg with a BMI of 15.9. She is mildly anemic with a hemoglobin and hematocrit of 11.6 and 33.5 she has a high platelet count of 438, chemistries was unremarkable and she does have elevated total CK of 155 and a CK-MB of 3.09. Ttroponin was negative, procalcitonin was negative she did have trace ketones in her urine as well as presence of urine WBC and meets criteria for urine culture.? COVID-19 PCR was negative. Urine culture improved to be negative after initiating ceftriaxone 1 g IV every 24 hours. The antibiotics were discontinued once the culture results were known. On the day of discharge patient was hemodynamically stable with blood pressure 131/55 heart rate 60 respiratory rate 20. O2 saturation 96% on room air. White blood count 7.4 hemoglobin 10.7 platelets 426 sodium 133 potassium 3.2 (pharmacy replaced), GFR greater than 60. Physical therapy evaluated the patient and recommended going home with ability to have assist when needed. Patient was discharged in baseline condition with healing fractures as described as above. Status at Discharge Cognitive/behavioral status at discharge: at baseline, oriented Functional status at discharge: independent ambulation (Patient requires hand holding assistance when ambulating) Overall status at discharge: patient is progressing back to baseline Time Spent with Patient Time spent: Greater than 30 minutes Exam Vital Signs (past 8 hours): - 04/11/22 09:16 04/11/22 07:40 04/11/22 11:45 Temperature 99.5 F 98.0 F Pulse Rate 79 74 60 Respiratory Rate 15 20 Blood Pressure 156/64 H 146/63 H 131/55 L Pulse Oximetry 95 96 Oxygen Flow Rate 0 04/11/22 11:55 Temperature 98.3 F Pulse Rate 60 Respiratory Rate 20 Blood Pressure 131/55 L Pulse Oximetry 96 Oxygen Flow Rate 0 Oxygen Delivery Method Room Air Oxygen Flow Rate 0 Narrative Exam Narrative: Gen: Alert, oriented, thin and frail-appearing female, NAD HEENT: normocephalic, atraumatic, conjunctiva clear, sclera non-icteric, oral mucosa pink and moist Neck: supple, full ROM, no JVD, trachea is midline Resp: Lungs CTA, non-labored breathing CV: RRR, no murmur or rubs Abd: soft, non-tender, normoactive BTs Skin: no lesions or rashes, dry and intact Neuro: No neurological symptoms in the extremities other than movement consistent with Parkinson's. Extremities: left hand in splint with Negro wrap, some swelling in her fingers with bruising, moves all 4 extremities, is ambulatory withhold hand holding assistance, negative Rajeev?s sign Psyche: normal mood and affect. Objective Labs 04/11/22 04:18 04/11/22 04:18 Labs: Laboratory Results - last 24 hr 04/10/22 04/11/22 04/11/22 05:30 04:18 04:18 WBC 7.4 RBC 3.30 L Hgb 10.7 L Hct 31.4 L MCV 95.2 MCH 32.3 MCHC 33.9 RDW 14.4 Plt Count 426 H Neut % (Auto) 67.4 Lymph % (Auto) 21.1 L Cabell % (Auto) 10.4 Eos % (Auto) 0.7 L Baso % (Auto) 0.4 Neut # (Auto) 5000 Lymph # (Auto) 1500 [place]ell # (Auto) 800 Eos # (Auto) 100 Baso # (Auto) 0 Sodium 133 L Potassium 3.2 L Chloride 101 Carbon Dioxide 26 BUN 13 Creatinine 0.50 L Estimated GFR > 60 BUN/Creatinine Ratio 26.0 H Glucose 95 Calcium 7.9 L Magnesium 1.9 2.0 Total Bilirubin 0.4 AST 28 ALT 10 Alkaline Phosphatase 83 Total Protein 7.0 Albumin 3.8 Globulin 3.2 Albumin/Globulin Ratio 1.2 [facility] Medical History (Updated 04/10/22 @ 00:00 by ) Dementia Hypertension Iron deficiency Mild protein-calorie malnutrition (weight for age 75-89% of standard) Osteoporosis Parkinsons Progressive supranuclear palsy Social History household members: caregiver Smoking Status: Never smoker Discharge Plan Discharge Plan Patient Disposition: Home Provider Discharge Comment: Patient should wear splint left hand for 1 month and then have it removed. Patient to be should be assessed by her primary care physician within 1 week, Dr. Casanova. Patient needs hand-held assistance for walking and this should be provided in her place of residence. Discharge orders & Medications Prescriptions: New melatonin 3 mg Tablet 6 mg PO BEDTIME Qty: 30 0RF docusate sodium 100 mg Capsule 100 mg PO BID Qty: 60 0RF Continued metoprolol succinate 25 mg tablet extended release 24 hr 25 mg PO QAM multivitamin Tablet 1 tab PO QAM alendronate 70 mg tablet 70 mg PO WEEKLY cyanocobalamin (vitamin B-12) 1,000 mcg tablet 1,000 mcg PO QAM aspirin 81 mg tablet,delayed release (DR/EC) 81 mg PO QAM acetaminophen 500 mg tablet 500 mg PO Q6HR PRN (Reason: pain/ fever) trazodone 100 mg tablet 100 mg PO BEDTIME ascorbic acid (vitamin C) 250 mg tablet 250 mg PO QAM carbidopa-levodopa 25-100 mg tablet 2 tab PO TID sertraline 50 mg tablet 100 mg PO QAM ferrous gluconate 324 mg (38 mg iron) tablet 324 mg PO DAILY calcium carbonate-vitamin D3 600 mg-10 mcg (400 unit) tablet 1 tab PO QAM Discontinued zolpidem 6.25 mg tablet,ext release multiphase 6.25 mg PO BEDTIME PRN (Reason: Insomnia) Follow up/Referrals: Nadia Casanova MD [Primary Care Provider] - Visit Report/Discharge Packet Stand Alone Forms: Patient Portal/API, Stroke Signs & Symptoms Discharge Data Primary Care Provider: Nadia Casanova Attending Provider: Marian Vivas
--- NOTE | 2022-04-11 17:31 | PC.NURSE ---
Pt A&OX1. VSS, afebrile on RA. She is able to participate with therapy. L hand in splint, swollen bruised fingers but able to move. She is able to drink ensure, pills in applesuace. pt is cleared this afternoon for discharge home. Son arrives to transport patient home. He verbalizes understanding of discharge medications, activity and follow up care. She is transported via w/ch with RN to private vehicle with son with all of her belongings at approximately 1620 this afternoon.
== END 2022-04-11 16:20 | disposition home or self-care (01) ==
LOC: ED 17:03 → AC 17:04
PROVIDERS: Nurse Practitioner Family; Admitting Provider Neuromusculoskeletal Medicine, Sports Medicine; Emergency Provider Emergency Medicine; PCP Student in an Organized Health Care Education/Training Program; Visit Provider Neuromusculoskeletal Medicine, Sports Medicine
DX: S61.217A Laceration without foreign body of left little finger without damage to nail, initial encounter (principal); S62.395A Other fracture of fourth metacarpal bone, left hand, initial encounter for closed fracture; S62.337A Displaced fracture of neck of fifth metacarpal bone, left hand, initial encounter for closed fracture; W01.190A Fall on same level from slipping, tripping and stumbling with subsequent striking against furniture, initial encounter; R29.6 Repeated falls; Z91.81 History of falling; Y92.099 Unspecified place in other non-institutional residence as the place of occurrence of the external cause; F03.90 Unspecified dementia, unspecified severity, without behavioral disturbance, psychotic disturbance, mood disturbance, and anxiety; I10 Essential (primary) hypertension; G23.1 Progressive supranuclear ophthalmoplegia [Steele-Richardson-Olszewski]; N39.0 Urinary tract infection, site not specified; E46 Unspecified protein-calorie malnutrition; Z68.1 Body mass index [BMI] 19.9 or less, adult; Z20.822 Contact with and (suspected) exposure to COVID-19
CPT/HCPCS: 12001; 26605; 29125; 36415; 70450; 71045; 73120; 73130; 80053; 81001; 81003; 82550; 82553; 82962; 83605; 83735; 84145; 84484; 85025; 87086; 87635; 96361; 96365; 96372; 97116; 97162; 97530; 99284; C9803; G0378; J0696; J1650

== ENCOUNTER 2022-04-16 12:04 | Emergency (ER) | payer MEDICARE, SELFPAY ==
[2022-04-09 18:41] VITALS: BMI 15.9
[2022-04-16 12:05] VITALS: BP 178/74; PULSE 77; RESP 14; TEMP 36.6; O2SAT 97
--- NOTE | 2022-04-16 12:18 | DI.RAD.S_ITS ---
PROCEDURE: XR HAND LT MIN 3V INDICATIONS: increase swelling with known fracture TECHNIQUE: 3 views of the hand(s) acquired. COMPARISON: [facility], CR, XR HAND LT 2V, 04/09/2022, 15:42. FINDINGS: Bones: Degenerative changes of the interphalangeal joints and 1st carpometacarpal joint. There are fractures of the heads of the 4th and 5th metacarpals. Soft tissues: No suspicious soft tissue calcifications. IMPRESSION: Fractures of the heads of the 4th and 5th metacarpals. Dictated by: Terence Howard M.D. on 04/16/2022 at 12:19 Approved by: Terence Howard M.D. on 04/16/2022 at 12:29
--- NOTE | 2022-04-16 12:18 | ED.GENADULT ---
HPI - General Adult General Chief complaint: Trauma Stated complaint: fall Time Seen by Provider: 04/16/22 12:09 Source: patient and EMS Mode of arrival: EMS History of Present Illness HPI narrative: 81-year-old female. Not on blood thinners. Arrives by EMS at baseline mental status per their report and at the facility where she lives. Patient has multiple falls. Does reported that she was getting out of bed and this staff heard her fall. She is a known fractured left wrist and is very swollen and bruised. She also is a cut to the back of her head. Patient states she did fall getting out of bed. She reports no pain. No pain to her left wrist. Related Data Home Medications Medication Instructions Recorded Confirmed acetaminophen 500 mg tablet 500 mg PO Q6HR PRN pain/ fever 03/26/22 04/10/22 alendronate 70 mg tablet 70 mg PO WEEKLY 03/26/22 04/10/22 ascorbic acid (vitamin C) 250 mg 250 mg PO QAM 03/26/22 04/10/22 tablet aspirin 81 mg tablet,delayed 81 mg PO QAM 03/26/22 04/10/22 release calcium carbonate 600 mg-vitamin 1 tab PO QAM 03/26/22 04/10/22 D3 10 mcg (400 unit) tablet carbidopa 25 mg-levodopa 100 mg 2 tab PO TID 03/26/22 04/10/22 tablet cyanocobalamin (vitamin B-12) 1,000 mcg PO QAM 03/26/22 04/10/22 1,000 mcg tablet ferrous gluconate 324 mg (38 mg 324 mg PO DAILY 03/26/22 04/10/22 iron) tablet metoprolol succinate 25 mg 25 mg PO QAM 03/26/22 04/10/22 tablet,extended release 24 hr multivitamin 1 tab PO QAM 03/26/22 04/10/22 sertraline 50 mg tablet 100 mg PO QAM 03/26/22 04/10/22 trazodone 100 mg tablet 100 mg PO BEDTIME 03/26/22 04/10/22 Previous Rx's Medication Instructions Recorded docusate sodium 100 mg capsule 100 mg PO BID #60 caps 04/11/22 melatonin 3 mg tablet 6 mg PO BEDTIME #30 tabs 04/11/22 Allergies Allergy/AdvReac Type Severity Reaction Status Date / Time Sulfa (Sulfonamide Allergy Hives Verified 03/26/22 09:40 Antibiotics) Review of Systems Constitutional Constitutional: Reports system reviewed and no additional complaints, except as documented Cardiovascular Cardiovascular: Reports system reviewed and no additional complaints, except as documented Respiratory Respiratory: Reports system reviewed and no additional complaints, except as documented Integumentary/Breasts Skin/Breast: Reports system reviewed and no additional complaints, except as documented Neurologic Neurologic: Reports system reviewed and no additional complaints, except as documented Hematologic/Lymphatic On Anticoagulants: No Patient History Medical History Dementia Hypertension Iron deficiency Mild protein-calorie malnutrition (weight for age 75-89% of standard) Osteoporosis Parkinsons Progressive supranuclear palsy Social History household members: caregiver Smoking Status: Never smoker Smoking Status: Never smoker alcohol intake frequency: holidays/special occasions only Alcohol type: wine Substance Use Type: does not use Exam Initial Vital Signs Initial Vital Signs: Vital Signs Temperature 97.8 F 04/16/22 12:05 Pulse Rate 77 04/16/22 12:05 Respiratory Rate 14 04/16/22 12:05 Blood Pressure 178/74 H 04/16/22 12:05 Pulse Oximetry 97 04/16/22 12:05 Oxygen Delivery Method Room Air 04/16/22 12:05 HENMT Head: laceration (2 cm cut to back of head) Resp Effort & Inspection: normal respiratory effort Auscultation: clear to auscultation bilaterally Cardio Rate: regular rate Rhythm: regular rhythm Skin Other: Bruising to left hand hand swelling Neuro Speech: speech normal Extrem General: capillary refill normal Procedures Laceration Repair Laceration 1: Site: scalp Description: linear Depth: simple, single layer Local Anesthetic: lidocaine 1% and with epi Amount of anesthesia used (mL): 2 Pre-repair: wound explored Skin layer closed with: jenifer Orthopedic Splinting/Casting Injury #1: Side: left Upper Extremity Injury Location: hand Upper Extremity Immobilizer: volar splint Post splinting neuro exam: intact Post splinting vascular exam: intact Placed by: Nursing Course Orders Ordered: ED Orders 04/16/22 12:18 XR hand LT min 3V Stat Vital Signs Vital signs: Vital Signs - 8 hr 04/16/22 12:05 04/16/22 15:08 Temperature 97.8 F Pulse Rate 77 90 Respiratory Rate 14 Blood Pressure 178/74 H 167/74 H Pulse Oximetry 97 95 Oxygen Delivery Method Room Air Room Air Medical Decision Making Imaging Data Extremity x-ray #1: Radiologist's Impression: [address] [id number] XRay Report Signed Patient: Philomena Stone MR#: [id number] : 1940 Acct:[id number] Age/Sex: 81 / F Date of Service: 04/16/22 Loc: ED Accession Number: [id number] ?? Procedure: XR hand LT min 3V Ordering Provider: Fawad Yusuf D.O. PROCEDURE:? XR HAND LT MIN 3V ? INDICATIONS:? increase swelling with known fracture ? TECHNIQUE:? 3 views of the hand(s) acquired.? ? COMPARISON:? [facility], CR, XR HAND LT 2V, 04/09/2022, 15:42. ? FINDINGS:? ? Bones:? Degenerative changes of the interphalangeal joints and 1st carpometacarpal joint. ?There are fractures of the heads of the 4th and 5th metacarpals. ? Soft tissues:? No suspicious soft tissue calcifications.? ? ? IMPRESSION:? Fractures of the heads of the 4th and 5th metacarpals. ? ? Dictated by: Terence Howard M.D. on 04/16/2022 at 12:19 ? ? Approved by: Terence Howard M.D. on 04/16/2022 at 12:29?? MDM Narrative Medical decision making narrative: The laceration on the back of her scalp was closed with jenifer as described above. She would significant swelling and discoloration to her left hand and I suspect that was because the splint that was placed in the Negro bandage was too tight. This was removed in the swelling in the color vascularly improved. X-ray shows continued fractures. Because of the issues with the prior splint and the swelling that she is having will place her in a volar splint. This is not as ideal has a ulnar gutter given her injuries however given how much she has been swelling I feel that would less likely cause larger issues. Will discharge patient home with instructions that she does need to follow-up with orthopedics although given her age and other medical issues I have low suspicion that there would be any surgical intervention. Discharge Plan Departure Patient Disposition: Home Clinical Impression: Laceration of scalp Instructions: DI for Laceration Repair -- [place] Activity Restrictions/Additional Instructions: We did put jenifer in the laceration in the back of her head that do need to be removed in 7-10 days. I also replace the splint on her left hand. It is important that she follows up with Orthopedics at the number provided below if she does not yet have a scheduled appointment. The splint needs to stay on and be treated like a cast. Prescriptions: No Action metoprolol succinate 25 mg tablet extended release 24 hr 25 mg PO QAM multivitamin Tablet 1 tab PO QAM alendronate 70 mg tablet 70 mg PO WEEKLY cyanocobalamin (vitamin B-12) 1,000 mcg tablet 1,000 mcg PO QAM aspirin 81 mg tablet,delayed release (DR/EC) 81 mg PO QAM acetaminophen 500 mg tablet 500 mg PO Q6HR PRN (Reason: pain/ fever) trazodone 100 mg tablet 100 mg PO BEDTIME ascorbic acid (vitamin C) 250 mg tablet 250 mg PO QAM carbidopa-levodopa 25-100 mg tablet 2 tab PO TID sertraline 50 mg tablet 100 mg PO QAM ferrous gluconate 324 mg (38 mg iron) tablet 324 mg PO DAILY calcium carbonate-vitamin D3 600 mg-10 mcg (400 unit) tablet 1 tab PO QAM melatonin 3 mg Tablet 6 mg PO BEDTIME Qty: 30 0RF docusate sodium 100 mg Capsule 100 mg PO BID Qty: 60 0RF Referrals: Josselyn Griffin MD [Physician] - Nadia Casanova MD [Primary Care Provider] - Stand Alone Forms: Patient Portal/API
--- NOTE | 2022-04-16 13:49 | PC.NURSE ---
pt asked for bedpan assisted pt to bedpan pt couldn't go then we tried commode pt said ok im all done noticed pt did not go at all asked pt if she would like to try again pt sat but did not go informed nurse of this
[2022-04-16 15:08] VITALS: BP 167/74; PULSE 90; O2SAT 95
== END 2022-04-16 15:28 | disposition home or self-care (01) ==
PROVIDERS: Emergency Provider Emergency Medicine; PCP Student in an Organized Health Care Education/Training Program
DX: S01.01XA Laceration without foreign body of scalp, initial encounter (principal); S62.608A Fracture of unspecified phalanx of other finger, initial encounter for closed fracture; W06.XXXA Fall from bed, initial encounter; R29.6 Repeated falls
CPT/HCPCS: 29125; 51798; 73130; 99283

== ENCOUNTER 2022-05-11 21:17 | Emergency (ER) | payer MEDICARE, SELFPAY ==
[2022-04-09 18:41] VITALS: BMI 15.9
[2022-05-11] VITALS (7 sets, daily range): BP systolic 168–182; BP diastolic 71–79; PULSE 72–85; RESP 18–20; TEMP 36.6; O2SAT 96–98; BMI 18.8
--- NOTE | 2022-05-11 21:39 | DI.CT.S_ITS ---
PROCEDURE: CT HEAD/BRAIN WO CON INDICATIONS: fall with head injury TECHNIQUE: Noncontrast 4.5 mm thick angled axial sections acquired from the foramen magnum to the vertex, with coronal and sagittal reformats. For radiation dose reduction, the following was used: automated exposure control, adjustment of mA and/or kV according to patient size. COMPARISON: [facility], CT, CT HEAD/BRAIN WO CON, 04/09/2022, 14:46. FINDINGS: Image quality: There is mild motion artifact. CSF spaces: Basal cisterns are patent. No extra-axial fluid collections. There is moderate cerebral volume loss, with resultant ventricular and sulcal prominence. Brain: No intracranial hemorrhage, mass, or mass effect. There are subcortical, periventricular and deep white matter hypodensities consistent with moderate chronic small vessel ischemic changes. The saldaña-white matter junction appears preserved. There is intracranial internal carotid artery atherosclerosis. Skull and face: Calvarium and visualized facial bones appear intact, without suspicious lesions. Sinuses: Visualized sinuses and mastoids are clear. IMPRESSION: 1. No acute intracranial abnormality. 2. Moderate cerebral volume loss and chronic white matter small vessel ischemic changes. Dictated by: Yeyo Sims M.D. on 05/11/2022 at 22:41 Approved by: Yeyo Sims M.D. on 05/11/2022 at 22:42
--- NOTE | 2022-05-11 21:39 | ED.FALL ---
HPI - Fall General Chief Complaint: Fall Stated Complaint: GLF Time Seen by Provider: 05/11/22 21:18 Source: patient and EMS Mode of arrival: EMS History of Present Illness HPI Narrative: 81F nonsmoker with noncontributory medical history presents for evaluation of a ground level fall with a facial laceration. This was purely a mechanical fall, she has full recall of the event and complains only of a laceration above her left eye. She denies any blurred vision, trouble speech or neck pain. She has no chest pain or shortness of breath. She denies known to come vomiting or diarrhea. Related Data Home Medications Medication Instructions Recorded Confirmed acetaminophen 500 mg tablet 500 mg PO Q6HR PRN pain/ fever 03/26/22 04/10/22 alendronate 70 mg tablet 70 mg PO WEEKLY 03/26/22 04/10/22 ascorbic acid (vitamin C) 250 mg 250 mg PO QAM 03/26/22 04/10/22 tablet aspirin 81 mg tablet,delayed 81 mg PO QAM 03/26/22 04/10/22 release calcium carbonate 600 mg-vitamin 1 tab PO QAM 03/26/22 04/10/22 D3 10 mcg (400 unit) tablet carbidopa 25 mg-levodopa 100 mg 2 tab PO TID 03/26/22 04/10/22 tablet cyanocobalamin (vitamin B-12) 1,000 mcg PO QAM 03/26/22 04/10/22 1,000 mcg tablet ferrous gluconate 324 mg (38 mg 324 mg PO DAILY 03/26/22 04/10/22 iron) tablet metoprolol succinate 25 mg 25 mg PO QAM 03/26/22 04/10/22 tablet,extended release 24 hr multivitamin 1 tab PO QAM 03/26/22 04/10/22 sertraline 50 mg tablet 100 mg PO QAM 03/26/22 04/10/22 trazodone 100 mg tablet 100 mg PO BEDTIME 03/26/22 04/10/22 Previous Rx's Medication Instructions Recorded docusate sodium 100 mg capsule 100 mg PO BID #60 caps 04/11/22 melatonin 3 mg tablet 6 mg PO BEDTIME #30 tabs 04/11/22 Allergies Allergy/AdvReac Type Severity Reaction Status Date / Time Sulfa (Sulfonamide Allergy Hives Verified 05/11/22 21:25 Antibiotics) Review of Systems Review of Systems Narrative: GENERAL: Denies chills, fatigue, malaise, fever, sweats. HEENT: Denies sinus pain, ear pain, sore throat, difficulty swallowing, dizziness. RESPIRATORY: Denies dyspnea, cough, wheezing, hemoptysis, sputum. CARDIOVASCULAR: Denies chest pain, palpitations, orthopnea, edema, GASTROINTESTINAL: Denies nausea, vomiting, abdominal pain, diarrhea, constipation, melena. : Denies dysuria, frequency, incontinence, hematuria, urinary retention. MUSCULOSKELETAL: denies weakness, joint pain, or bony pain SKIN: See HPI NEUROLOGIC: Denies weakness, headache, numbness, change in speech, confusion, seizures, incoordination. PSYCHIATRIC: No concerning psychosocial issues. 12 point review of systems is negative except for those stated above Patient History Medical History Dementia Hypertension Iron deficiency Mild protein-calorie malnutrition (weight for age 75-89% of standard) Osteoporosis Parkinsons Progressive supranuclear palsy Social History household members: caregiver Smoking Status: Never smoker Smoking Status: Never smoker alcohol intake frequency: holidays/special occasions only Alcohol type: wine Substance Use Type: does not use Exam Narrative Exam Narrative: GENERAL: [81] year old patient appears stated age. Well-developed patient, in mild distress. GCS 15 HEAD:3 cm stellate laceration above and lateral to left brow. Otherwise no abrasion, laceration or evidence of depressed skull fracture EYES: Pupils equal round and reactive. No hyphema Extraocular motions intact. No scleral icterus. No injection or drainage. ENT: Nose without bleeding, purulent drainage. Throat without erythema, tonsillar hypertrophy or exudate. Airway patent. NECK: Trachea midline. Non tender CARDIOVASCULAR: Regular rate and rhythm without murmurs, gallops, or rubs. RESPIRATORY: Clear to auscultation. Breath sounds equal bilaterally. No wheezes, rales, or rhonchi. GASTROINTESTINAL: Abdomen soft, non-tender, nondistended. EXTREMITIES: No edema or joint tenderness. BACK: Nontender without deformity or crepitance. No flank tenderness. NEURO: AOx3. SKIN: No rash or erythema of visible areas Initial Vital Signs Initial Vital Signs: Vital Signs Pulse Rate 73 05/11/22 21:20 Blood Pressure 182/78 H 05/11/22 21:20 Pulse Oximetry 98 05/11/22 21:20 Procedures Laceration Repair Laceration 1: Site: face Side (If applicable): left Size (cm): 3 Description: stellate Depth: simple, single layer Local Anesthetic: lidocaine 2% and with epi Amount of anesthesia used (mL): 3 Pre-repair: wound explored Skin layer closed with: nylon Skin layer suture size: 6-0 Number of sutures: 5 Technique: simple, interrupted Course Vital Signs Vital signs: Vital Signs - 8 hr 05/11/22 21:21 Temperature 97.8 F Pulse Rate 72 Respiratory Rate 20 Blood Pressure 182/78 H Pulse Oximetry 98 Oxygen Delivery Method Room Air MDM - Fall MDM Narrative Medical decision making narrative: [81] year old patient presents with ground level fall and facial laceration Multiple etiologies for patient's symptoms considered including, but not limited to: [Intracranial hemorrhage, laceration versus other] Prior Charts reviewed in our EMR Primary Historian: patient Imaging reviewed: Head CT unremarkable Patient's symptoms improved over duration of stay with above-stated therapies. Findings and discharge diagnosis discussed with patient/family followed by verbalization of understanding Return precautions discussed with patient/family whom verbalize understanding of diagnosis and plan Discharge Plan Departure Patient Disposition: Home Clinical Impression: Facial laceration Instructions: DI for Laceration Repair Activity Restrictions/Additional Instructions: *You have been diagnosed with [ fall with facial laceration] *What to do: *Please continue to take your regular medications as directed. [ ] New medication prescriptions sent to your pharmacy: [ ] [ ] New medication written as a paper prescription [ ] No new medications given * Please keep the wound clean and dry to the best of your ability. Please monitor for signs of infection such as redness to the skin or increasing pain. Have the sutures/jenifer removed by your doctor in about 7 days. If you are unable to get into your doctor, we would be happy to remove the sutures/jenifer in that same timeframe. *If you do not have a primary care provider please contact the [facility] Resource line at [phone]. They will ask some questions about your medical history and help get you set up with a doctor in the community. *Return to Emergency Department if you should have any new, worsening or concerning symptoms, such as [fever greater than 101 F, shaking chills, worsening pain, persistent vomiting or other bothersome symptoms] Prescriptions: No Action metoprolol succinate 25 mg tablet extended release 24 hr 25 mg PO QAM multivitamin Tablet 1 tab PO QAM alendronate 70 mg tablet 70 mg PO WEEKLY cyanocobalamin (vitamin B-12) 1,000 mcg tablet 1,000 mcg PO QAM aspirin 81 mg tablet,delayed release (DR/EC) 81 mg PO QAM acetaminophen 500 mg tablet 500 mg PO Q6HR PRN (Reason: pain/ fever) trazodone 100 mg tablet 100 mg PO BEDTIME ascorbic acid (vitamin C) 250 mg tablet 250 mg PO QAM carbidopa-levodopa 25-100 mg tablet 2 tab PO TID sertraline 50 mg tablet 100 mg PO QAM ferrous gluconate 324 mg (38 mg iron) tablet 324 mg PO DAILY calcium carbonate-vitamin D3 600 mg-10 mcg (400 unit) tablet 1 tab PO QAM melatonin 3 mg Tablet 6 mg PO BEDTIME Qty: 30 0RF docusate sodium 100 mg Capsule 100 mg PO BID Qty: 60 0RF Referrals: Nadia Casanvoa MD [Primary Care Provider] - Stand Alone Forms: Patient Portal/API
== END 2022-05-11 23:22 | disposition home or self-care (01) ==
PROVIDERS: Emergency Provider Emergency Medicine; PCP Student in an Organized Health Care Education/Training Program
DX: S01.81XA Laceration without foreign body of other part of head, initial encounter (principal); W18.30XA Fall on same level, unspecified, initial encounter; Z79.899 Other long term (current) drug therapy
CPT/HCPCS: 12013; 70450; 99283; 99284

== ENCOUNTER 2022-05-23 09:10 | Emergency (ER) | payer MEDICARE, SELFPAY ==
[2022-04-09 18:41] VITALS: BMI 15.9
[2022-05-23 09:46] VITALS: BP 134/61; PULSE 80; RESP 14; TEMP 36.2; O2SAT 99
--- NOTE | 2022-05-23 10:18 | ED.RECABL ---
HPI - Recheck/Abnormal Lab/Rx General Chief Complaint: Recheck/Abnormal Lab/Rx Stated Complaint: remove stitches above left eye Time Seen by Provider: 05/23/22 10:05 Source: patient and family Mode of arrival: Ambulatory History of Present Illness HPI narrative: Patient is an 81-year-old female who is here for evaluation of stitches removal from above her left eye. Approximately 1 week ago she fell sustained a laceration and had stitches placed. She is here to have those removed. Related Data Home Medications Medication Instructions Recorded Confirmed acetaminophen 500 mg tablet 500 mg PO Q6HR PRN pain/ fever 03/26/22 04/10/22 alendronate 70 mg tablet 70 mg PO WEEKLY 03/26/22 04/10/22 ascorbic acid (vitamin C) 250 mg 250 mg PO QAM 03/26/22 04/10/22 tablet aspirin 81 mg tablet,delayed 81 mg PO QAM 03/26/22 04/10/22 release calcium carbonate 600 mg-vitamin 1 tab PO QAM 03/26/22 04/10/22 D3 10 mcg (400 unit) tablet carbidopa 25 mg-levodopa 100 mg 2 tab PO TID 03/26/22 04/10/22 tablet cyanocobalamin (vitamin B-12) 1,000 mcg PO QAM 03/26/22 04/10/22 1,000 mcg tablet ferrous gluconate 324 mg (38 mg 324 mg PO DAILY 03/26/22 04/10/22 iron) tablet metoprolol succinate 25 mg 25 mg PO QAM 03/26/22 04/10/22 tablet,extended release 24 hr multivitamin 1 tab PO QAM 03/26/22 04/10/22 sertraline 50 mg tablet 100 mg PO QAM 03/26/22 04/10/22 trazodone 100 mg tablet 100 mg PO BEDTIME 03/26/22 04/10/22 Previous Rx's Medication Instructions Recorded docusate sodium 100 mg capsule 100 mg PO BID #60 caps 04/11/22 melatonin 3 mg tablet 6 mg PO BEDTIME #30 tabs 04/11/22 Allergies Allergy/AdvReac Type Severity Reaction Status Date / Time Sulfa (Sulfonamide Allergy Hives Verified 05/23/22 09:52 Antibiotics) Review of Systems Integumentary/Breasts Skin/Breast: Reports system reviewed and no additional complaints, except as documented Patient History Medical History Dementia Hypertension Iron deficiency Mild protein-calorie malnutrition (weight for age 75-89% of standard) Osteoporosis Parkinsons Progressive supranuclear palsy Social History household members: caregiver Smoking Status: Never smoker Smoking Status: Never smoker alcohol intake frequency: holidays/special occasions only Alcohol type: wine Substance Use Type: does not use Exam Initial Vital Signs Initial Vital Signs: Vital Signs Temperature 97.1 F L 05/23/22 09:46 Pulse Rate 80 05/23/22 09:46 Respiratory Rate 14 05/23/22 09:46 Blood Pressure 134/61 05/23/22 09:46 Pulse Oximetry 99 05/23/22 09:46 Oxygen Delivery Method Room Air 05/23/22 09:46 Skin Other: The wound above the left eye appears very well. There were stitches in place. There is no signs of dehiscence. No signs of infection. Course Vital Signs Vital signs: Vital Signs - 8 hr 05/23/22 09:46 Temperature 97.1 F L Pulse Rate 80 Respiratory Rate 14 Blood Pressure 134/61 Pulse Oximetry 99 Oxygen Delivery Method Room Air MDM - Recheck/Abnormal Lab/Rx MDM Narrative Medical decision making narrative: Stitches removed from above the left eye without incident. There is no signs of infection. Discharge Plan Departure Patient Disposition: Home Clinical Impression: Encounter for removal of sutures Instructions: DI for Suture Removal Activity Restrictions/Additional Instructions: [place]omena and shower like normal. The wound appears well without any signs of infection. She can follow-up as needed. Prescriptions: No Action metoprolol succinate 25 mg tablet extended release 24 hr 25 mg PO QAM multivitamin Tablet 1 tab PO QAM alendronate 70 mg tablet 70 mg PO WEEKLY cyanocobalamin (vitamin B-12) 1,000 mcg tablet 1,000 mcg PO QAM aspirin 81 mg tablet,delayed release (DR/EC) 81 mg PO QAM acetaminophen 500 mg tablet 500 mg PO Q6HR PRN (Reason: pain/ fever) trazodone 100 mg tablet 100 mg PO BEDTIME ascorbic acid (vitamin C) 250 mg tablet 250 mg PO QAM carbidopa-levodopa 25-100 mg tablet 2 tab PO TID sertraline 50 mg tablet 100 mg PO QAM ferrous gluconate 324 mg (38 mg iron) tablet 324 mg PO DAILY calcium carbonate-vitamin D3 600 mg-10 mcg (400 unit) tablet 1 tab PO QAM melatonin 3 mg Tablet 6 mg PO BEDTIME Qty: 30 0RF docusate sodium 100 mg Capsule 100 mg PO BID Qty: 60 0RF Referrals: Nadia Casanova MD [Primary Care Provider] - Stand Alone Forms: Patient Portal/API
== END 2022-05-23 10:29 | disposition home or self-care (01) ==
PROVIDERS: Emergency Provider Emergency Medicine; PCP Student in an Organized Health Care Education/Training Program
DX: Z48.02 Encounter for removal of sutures (principal)
CPT/HCPCS: 99281